=== PATIENT | female | born 1940 | race Caucasian/White ===

== ENCOUNTER → 2018-05-10 08:41 | Outpatient (CLI) | payer MEDICARE, SELFPAY ==
[2018-05-10 11:20] LABS: ALB/GLOB Ratio 1.2 RATIO (0.9-2.4); AST(SGOT) 17 U/L (15-37); Alanine Aminotransfer ALT/SGPT 19 U/L (13-56); Albumin, Serum 3.8 g/dL (3.2-5.0); Alkaline Phosphatase 70 U/L (45-117); Anion Gap 8 (5-15); BUN 16 mg/dL (7-18); BUN/Creat Ratio 21.9 RATIO (10-20); Calcium,Total 8.4 mg/dL (8.5-10.1); Chloride 107 mmol/L (98-107); Creatinine, Serum 0.73 mg/dL (0.55-1.02); EST Glomerular Filtration Rate 82 mL/min (>60); Est Glom Filt Rate - Afr Amer 99 mL/min (>60); Globulin 3.1 g/dL (2.2-4.2); Glucose 95 mg/dL (74-106); Potassium 4.2 mmol/L (3.5-5.1); Protein, Total 6.9 g/dL (6.4-8.2); Sodium Level 142 mmol/L (136-145)
== END ==
PROVIDERS: Family Provider Family Medicine; PCP Family Medicine; Visit Provider Family Medicine
DX: Z00.00 Encounter for general adult medical examination without abnormal findings (principal)
CPT/HCPCS: 36415; 80053

== ENCOUNTER → 2018-07-18 08:11 | Outpatient (CLI) | payer MEDICARE, SELFPAY ==
--- NOTE | 2018-07-18 08:14 | BI_ITS ---
MAMMOGRAPHY - BILATERAL SCREENING REASON FOR EXAM: Female, 78 years old. Routine annual screening examination. PERTINENT HISTORY: Non-contributory. TECHNIQUE: Digital bilateral breast linnette (3D mammographic acquisition) in the CC and MLO projections. 2-D mediolateral oblique (MLO) and craniocaudad (CC) views of both breasts were obtained. CAD: Full Field Digital Mammography with Computer Added Detection was performed. COMPARISON: Comparison is made with prior study dated May 22, 2017 and December 14, 2015. FINDINGS: Breast Composition: There are scattered areas of fibroglandular density. There are no dominant masses or suspicious calcifications. Stable small benign-appearing bilateral axillary lymph nodes. No other significant abnormalities are identified. There has been no significant change since the prior study. BI/SCREENING MAMM (CAD), BILAT IMPRESSION: Stable bilateral screening mammogram. Yearly follow-up mammogram recommended. (A) ASSESSMENT CATEGORY: BIRADS Category 2: Benign. A letter regarding these results will be sent to the patient by the facility within 30 days. Approximately 10% of breast cancers are not detected by mammography. A normal mammogram should not delay biopsy of a clinically suspicious abnormality. [id number] Electronically Signed: Timur Mcduffie MD at 9:32 EST Tel [phone], Service support ,
--- NOTE | 2018-07-18 08:44 | BD_ITS ---
STUDY: DUAL ENERGY X-RAY ABSORPTIOMETRY / DXA REASON FOR EXAM: Female, 78 years old. The patient is postmenopausal. Loss of height. TECHNIQUE: Bone Mineral Density (BMD) measurements of lumbar spine and bilateral hips were obtained. COMPARISON: Comparison is made with prior study dated October 09, 2013. FINDINGS: Lumbar Spine (L1-L4): g/cm2 (1.668) / T-score (3.9) / Z-score (5.7) Findings are suggestive of normal bone density with a low fracture risk. Increased thoracic kyphosis. Left Femur Total: g/cm2 (1.228) / T-score (1.8) / Z-score (3.5) Left Femoral Neck: g/cm2 (1.190) / T-score (1.1) / Z-score (3.1) Right Femur Total: g/cm2 (1.161) / T-score (1.2) / Z-score (3.0) Right Femoral Neck: g/cm2 (1.126) / T-score (0.6) / Z-score (2.6) The T-Scores on the most recent prior examination were: Lumbar Spine (L1-L4): There has been improvement of bone density since the previous examination. Left Femur Total: which represents a worsening of 1.8%. Right Femur Total: which represents a worsening of 6.3%. BD/Dexa Bone Density Study IMPRESSION: The patient is considered normal as outlined below according to World Roderick Organization (WHO) criteria with a low fracture risk. There has been worsening of bone density since the previous examination. Reference Information: The T-score is the number of standard deviations above or below the standard which is normal for young adults at their peak bone mineral density. The World Health Organization (WHO) interprets the T-scores as follows: Above -1 Normal bone density Between -1 and -2.5 Osteopenia Equal to / or below -2.5 Osteoporosis As a practical clinical guideline, osteopenia may be graded as follows: Mild -1 through -1.5 Moderate -1.6 through -2.0 Severe -2.1 through -2.4 The Z-score is the number of standard deviations above or below age-matched controls. A Z-score of less than -1.5 would be considered abnormal. References: 1. NIH Osteoporosis and Related Bone Diseases http://www.osteo.org 2. International Society for Clinical Densitometry http://www.iscd.org 3. National Osteoporosis Foundation http://www.nof.org Electronically Signed: Timur Mcduffie MD at 10:07 EST Tel [phone], Service support ,
--- OUTSIDE RECORDS SUMMARY | 2018-09-03 01:12 | XMS RPT_ITS ---
:1940 Author Organization OHIP Care Team Providers Name Role Phone Rey Hussein Attending Unavailable Rey Hussein Referring Unavailable Rey Hussein Primary Care Unavailable DOCTOR, OUT OF TOWN Attending Unavailable Rey Hussein Attending Unavailable Rey Hussein Primary Care Unavailable PROBLEMS PROBLEMS DATE TYPE CONDITION / CODE ATTENDING STATUS SOURCE 07/18/2018 Unknown Z78.0 - Rey Hussein Active [facility] Asymptomatic Community menopausal state / Hospital Z78.0(ICD-10) Repository 07/18/2018 Unknown Z12.31 - Encounter Rey Hussein for screening Community mammogram for Hospital malignant neoplasm Repository of breast / Z12.31(ICD-10) 05/10/2018 Unknown Z00.00 - Encounter Rey Hussein for general adult [facility] Hospital examination Repository without abnormal findings / Z00.00(ICD-10) PROCEDURES PROCEDURES No Procedure Records FoundRESULTS RESULTS SCREENING MAMM (CAD), Observed: 07/18/2018 Status: F Source: [place] BILAT 8:14 AM [facility] REPOSITORY [facility] Imaging Services [address] [address] SCREENING MAMM (CAD), BILAT MR#: [id number] Acct: [id number] Name: PATRICIA CAMPOS Rep #: [id number] : 1940 F 78 From: Timur Mcduffie MD PCP: Rey Hussein MD Status: REG CLI Study: SCREENING MAMM (CAD), BILAT Date of Exam: 07/18/18 Exam# [id number] Ordering Dr: Rey Hussein MD MAMMOGRAPHY - BILATERAL SCREENING REASON FOR EXAM: Female, 78 years old. Routine annual screening examination. PERTINENT HISTORY: Non-contributory. TECHNIQUE: Digital bilateral breast linnette (3D mammographic acquisition) in the CC and MLO projections. 2-D mediolateral oblique (MLO) and craniocaudad (CC) views of both breasts were obtained. CAD: Full Field Digital Mammography with Computer Added Detection was performed. COMPARISON: Comparison is made with prior study dated May 22, 2017 and December 14, 2015. FINDINGS: Breast Composition: There are scattered areas of fibroglandular density. There are no dominant masses or suspicious calcifications. Stable small benign-appearing bilateral axillary lymph nodes. No other significant abnormalities are identified. There has been no significant change since the prior study. BI/SCREENING MAMM (CAD), BILAT IMPRESSION: Stable bilateral screening mammogram. Yearly follow-up mammogram recommended. (A) ASSESSMENT CATEGORY: BIRADS Category 2: Benign. A letter regarding these results will be sent to the patient by the facility within 30 days. Approximately 10% of breast cancers are not detected by mammography. A normal mammogram should not delay biopsy of a clinically suspicious abnormality. [id number] Electronically Signed: Timur Mcduffie MD at 9:32 EST Tel [phone], Service support , CC: Rey Hussein MD Auger Machine Offbearer: Signed DEXA BONE DENSITY Observed: 07/18/2018 Status: F Source: [facility] 8:14 AM [facility] [place] Imaging Services [address] [place] [address] Dexa Bone Density Study MR#: [id number] Acct: [id number] Name: PATRICIA CAMPOS Rep #: [id number] : 1940 F 78 From: Timur Mcduffie MD PCP: Rey Hussein MD Status: REG CLI Study: Dexa Bone Density Study Date of Exam: 07/18/18 Exam# [id number] Ordering Dr: Rey Hussein MD STUDY: DUAL ENERGY X-RAY ABSORPTIOMETRY / DXA REASON FOR EXAM: Female, 78 years old. The patient is postmenopausal. Loss of height. TECHNIQUE: Bone Mineral Density (BMD) measurements of lumbar spine and bilateral hips were obtained. COMPARISON: Comparison is made with prior study dated October 09, 2013. FINDINGS: Lumbar Spine (L1-L4): g/cm2 (1.668) / T-score (3.9) / Z-score (5.7) Findings are suggestive of normal bone density with a low fracture risk. Increased thoracic kyphosis. Left Femur Total: g/cm2 (1.228) / T-score (1.8) / Z-score (3.5) Left Femoral Neck: g/cm2 (1.190) / T-score (1.1) / Z- score (3.1) Right Femur Total: g/cm2 (1.161) / T-score (1.2) / Z- score (3.0) Right Femoral Neck: g/cm2 (1.126) / T-score (0.6) / Z- score (2.6) The T-Scores on the most recent prior examination were: Lumbar Spine (L1-L4): There has been improvement of bone density since the previous examination. Left Femur Total: which represents a worsening of 1.8%. Right Femur Total: which represents a worsening of 6.3%. BD/Dexa Bone Density Study IMPRESSION: The patient is considered normal as outlined below according to World Roderick Organization (WHO) criteria with a low fracture risk. There has been worsening of bone density since the previous examination. Reference Information: The T-score is the number of standard deviations above or below the standard which is normal for young adults at their peak bone mineral density. The World Health Organization (WHO) interprets the T-scores as follows: Above -1 Normal bone density Between -1 and -2.5 Osteopenia Equal to / or below -2.5 Osteoporosis As a practical clinical guideline, osteopenia may be graded as follows: Mild -1 through -1.5 Moderate -1.6 through -2.0 Severe -2.1 through -2.4 The Z-score is the number of standard deviations above or below age-matched controls. A Z-score of less than -1.5 would be considered abnormal. References: 1. NIH Osteoporosis and Related Bone Diseases http://www.osteo.org 2. International Society for Clinical Densitometry http://www.iscd.org 3. National Osteoporosis Foundation http://www.nof.org Electronically Signed: Timur Mcduffie MD at 10:07 EST Tel [phone], Service support , CC: Rey Hussein MD Auger Machine Offbearer: Signed COMPREHENSIVE METABOLIC Collected: 05/10/2018 Status: F Source: [place] [facility] 8:42 AM [facility] [place] TYPE CODE TESTS RESULT OUT OF RANGE REFERENCE UNITS LAB L501.0100 74-106 mg/dL Normal GLU 95 Result Comment: Please note revised GLUCOSE reference range effective 2017. LAB L501.1000 7-18 mg/dL Normal BUN 16 LAB L501.1100 0.55-1.02 mg/dL Normal CREAT,SERUM 0.73 Result Comment: The validity of the calculated GFR AND GFRAA in patients over 70 years has not been determined. Clinical correlation is essential. LAB L501.1110 >60 mL/min Normal EST GFR 82 Result Comment: Non- GFR Calc LAB L501.1115 >60 mL/min Normal EST GFR - AA 99 Result Comment: GFR Calc LAB L501.1300 10-20 RATIO High BUN/CRE 21.9 LAB L501.1500 6.4-8.2 g/dL T Normal PROT 6.9 LAB L501.1800 3.2-5.0 g/dL Normal ALB 3.8 LAB L501.1950 2.2-4.2 g/dL Normal GLOB 3.1 LAB L501.2000 0.9-2.4 RATIO Normal A/G 1.2 LAB L501.2200 8.5-10.1 mg/dL Low CA 8.4 LAB L501.4100 15-37 U/L Normal AST 17 LAB L501.4305 45-117 U/L Normal ALK P 70 LAB L501.4405 13-56 U/L Normal ALT 19 LAB L501.4600 0.20-1.00 mg/dL T Normal BILI 0.50 LAB L501.5300 136-145 mmol/L NA Normal 142 LAB L501.5600 3.5-5.1 mmol/L K Normal 4.2 LAB L501.5900 98-107 mmol/L CL Normal 107 LAB L501.6100 21.0-32.0 mmol/L Normal CO2 27.0 LAB L501.6200 5-15 Normal GAP 8 Performed By: #### L500.4050 #### [facility] [address] [place], [address] ALLERGIES ALLERGIES No Allergies Records FoundENCOUNTERS ENCOUNTERS ADMIT/DISCHARGE ACCOUNT ADMITTING ENCOUNTER LOCATION SOURCE NUMBER CLASS 07/18/2018 [id number] Ambulatory [facility] 8 [facility] ing:OPBI Repository 05/10/2018 [id number] Ambulatory [facility] 6 [facility] ing:MFPLAB Repository 02/08/2018 [id number] Ambulatory [facility] 3 [facility] ing:MASS Repository PAYERS PAYERS ENCOUNTER GUARANTOR PAYER SUBSCRIBER SOURCE 07/18/2018 PATRICIA JUANY Primary [id number] Community PATRICK PLUNIT MEDICAREPolicy [id number] Number: Repository [id number]: (383) [id number] (HP) Date:[id number] [place] [address]HA: 07/18/2018 Secondary NOT GIVENUNK [place] Insurance:SELF PAY [facility] Number: Effective Repository Date:2018-06-03 05/10/2018 PATRICIA JUANY Primary PATRICIA JUNAY Angel Luis [id number] [facility] Community PATRICK MEDICAREPolicy [id number] PLACEUNIT Number: Repository [address], [place] [id number] [id number]: 330) Date:[id number] [phone] () 362[facility] [place], [place] [address]EE: 05/10/2018 Secondary NOT GIVENUNK [place] Insurance:SELF PAY [facility] Number: Effective Repository Date:2018-05-10 02/08/2018 Patricia Juany Primary NOT GIVENUNK [place] [id number] Insurance:SELF PAY [facility] PlaceUnit Number: Effective [facility] [place] [place] Date:2016-12-19 [id number]: ()
== END ==
PROVIDERS: Family Provider Family Medicine; PCP Family Medicine; Referring Provider Family Medicine; Visit Provider Family Medicine
DX: Z12.31 Encounter for screening mammogram for malignant neoplasm of breast (principal); Z78.0 Asymptomatic menopausal state
CPT/HCPCS: 77063; 77067; 77080

== ENCOUNTER → 2019-05-15 10:28 | Outpatient (CLI) | payer MEDICARE, SELFPAY ==
[2019-05-15 12:40] LABS: Anion Gap 3 (5-15); BUN 16 mg/dL (7-18); BUN/Creat Ratio 19.5 RATIO (10-20); Calcium,Total 9.1 mg/dL (8.5-10.1); Chloride 107 mmol/L (98-107); Creatinine, Serum 0.82 mg/dL (0.55-1.02); EST Glomerular Filtration Rate 72 mL/min (>60); Est Glom Filt Rate - Afr Amer 87 mL/min (>60); Glucose 83 mg/dL (74-106); Potassium 4.2 mmol/L (3.5-5.1); Sodium Level 143 mmol/L (136-145)
== END ==
PROVIDERS: Family Provider Family Medicine; PCP Family Medicine; Referring Provider Family Medicine; Visit Provider Family Medicine
DX: Z00.00 Encounter for general adult medical examination without abnormal findings (principal)
CPT/HCPCS: 36415; 80048

== ENCOUNTER → 2019-08-07 07:28 | Outpatient (CLI) | payer MEDICARE, SELFPAY ==
--- NOTE | 2019-08-07 07:31 | BI_ITS ---
MAMMOGRAPHY - BILATERAL SCREENING 3-D TOMOSYNTHESIS REASON FOR EXAM: Female, 79 years old. BILAT SCREENING - NO FAM HX - NO PREV SURG''S - LT MOLES MARKED PERTINENT HISTORY: No significant family history. TECHNIQUE: 2-D mammograms and 3-D Tomosynthesis of the breast (s) were performed. CAD was performed. COMPARISON: July 18, 2018. FINDINGS: The breast composition is composed of scattered fibroglandular density. Scattered benign calcifications are seen. No dense spiculated masses or suspicious microcalcifications are identified. No architectural distortion is identified. There is no skin thickening or retraction. There has been no significant change since the prior study. BI/SCREEN MAMM (CAD) W/FARZANEH BILAT IMPRESSION: No mammographic signs of malignancy. Routine yearly mammograms recommended. ASSESSMENT CATEGORY: BIRADS Category 2: Benign. A letter regarding these results will be sent to the patient by the facility within 30 days. FOLLOW UP RECOMMENDATION: Yearly follow up mammogram recommended. (A) Approximately 10% of breast cancers are not detected by mammography. A normal mammogram should not delay biopsy of a clinically suspicious abnormality. Electronically Signed: Hosea Carroll MD at 8:34 EST , Service support ,
== END ==
PROVIDERS: Family Provider Family Medicine; PCP Family Medicine; Referring Provider Family Medicine; Visit Provider Family Medicine
DX: Z12.31 Encounter for screening mammogram for malignant neoplasm of breast (principal)
CPT/HCPCS: 77063; 77067

== ENCOUNTER 2019-09-28 11:18 | Observation (INO) | payer MEDICARE, SELFPAY ==
[2019-09-28] VITALS (11 sets, daily range): BP systolic 131–166; BP diastolic 58–93; PULSE 55–78; RESP 12–19; TEMP 36.8–36.9; O2SAT 95–98; BMI 29.0; BMI 28.5
--- NOTE | 2019-09-28 11:40 | EKG12_ITS ---
Test Reason : CP ADMISSION Blood Pressure : / mmHG Vent. Rate : 059 BPM Atrial Rate : 059 BPM P-R Int : 146 ms QRS Dur : 088 ms QT Int : 426 ms P-R-T Axes : 060 036 027 degrees QTc Int : 421 ms Sinus bradycardia Otherwise normal ECG Confirmed by SIVAKUMAR JAVIER, ROE ([id number]), order editor JUNE ZUNIGA ([id number]) on 10/01/2019 2:04:49 PM Referred By: CATALINO Confirmed By:ROE SHAVER MD
--- NOTE | 2019-09-28 11:40 | RAD_ITS ---
STUDY: X-RAY CHEST REASON FOR EXAM: Female, 79 years old. Chest pressure TECHNIQUE: Frontal view of the chest COMPARISON: None. FINDINGS: The lungs are clear. There are no pleural effusions. There is no pneumothorax. The heart is normal in size. The visualized osseous structures are within normal limits. RAD/Chest 1 View (Portable) IMPRESSION: No acute thoracic pathology. Electronically Signed: Rosendo Thompson, at 12:09 EST Tel , Service support ,
[2019-09-28 11:51] LABS: Absolute Lymphocyte Count 1.05 X10^3/uL (0.83-4.51); Absolute Neutrophil Count 4.3 X10^3/uL (2.0-7.7); Basophil# 0.05 X10^3/uL; Basophil% 0.8 % (0-1); Eosinophil# 0.08 X10^3/uL; Eosinophils% 1.3 % (0-5); Hematocrit 43.5 % (37-47); Hemoglobin 14.6 g/dL (12.0-15.0); Lymphocyte # 1.05 X10^3/ul (4.0); Lymphocyte % 17.4 % (19-41); Mean Corp Hgb Conc 33.6 g/dL (32-36); Mean Corpuscular Hgb 29.9 pg (27.0-32.0); Mean Corpuscular Volume 89.1 fL (81-99); Mean Platelet Vol. 11.3 fl (6.2-12.0); Monocyte# 0.57 X10^3/uL; Monocyte% 9.5 % (0-10); NRBC Flagged by Analyzer 0 % (0-5); Neutrophil # 4.26 X10^3/uL (2.7-7.7); Neutrophil % 70.8 % (47-70); Platelet Count 155 K/mm3 (150-450); RBC Distribution Width CV 12.8 % (11.6-14.6); RBC Distribution Width SD 41.5 fl (35.1-43.9); Red Blood Count 4.88 M/mm3 (4.2-5.4)
[2019-09-28] MEDS: Aspirin 81 MG TAB.CHEW 324 MG PO (12:08)
[2019-09-28] MEDS: 0.9% Normal Saline 1,000 ML 150 ML IV (12:08)
[2019-09-28 12:11] LABS: Anion Gap 4 (5-15); BUN 15 mg/dL (7-18); BUN/Creat Ratio 18.3 RATIO (10-20); Calcium,Total 9.3 mg/dL (8.5-10.1); Chloride 108 mmol/L (98-107); Creatinine, Serum 0.82 mg/dL (0.55-1.02); EST Glomerular Filtration Rate 72 mL/min (>60); Est Glom Filt Rate - Afr Amer 87 mL/min (>60); Estimated Creatinine Clearance 47.53 ml/min; Glucose 93 mg/dL (74-106); Potassium 3.9 mmol/L (3.5-5.1); Sodium Level 141 mmol/L (136-145)
--- NOTE | 2019-09-28 12:18 | ED.DCSUM_ITS ---
- ER Visit Summary Date of Service: 09/28/19 Chief Complaint: [Chest pain] History of Present Illness: The patient is a 79 F [presents with chest pain that started while in [employer] today around 9:30 AM. 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 Patient felt a little lightheaded with it. Patient was able to continue singing and her symptoms resolved after about 3 to 4 minutes. Subsequently she went in for the second service and just did not feel well so she came in to be evaluated. She is never had discomfort like this before. Patient is quite active and has not been experiencing exertional dyspnea or chest discomfort with activity. No recent travel or surgery. She tells me she has no medical history. Her last stress test was over 10 years ago. Patient has had no prior surgeries. Patient has no discomfort at this time.] Physical Examination: [HEENT-PERRLA, EOMI. Cranial nerves II through XII grossly intact. TMs clear. Mucous membranes moist. No adenopathy. Cardiovascular-regular rate and rhythm without murmur or ectopy Lungs-clear to auscultation, chest wall stable without crepitus or subcu emphysema Abdomen-normoactive bowel sounds, soft, nontender, no rebound or rigidity, no peritoneal signs. Extremities-intact ?4, normal range of motion, normal pulses, atraumatic] Test Results: [EKG obtained arrival shows sinus rhythm with a ventricular rate of 53 bpm with no acute ST segment changes. CBC with differential showing a 6.0, hemoglobin 14.6, hematocrit 43, plates 155. Chemistries unremarkable. Troponin is less than 0.015. Chest x-ray showed nothing acute.] Emergency Department Course and Treatment: [Placed on a quality assurance monitor body on arrival and IV line was established with normal saline. Patient was given aspirin.] Treatment Plan: [Admit for further work-up and evaluation of her chest pain] Disposition: [Admit] Impression: [Chest pain-rule out acute coronary syndrome] This note was generated with [employer]ation software. It may contain incorrect words, spelling, and punctuation that were not noted in review of the chart prior to signing ED Disposition - Plan for ED Patient: Referrals: Rey Hussein MD [Primary Care Provider] -
--- NOTE | 2019-09-28 13:28 | EKG12_ITS ---
Test Reason : CP Blood Pressure : / mmHG Vent. Rate : 053 BPM Atrial Rate : 053 BPM P-R Int : 146 ms QRS Dur : 086 ms QT Int : 432 ms P-R-T Axes : 055 030 023 degrees QTc Int : 405 ms Sinus bradycardia Otherwise normal ECG Confirmed by JOSE DANIEL LUJAN ([id number]), scientific editor GUILLE MENDENHALL ([id number]) on 10/01/2019 2:54:03 PM Referred By: SHYANN/LIV Confirmed By:JOSE DANIEL LUJAN
--- NOTE | 2019-09-28 14:22 | PCM.HP.STD ---
History of Present Illness Date of Admission: 09/28/19 Chief Complaint: chest pain The patient is a 79 year old F who was in her normal state of health today was at [employer] in the choir and felt some heaviness in her upper chest and then just felt off. Symptoms lasted for minutes. Patient was seen by someone who works as an EMT at [employer] who advised her to come to the hospital. In the emergency room, patient received aspirin and IV fluids. Currently feeling fine. Patient denies ever having had symptoms such as this before. Symptoms began around 9:30 AM. [] Past Medical History Medical History: Medical History (Last Updated 09/28/19 @ 14:[address] Trevor Lopez DO) Osteoarthritis M19.90 Allergies amoxicillin Allergy (Verified 09/28/19 11:19) Rash Home Medications: Ambulatory Orders Medication Instructions Recorded Naproxen [Naprosyn] 500 mg PO DAILY PRN PRN 09/28/19 Oxybutynin Chloride [Oxybutynin 5 mg PO QODAY 09/28/19 Chloride ER] Smoking Status: Never smoker - *Family History Maternal Family History: Family History (Last Updated 09/28/19 @ 14:[address] Trevor Lopez DO) Other Heart disease Review of Systems Constitutional: Denies: Anorexia, Chills Eyes: Denies: Blurred vision, Double vision HEENT: Denies: Head Aches, Sinus Congestion, Sinus Drainage Cardiovascular: Denies: Chest Pain Respiratory: Denies: Cough, Shortness of breath at rest, Sputum production Gastrointestinal: Denies: Abdominal Pain, Nausea, Vomiting Genitourinary: Denies: Dysuria Musculoskeletal: Denies: Joint Pain, Joint Tenderness Skin: Denies: Dryness, Jaundice Neurological: Denies: Numbness, Tingling, Focal weakness Psychiatric: Denies: Anxiety, Depression Hematologic/ Lymphatic: Denies: Easy Bruising, Easy Bleeding, Hx of blood clot VTE Information - Inpt Only VTE Present on Admission: No VTE Mechan Device Prophylaxis: None VTE Pharm Prophylaxis ordered?: No - Physical Exam Vitals/I&O's: Vital Signs Temp Pulse Resp BP Pulse Ox 36.8 C 67 18 156/83 H 97 09/28/19 13:18 09/28/19 13:18 09/28/19 13:18 09/28/19 13:18 09/28/19 13:25 Oxygen Delivery Method Room Air Weight: 73 kg Body Mass Index (BMI) 28.5 General: Alert, Cooperative, No apparent distress HEENT: Atraumatic, Normocephalic Oral: Moist Mucosa, No Gingival or Mucosal Lesions/ Ulcerations Neck: No Nodes, Trachea Midline Lungs: Clear to auscultation, Normal air movement, No rhonchi, No wheeze, No rales Cardiovascular: Regular rate, Regular Rhythm, Normal S1, Normal S2, No murmurs Abdomen: Bowel Sounds Present, Soft, Non Tender, Non-Distended, No Hepato-splenomegaly Extremities: No edema, Capillary Refill Less than 3 Seconds Skin: No rashes, No breakdown Psych/Mental Status: Normal Affect, Appropriate Laboratory Results 09/28/19 11:30: WBC 6.0, RBC 4.88, Hgb 14.6, Hct 43.5, MCV 89.1, MCH 29.9, MCHC 33.6, RDW Std Deviation 41.5, RDW Coeff of Cliff 12.8, Plt Count 155, MPV 11.3, Immature Gran % (Auto) 0.200, Neut % (Auto) 70.8 H, Lymph % (Auto) 17.4 L, Grady % (Auto) 9.5, Eos % (Auto) 1.3, Baso % (Auto) 0.8, Absolute Neuts (auto) 4.3, Absolute Lymphs (auto) 1.05, Nucleated RBC % 0 09/28/19 11:30: Sodium 141, Potassium 3.9, Chloride 108 H, Carbon Dioxide 29.0, Anion Gap 4 L, BUN 15, Creatinine 0.82, Estim Creat Clear Calc 47.53, Est GFR (MDRD) Af Amer 87, Est GFR (MDRD) Non-Af 72, BUN/Creatinine Ratio 18.3, Glucose 93, Calcium 9.3, Troponin I < 0.015 EKG NSR with no acute changes Clinical Impression(s) from Imaging Studies Chest X-Ray 09/28/19 11:40 IMPRESSION: No acute thoracic pathology. Electronically Signed: Rosendo Thompson, at 12:09 EST Tel , Service support , Current Medications Sodium Chloride () 1,000 mls @ 150 mls/hr IV .[id number] [facility] Last Admin: 09/28/19 12:08 Dose: 150 mls/hr Documented by: Sodium Chloride () 10 - 40 ml IV UD PRN PRN Reason: SALINE FLUSH Assessment/Plan 1. chest pain treadmill echo, if negative, dc home may have been vasovagal type event. Patient denies performance anxiety 2. VTE prophylaxis: not indicated 3. ACP: full code. Code Visit OBSV E&M: 44360 Initial observation care L2
[2019-09-28] MEDS: Oxybutynin 5 MG Tablet PO (20:50)
[2019-09-29 03:15] VITALS: BP 126/52; PULSE 57; RESP 16; TEMP 36.9; O2SAT 94
[2019-09-29 03:42] VITALS: PULSE 55
--- NOTE | 2019-09-29 05:55 | STE_ITS ---
Reason For Study: Chest Pain Stress Results Protocol: Shade Protocol Maximum Predicted HR: 143 bpm Target HR: 122 bpm % Maximum Predicted HR: 85 % DurationHeart Rate Stage (mm:ss) (bpm) BP Comment Baseline 50 126/70No Chest Pain Shade Protocol Stage I 3:00 106 132/74No Chest Pain; Mild Dyspnea Shade Protocol Stage II 3:00 112 158/70No Chest Pain; Mild Dyspnea Shade Protocol Stage III 0:06 121 / No Chest Pain; Mod Dyspnea Recovery 64 118/70No Chest Pain Stress Duration: 6:06 mm:ss Maximum Stress HR: 121 bpm METS: 7 Baseline Echocardiogram Findings The estimated ejection fraction is 65 %. Stress Echo Wall motion Data Resting WM Intermediate WM Stress WM Resting Wall Motion Wall Motion Stress No regional wall motion No regional wall motion abnormalities noted. abnormalities noted. EKG Data The baseline ECG displays normal sinus rhythm. The patient exercised according to the regular Shade protocol for a total duration of 6:07. The maximum heart rate attained was 121 beats per minute. This was 84% of maximum predicted heart rate. The patient exercised into stage 3 of the Shade protocol. During stress, there were no ST or T wave changes noted to suggest ischemia. No clinical angina was noted. No arrhythmias noted. Interpretation Summary The estimated ejection fraction is 65 %. Normal, adequate, treadmill echocardiogram. Negative for ischemia by EKG and echocardiographic criteria. No anginal symptoms noted. No arrhythmias noted. Average exercise capacity for age. Appropriate blood pressure response to exercise. Final LVEF is 75%. Test terminated due to fatigue. Patient tolerated procedure well. No complications. Ordering Physician: Trevor Lopez Referring Physician: Paco Toro Performed By: Freddy Dubois RCS
--- NOTE | 2019-09-29 05:55 | EKG12_ITS ---
Test Reason : AM EKG Blood Pressure : / mmHG Vent. Rate : 066 BPM Atrial Rate : 066 BPM P-R Int : 158 ms QRS Dur : 090 ms QT Int : 426 ms P-R-T Axes : 061 040 021 degrees QTc Int : 446 ms Normal sinus rhythm Normal ECG When compared with ECG of 28-SEP-2019 13:18, MANUAL COMPARISON REQUIRED, DATA IS UNCONFIRMED Confirmed by JOSE DANIEL LUJAN ([id number]), metropolitan editor GUILLE MENDENHALL ([id number]) on 10/01/2019 3:14:39 PM Referred By: DR BAE Confirmed By:JOSE DANIEL LUJAN
[2019-09-29] MEDS: Aspirin E.C. 81 MG Tablet PO (06:19)
[2019-09-29 06:57] LABS: Cholesterol 199 mg/dL (200); High Density Lipoprotein 49 mg/dL; Triglycerides 110 mg/dL; Very Low Density Lipoprotein 22 mg/dL (5-40)
[2019-09-29 07:30] VITALS: PULSE 58
[2019-09-29 08:30] VITALS: BP 133/60; PULSE 52; RESP 16; TEMP 36.9; O2SAT 97
[2019-09-29 11:20] VITALS: PULSE 63
--- NOTE | 2019-09-29 11:31 | DCINST_ITS ---
You will use the following diet at home:: No restrictions Discharge Activity: Return to Normal Activity Allergies/Adverse Reactions: Allergies amoxicillin Allergy (Verified 09/28/19 11:19) Rash Medications to take at Discharge Oxybutynin Chloride [Oxybutynin Chloride ER] 5 mg PO QODAY 09/28/19 Primary Care Physician: Rey Hussein MD [Primary Care Provider] - Please follow up with your Primary Care Physician in: in 1 week for GI referral Test Results: Test results from this visit will be discussed in further detail at your follow- up appointment, if applicable. Proposed Discharge Date: 09/29/19
--- NOTE | 2019-09-29 11:33 | DS.PCM_ITS ---
Discharge Date and Diagnosis - Problem List Patient Problems: Active and Suspected Problems (Last Updated 09/28/19 @ 14:[address] Trevor Lopez DO) Chest pain (Acute) Date of Admission: 09/28/19 Date of Discharge: 09/29/19 - Primary Discharge Diagnosis Active and Suspected Problems (Last Updated 09/28/19 @ 14:[address] Trevor Lopez DO) Chest pain (Acute) Hospital Course and Treatment Imaging Results: 09/29/19 05:55 Stress Test Echo w/o Contrast [ECHO] Routine Clinical Impression(s) from Imaging Studies Chest X-Ray 09/28/19 11:40 IMPRESSION: No acute thoracic pathology. Electronically Signed: Rosendo Donna, at 12:09 EST Tel , Service support , Summary of Care Provided: The patient is a 79 year old F relatively good health who presented with chest pain. Admitted to monitored bed MN was ruled out with serial cardiac enzymes underwent stress echo which was negative for stress-induced ischemia. Patient was discharged instructed to follow-up with PCP for possible referral for GI evaluation. Patient was also on naproxen discontinued on discharge Patient Problems: Active and Suspected Problems (Last Updated 09/28/19 @ 14:[address] Trevor Lopez DO) Chest pain (Acute) Objective: GENERAL: cooperative HEENT: Atraumatic; EYES; Anicteric, Normal Conjunctiva NECK; supple, normal thyroid, RESPIRATORY: Diminished to auscultation SKIN: No Rash PSYCH; Flat affect - Physical Exam Vitals/I&O's: Vital Signs Temp Pulse Resp BP Pulse Ox 98.5 F 52 L 16 133/60 H 97 09/29/19 08:30 09/29/19 08:30 09/29/19 08:30 09/29/19 08:30 09/29/19 08:30 Oxygen Delivery Method Room Air Weight: 73 kg Body Mass Index (BMI) 28.5 Intake and Output for Last 24 Hours 09/27/19 09/28/19 09/29/19 23:59 23:59 23:59 Intake Total 1420 / 1420 30 / 30 Balance 1420 / 1420 30 / 30 Laboratory Results 09/28/19 11:30: WBC 6.0, RBC 4.88, Hgb 14.6, Hct 43.5, MCV 89.1, MCH 29.9, MCHC 33.6, RDW Std Deviation 41.5, RDW Coeff of Cliff 12.8, Plt Count 155, MPV 11.3, Immature Gran % (Auto) 0.200, Neut % (Auto) 70.8 H, Lymph % (Auto) 17.4 L, [place] % (Auto) 9.5, Eos % (Auto) 1.3, Baso % (Auto) 0.8, Absolute Neuts (auto) 4.3, Absolute Lymphs (auto) 1.05, Nucleated RBC % 0 09/28/19 11:30: Sodium 141, Potassium 3.9, Chloride 108 H, Carbon Dioxide 29.0, Anion Gap 4 L, BUN 15, Creatinine 0.82, Estim Creat Clear Calc 47.53, Est GFR (MDRD) Af Amer 87, Est GFR (MDRD) Non-Af 72, BUN/Creatinine Ratio 18.3, Glucose 93, Calcium 9.3, Troponin I < 0.015 09/28/19 14:10: Troponin I < 0.015 09/28/19 18:05: Troponin I 0.021 09/29/19 06:24: Triglycerides 110, Cholesterol 199, LDL Cholesterol 128, VLDL Cholesterol 22, HDL Cholesterol 49 Current Medications Acetaminophen (Tylenol) 650 mg PO Q6H PRN PRN PRN Reason: Pain Score 1-10/Temp > 100.7 F Aspirin (Ecotrin) 81 mg PO DAILY@0800 [facility] Last Admin: 09/29/19 06:19 Dose: 81 mg Documented by: Nitroglycerin (Nitrostat) 0.4 mg SUBLINGUAL Q5M PRN PRN Reason: CARDIAC/CHEST PAIN Ondansetron HCl (Zofran) 4 mg IV Q8H PRN PRN PRN Reason: NAUSEA/VOMITING Oxybutynin Chloride (Ditropan) 5 mg PO QODAY@2100 [facility] Last Admin: 09/28/19 20:50 Dose: 5 mg Documented by: Discharge Diet: No Restrictions Discharge Activity: Return to Normal Activity Home Medications: Medications to take at Discharge Oxybutynin Chloride [Oxybutynin Chloride ER] 5 mg PO QODAY 02/23/20 Primary Care Physician: Rey Hussein MD [Primary Care Provider] - Please follow up with your Primary Care Physician in: in 1 week for GI referral Disposition: Home Minutes spent on discharge:: 35 Patient Condition:: Good Medical Necessity - Tobacco Use Smoking Status: Never smoker Meaningful Use Info Meaningful Use Diagnoses (Choose all that apply): None applicable Code Visit OBSV E&M: 37320 Observation care discharge
--- NOTE | 2019-09-29 11:40 | PHA.DC.MR ---
Pharmacy Service has performed discharge medication reconciliation for this patient. No new medications prescribed at discharge. Medications reviewed are from previously reported home medications. The patient's discharge medication list was reviewed for discrepancies and discrepancies were resolved. Home Medications Oxybutynin Chloride [Oxybutynin Chloride ER] 5 mg PO QODAY 09/28/19
[2019-09-29 13:05] VITALS: BP 130/52; PULSE 58; RESP 18; TEMP 36.7; O2SAT 97
== END 2019-09-29 11:32 | disposition home or self-care (01) ==
LOC: ED 11:46 → PCU 14:52
PROVIDERS: Emergency Provider Emergency Medicine; PCP Family Medicine; Visit Provider Internal Medicine
DX: R07.89 Other chest pain (principal); R42 Dizziness and giddiness; R06.09 Other forms of dyspnea; M19.90 Unspecified osteoarthritis, unspecified site; Z79.899 Other long term (current) drug therapy
CPT/HCPCS: 36415; 71045; 80048; 80061; 84484; 85025; 93005; 93017; 93350; 96360; 96361; 99218; 99285; J7030; A4216; G0378

== ENCOUNTER → 2020-05-20 08:41 | Outpatient (CLI) | payer MEDICARE, SELFPAY ==
[2019-09-28 13:12] VITALS: BMI 28.5
[2020-05-20 10:22] LABS: Anion Gap 4 (5-15); BUN 15 mg/dL (7-18); BUN/Creat Ratio 18.8 RATIO (10-20); Chloride 107 mmol/L (98-107); EST Glomerular Filtration Rate 74 mL/min (>60); Est Glom Filt Rate - Afr Amer 90 mL/min (>60); Glucose 94 mg/dL (74-106); Potassium 4.2 mmol/L (3.5-5.1); Sodium Level 141 mmol/L (136-145)
[2020-05-20 10:29] LABS: Vitamin D,25 Hydroxy 41.4 ng/mL
== END ==
PROVIDERS: PCP Family Medicine; Referring Provider Family Medicine; Visit Provider Family Medicine
DX: Z00.00 Encounter for general adult medical examination without abnormal findings (principal); E55.9 Vitamin D deficiency, unspecified
CPT/HCPCS: 36415; 80048; 82306

== ENCOUNTER → 2020-08-13 10:32 | Outpatient (CLI) | payer MEDICARE, SELFPAY ==
[2019-09-28 13:12] VITALS: BMI 28.5
--- NOTE | 2020-08-13 10:34 | BI_ITS ---
MAMMOGRAPHY - BILATERAL SCREENING REASON FOR EXAM: Female, 80 years old. Routine annual screening examination. PERTINENT HISTORY: Non-contributory. TECHNIQUE: Digital bilateral breast farzaneh (3D mammographic acquisition) in the CC and MLO projections. 2-D mediolateral oblique (MLO) and craniocaudad (CC) views of both breasts were obtained. CAD: Full Field Digital Mammography with Computer Added Detection was performed. COMPARISON: Comparison is made with prior study dated 08/07/2019 and 07/18/2018. FINDINGS: Breast Composition: There are scattered areas of fibroglandular density. There are no dominant masses or suspicious calcifications. No other significant abnormalities are identified. There has been no significant change since the prior study. BI/SCREEN MAMM (CAD) W/FARZANEH BILAT IMPRESSION: Stable bilateral screening mammogram. Yearly follow-up mammogram recommended. (A) ASSESSMENT CATEGORY: BIRADS Category 1: Negative. A letter regarding these results will be sent to the patient by the facility within 30 days. Approximately 10% of breast cancers are not detected by mammography. A normal mammogram should not delay biopsy of a clinically suspicious abnormality. [id number] Electronically Signed: Timur Mcduffie, at 11:25 EST , Service support ,
== END ==
PROVIDERS: PCP Family Medicine; Referring Provider Family Medicine; Visit Provider Family Medicine
DX: Z12.31 Encounter for screening mammogram for malignant neoplasm of breast (principal)
CPT/HCPCS: 77063; 77067

== ENCOUNTER → 2021-06-24 08:44 | Outpatient (CLI) | payer MEDICARE, SELFPAY ==
[2021-06-24 10:33] LABS: Anion Gap 5 (5-15); BUN 16 mg/dL (7-18); BUN/Creat Ratio 20.5 RATIO (10-20); Calcium,Total 8.8 mg/dL (8.5-10.1); Chloride 105 mmol/L (98-107); Creatinine, Serum 0.78 mg/dL (0.55-1.02); EST Glomerular Filtration Rate 76 mL/min (>60); Est Glom Filt Rate - Afr Amer 92 mL/min (>60); Glucose 102 mg/dL (74-106); Potassium 4.2 mmol/L (3.5-5.1); Sodium Level 140 mmol/L (136-145)
== END ==
PROVIDERS: PCP Family Medicine; Referring Provider Family Medicine; Visit Provider Family Medicine
DX: Z00.00 Encounter for general adult medical examination without abnormal findings (principal)
CPT/HCPCS: 36415; 80048

== ENCOUNTER 2021-08-23 14:10 | Outpatient (CLI) | payer MEDICARE, SELFPAY ==
--- NOTE | 2021-08-23 14:13 | BI_ITS ---
MAMMOGRAPHY - BILATERAL SCREENING REASON FOR EXAM: Female, 81 years old. Routine annual screening examination. PERTINENT HISTORY: Non-contributory. TECHNIQUE: Digital bilateral breast farzaneh (3D mammographic acquisition) in the CC and MLO projections. 2-D mediolateral oblique (MLO) and craniocaudad (CC) views of both breasts were obtained. CAD: Full Field Digital Mammography with Computer Added Detection was performed. COMPARISON: Comparison is made with prior study dated 08/13/2020 and 08/07/2019. FINDINGS: Breast Composition: There are scattered areas of fibroglandular density. There are no dominant masses or suspicious calcifications. No other significant abnormalities are identified. There has been no significant change since the prior study. BI/SCRN MAMM (CAD)W/FARZANEH BILAT IMPRESSION: Stable bilateral screening mammogram. Yearly follow-up mammogram recommended. (A) ASSESSMENT CATEGORY: BIRADS Category 1: Negative. A letter regarding these results will be sent to the patient by the facility within 30 days. Approximately 10% of breast cancers are not detected by mammography. A normal mammogram should not delay biopsy of a clinically suspicious abnormality. [id number] Electronically Signed: Timur Mcduffie MD at 14:53 EST , Service support ,
== END 2021-08-23 23:59 | disposition short-term general hospital (02) ==
LOC: OPBI 14:11
PROVIDERS: PCP Family Medicine; Referring Provider Family Medicine; Visit Provider Family Medicine
DX: Z12.31 Encounter for screening mammogram for malignant neoplasm of breast (principal)
CPT/HCPCS: 77063; 77067

== ENCOUNTER 2021-12-07 12:30 | Outpatient (RCR) | payer MEDICARE, SELFPAY ==
--- NOTE | 2021-10-25 13:41 | HP.PTEVAL ---
Patient's Visit Information MOHINI CAMPOS is a 81 year old F referred to Physical Therapy by Dr. Matt Donald DO with a diagnosis of R knee OA. Date of Evaluation: 10/25/21 Physical Therapist: Paulie Lane, PT, ATC - Visit Plan Frequency: 2x /Week Duration: 1 Week Plan: Issue and instruct on HEP of R LE strengthening and core stab ex's over next 2 visits, then follow up in one month after that - Subjective Pt reports her R knee has been sore for approximately 6 years intermittently. Pt reports she had recent xrays which revealed OA in her knee with the medial compartment being bone on bone. Pt reports she was given the option of injections or PT, so she chose PT at this time. Pt reports she is very active and still likes to go on walks when the weather is nice. Pt reports she is still able to walk as she chooses, but has significant difficulty with negotiation stairs secondary to pain. Pt also reports she feels like her R knee just doesnt work right at this time. Pt denies tingling or numbness in R LE. No sleep difficulty at this time secondary to pain. 3/10 pain at rest, 7/10 pain at worst. Pt denies R knee giving out on her, locking up, or popping at this time. - Pain R knee OA Pain Intensity (Out of 10): 3 Pain Intensity Range: 7 - Objective Neuro: B LE sensation is WNL to light touch. B patellar reflex= 3+/3. Girth at joint line: B knees 40 cm. ROM: L knee 0-130, R knee 0-5-115. MMT: R knee flex= 19.6, ext= 24; L knee flex= 12, ext= 15 #F. Gait: Pt is able to ambulate greater than 680 feet without difficulty at this time - Balance/Special Test Scores Lower Extremity Functional Score: 51 - Goals Goal 1:: Decrease R knee pain x 50% to aid with stairs Goal Time Frame: 2 Weeks Goal 2:: I with HEP Goal Time Frame: 2 Weeks - Rehabilitation Potential Physical Therapy Diagnosis: R knee pain, weakness, and limited ROM secondary to degenerative changes in R knee Rehabilitation Potential: Good - Anticipated Interventions Patient/Client Instruction: Educate patient on: Condition, Plan of Care For the Purpose of:: To improve self management Therapeutic Exercise to Include: Strength training, Endurance training, Balance training, Active ROM, Dynamic Lumbar Stabilization For the Purpose of:: To decrease pain, To increase ROM, To improve muscle performance and motor function Thank you for the opportunity to evaluate your patient. For Medicare and Medicare HMO plans, please review the plan of care and approve it. It will need to be FAXED BACK to us at [phone] for Medicare purposes. For Medicare only, by signing this I certify the plan of care. Please let me know if there are questions or concerns regarding this plan of care. Physician Signature: Date:
--- NOTE | 2021-12-07 13:16 | HP.PTDCSUM ---
It has been my pleasure to treat MOHINI CAMPOS referred by Dr. Matt Donald DO, with the diagnosis of R knee OA for a total of 4 visit(s). Discharge Date: Please see the following information for a summary of their discharge status. Subjective: I am ready to be I with ex's R knee OA Pain Intensity (Out of 10): 3 Objective/Function: R knee pain 3/10 to 5-6/10. R knee ROM: 0-8-125. R knee MMT: ext= 29, flex= 31 #F. Pt is I with HEP. Rx goals achieved Goal 1:: Decrease R knee pain x 50% to aid with stairs Goal Progress: Goal Met Goal 2:: I with HEP Goal Progress: Goal Met Plan: Discharge to HEP If there are questions or concerns regarding this patient's physical therapy, please feel free to call me at [phone]. Thank you for the referral of this patient. Sincerely, Paulie Lane, PT, ATC Balance/Gait/Functional tests - Balance/Special Test Scores Lower Extremity Functional Score: 63
== END 2021-12-07 19:00 | disposition home or self-care (01) ==
LOC: PT 12:30
PROVIDERS: PCP Family Medicine; Referring Provider Orthopaedic Surgery; Visit Provider Orthopaedic Surgery
DX: M17.11 Unilateral primary osteoarthritis, right knee (principal)
CPT/HCPCS: 97110; 97161; 97164

== ENCOUNTER → 2022-07-20 | Outpatient (CLI) | payer MEDICARE, SELFPAY ==
[2022-07-20 15:09] LABS: Anion Gap 9 (5-15); BUN 17 mg/dL (7-18); BUN/Creat Ratio 24.6 RATIO (10-20); Chloride 109 mmol/L (98-107); Creatinine, Serum 0.69 mg/dL (0.55-1.02); EST Glomerular Filtration Rate 87 mL/min (>60); Est Glom Filt Rate - Afr Amer 105 mL/min (>60); Glucose 75 mg/dL (74-106); Potassium 4.3 mmol/L (3.5-5.1); Sodium Level 143 mmol/L (136-145)
== END | disposition home or self-care (01) ==
LOC: MFPLAB 11:53
PROVIDERS: PCP Family Medicine; Referring Provider Family Medicine; Visit Provider Family Medicine
DX: Z00.00 Encounter for general adult medical examination without abnormal findings (principal)
CPT/HCPCS: 36415; 80048

== ENCOUNTER → 2023-03-07 | Outpatient (CLI) | payer MEDICARE, SELFPAY ==
--- NOTE | 2023-03-07 12:50 | ECHOD_ITS ---
Reason For Study: SYNCOPE AND COLLAPSE Procedure This was a 2D Doppler, Color Flow transthoracic echocardiogram. Exam performed in department. Left Ventricle Normal LV size. Left ventricular systolic function is normal. The estimated ejection fraction is 65 %. Stage 1 diastolic dysfunction. No regional wall motion abnormalities noted. Right Ventricle Normal RV size. Normal systolic function. Atria Normal left atrium. Normal right atrium. Mitral Valve Normal mitral valve. Tricuspid Valve Normal tricuspid valve. Mild (1+) tricuspid valve insufficiency. Pulmonary artery systolic pressure is 40 mmHg. Aortic Valve Normal aortic valve. Trisinus/trileaflet aortic valve. Trivial eccentric aortic valve insufficiency. Pulmonic Valve Normal pulmonic valve. Great Vessels Normal aortic root. The pulmonary artery is normal size. Normal inferior vena cava. Pericardium/Pleural No pericardial effusion. MMode/2D Measurements & Calculations LVIDd: 4.8 cm IVSd: 1.3 cm LVOT diam: 2.0 cm LVIDs: 2.5 cm LVPWd: 0.81 cm LVOT area: 3.2 cm2 FS: 47.7 % Ao root diam: 3.4 cm LAV(MOD-bp): 63.5 ml LVAd ap4: 23.7 cm2 LAV(MOD-bp) Indexed: 36.1 ml/m2 LVLd ap4: 7.1 cm LAV(MOD-sp2): 60.0 ml EDV(MOD-sp4): 65.4 ml LAV(MOD-sp4): 58.9 ml EDV(sp4-el): 67.5 ml LVAs ap4: 10.7 cm2 LVLs ap4: 4.9 cm ESV(MOD-sp4): 20.2 ml ESV(sp4-el): 19.7 ml EF(MOD-sp4): 69.1 % EF(sp4-el): 70.8 % SV(MOD-sp4): 45.2 ml SV(sp4-el): 47.8 ml LA A4 area: 19.8 cm2 LA dimension(2D): 4.0 cm RA A4 area: 15.4 cm2 TAPSE: 2.9 cm Time Measurements MV dec time: 0.44 sec Doppler Measurements & Calculations MV E max torrey: 73.4 cm/sec Lat Peak E' Torrey: 5.7 cm/sec Med Peak E' Torrey: 6.7 cm/sec MV A max torrey: 108.3 cm/sec E/E' lat: 12.8 E/E' med: 10.9 MV E/A: 0.68 MV V2 max: 111.6 cm/sec Ao V2 max: 253.0 cm/sec MV max P.0 mmHg MV dec slope: 199.6 cm/sec2 Ao max P.6 mmHg MV V2 mean: 64.1 cm/sec Ao V2 mean: 167.3 cm/sec MV mean P.9 mmHg Ao mean P.2 mmHg MV V2 VTI: 43.6 cm Ao V2 VTI: 58.2 cm AV (velocity ratio): 0.62 MVA(VTI): 2.7 cm2 JEROD(I,D): 2.0 cm2 JEROD(V,D): 2.0 cm2 AI max torrey: 340.6 cm/sec LV V1 max: 154.2 cm/sec MR max torrey: 424.4 cm/sec AI max P.4 mmHg LV V1 max P.5 mmHg MR max P.1 mmHg LV V1 mean P.4 mmHg AI dec slope: 80.8 cm/sec2 LV V1 mean: 109.9 cm/sec AI P1/2t: 1234 msec LV V1 VTI: 36.1 cm SV(LVOT): 115.9 ml PA V2 max: 100.9 cm/sec TR max torrey: 307.2 cm/sec PA V2 mean: 75.5 cm/sec TR max P.7 mmHg ECHO/Echo Complete Interpretation Summary Normal LV size. Left ventricular systolic function is normal. The estimated ejection fraction is 65 %. Stage 1 diastolic dysfunction. Mild (1+) tricuspid valve insufficiency. Pulmonary artery systolic pressure is 40 mmHg. Ordering Physician: Derrick Potter Referring Physician: Derrick Potter Performed By: Susana Brambila RCS
== END | disposition home or self-care (01) ==
LOC: CVS 12:49
PROVIDERS: PCP Family Medicine; Referring Provider Internal Medicine Cardiovascular Disease; Visit Provider Internal Medicine Cardiovascular Disease
DX: R55 Syncope and collapse (principal)
CPT/HCPCS: 93306

== ENCOUNTER → 2023-07-25 | Outpatient (CLI) | payer MEDICARE, SELFPAY ==
[2023-07-25 12:46] LABS: Anion Gap 9 (5-15); BUN 13 mg/dL (7-18); BUN/Creat Ratio 18.5 RATIO (10-20); Calcium,Total 8.8 mg/dL (8.5-10.1); Chloride 108 mmol/L (98-107); Cholesterol 197 mg/dL (200); EST Glomerular Filtration Rate 85 mL/min (>60); Est Glom Filt Rate - Afr Amer 103 mL/min (>60); Glucose 76 mg/dL (74-106); High Density Lipoprotein 57 mg/dL; Potassium 4.2 mmol/L (3.5-5.1); Sodium Level 146 mmol/L (136-145); Triglycerides 172 mg/dL; Very Low Density Lipoprotein 34 mg/dL (5-40)
== END | disposition home or self-care (01) ==
LOC: MFPLAB 11:07
PROVIDERS: PCP Family Medicine; Visit Provider Family Medicine
DX: Z00.00 Encounter for general adult medical examination without abnormal findings (principal); E78.5 Hyperlipidemia, unspecified; E55.9 Vitamin D deficiency, unspecified
CPT/HCPCS: 36415; 80048; 80061; 82306

== ENCOUNTER 2023-10-02 12:32 | Emergency (ER) | payer MEDICARE, SELFPAY ==
[2023-10-02 12:33] VITALS: BP 208/63; PULSE 65; RESP 18; TEMP 36.4; O2SAT 97; BMI 28.2
[2023-10-02 12:52] VITALS: BP 179/68; PULSE 64; RESP 13; O2SAT 96
--- NOTE | 2023-10-02 13:08 | EKG12_ITS ---
Test Reason : HIGH BP Blood Pressure : / mmHG Vent. Rate : 055 BPM Atrial Rate : 055 BPM P-R Int : 152 ms QRS Dur : 086 ms QT Int : 432 ms P-R-T Axes : 050 021 008 degrees QTc Int : 413 ms Sinus bradycardia Otherwise normal ECG Confirmed by NHI JAVIER, TELMA ([id number]), subeditor CRISSY PARKER ([id number]) on 10/08/2023 10:09:12 AM Referred By: Confirmed By:JACQUE HANKINS MD
--- NOTE | 2023-10-02 13:09 | EDS_ITS ---
HPI History of Present Illness Chief Complaint: Hypertension Detail of Chief Complaint: High blood pressure Informant: patient Narrative Narrative: Patient presents to the emergency department complaint of elevated blood pressures for the last month. Patient states that she has been checking her blood pressure once a week for the last month and it has been in the 170s to 180s systolic. She is not on blood pressure medication. She had an episode where she may have passed out several months ago and was referred to cardiology where she had worn a Holter monitor or an event monitor and then followed up with cardiology. She denies any chest pain or shortness of breath. She has had some intermittent mild headache. Denies recent illness. [facility] Medical History Arthritis Basal cell carcinoma Cancer of skin Chest pain Difficulty balancing Holter monitor, abnormal Hx of fracture of wrist Incontinence Knee pain Melanoma Osteoarthritis Right knee DJD Right knee pain Strain of left knee Syncope Home Medications multivitamin (Daily Multi-Vitamin tablet) 1 tab PO DAILY 10/19/21 [History Last Taken Unknown] [id number] [Citracal Plus] 1 tab PO DAILY 02/15/23 [History Last Taken Unknown] glucosamine HCl 500 mg tablet 500 mg PO DAILY 02/15/23 [History Last Taken Unknown] naproxen 500 mg tablet 250 mg PO BID 02/15/23 [History Last Taken Unknown] vibegron 75 mg tablet (Gemtesa) 75 mg PO DAILY 05/30/23 [History Last Taken Un known] lisinopril 10 mg tablet 10 mg PO DAILY #30 tabs 10/02/23 [Rx Last Taken Unknown] Allergy/AdvReac Type Severity Reaction Status Date / Time ampicillin Allergy Unknown unknown Verified 10/02/23 12:33 amoxicillin Allergy Rash Verified 10/02/23 12:33 Family History (Reviewed 08/29/23 @ 13:28 by Effie Vera DRILLING FIELD OPERATOR, DRILLING FIELD OPERATOR-C) Mother Hypertension Heart disease Cancer Melanoma Father Emphysema of lung Grandmother Diabetes Grandfather Myocardial infarction Brother Melanoma Other Right knee DJD Surgical History History of cataract extraction History of dilatation and curettage Social History Smoking Status: Never smoker alcohol intake: never substance use type: does not use caffeine: Yes (Occasionally) ROS ROS ED Review of Systems ROS Unobtainable: other Constitutional Constitutional ED: Reports lethargy; Denies chills, fever(s), sweats or weight loss Eyes Eyes: Denies blurry vision, change in vision or diplopia ENT ENT ED: Denies rhinorrhea or sore throat Cardiovascular Cardiovascular: Denies chest pain, orthopnea or racing heartbeat Respiratory/Chest Respiratory/Chest: Denies cough, dyspnea, dyspnea on exertion, orthopnea or sputum Gastrointestinal Gastrointestinal: Denies abdominal pain, diarrhea, nausea or vomiting Genitourinary Genitourinary ED: Denies dysuria, hematuria or urinary frequency Musculoskeletal Musculoskeletal: Denies arthralgias, back pain, myalgias or neck pain Integumentary Denies abscess, Abrasions or rash Neurologic Neurologic: Reports headache(s); Denies weakness Psychiatric Psychiatric: Denies anxiety, depression or suicidal thoughts Endocrine Endocrinology: Denies polydipsia, polyphagia or polyuria Hematologic/Lymphatic Hematologic/Lymphatic: Denies easy bleeding, easy bruising or lymphadenopathy Allergic/Immunologic Allergic/Immunologic ED: Denies mouth swelling, tongue swelling or urticaria EXAM Physical Exam Const Vital Signs: 10/02/23 12:33 10/02/23 12:52 10/02/23 12:52 Temperature 97.6 F L Temperature Source Temporal Pulse Rate 65 64 Respiratory Rate 18 13 Respiratory Effort Normal Non-Labored Respiratory Pattern Normal Blood Pressure 208/63 H 179/68 H Blood Pressure Mean 111 105 Pulse Ox 97 96 Oxygen Delivery Method Room Air Room Air 10/02/23 14:52 Temperature 97.4 F L Temperature Source Pulse Rate 79 Respiratory Rate 22 H Respiratory Effort Respiratory Pattern Blood Pressure 177/65 H Blood Pressure Mean 102 Pulse Ox 100 Oxygen Delivery Method Positive well nourished and well developed General Appearance ED: well developed and NAD HEENT Reports TM's clear and moist mucous membranes normocephalic and atraumatic; Negative for trauma or tenderness Tympanic Membrane ED: Yes TM's clear Eyes PERRL and EOMs intact bilaterally General Eye ED: Negative for pale conjunctiva or scleral icterus Neck no lymphadenopathy, supple and no JVD General: Negative for tenderness Chest Wall inspection of chest normal and palpation of chest normal Chest: Negative for tenderness Resp normal respiratory effort and clear to auscultation bilaterally Effort and Inspection: Negative for respiratory distress or pain with movement Auscultation: Negative for rhonchi, wheezes or diminished lung sounds Cardio regular rate, regular rhythm, S1 normal heart sound, S2 normal heart sound and no murmurs Peripheral Pulses: pulses 2+ throughout GI normal to inspection, nondistended, normoactive bowel sounds, soft to palpation, non-tender, non-distended and no masses Back/Spine no CVA tenderness and no thoracic nor lumbar tenderness Extremity normal to inspection General Extremety ED: Negative for edema General Extremity: Negative for edema Neuro oriented x3, CN's II-XII intact bilaterally, no sensory deficits noted and gait normal Sensorium / Orientation: awake, alert, oriented to person, oriented to place and oriented to time Motor Exam: strength 5/5 throughout and strength abnormal Psych mental status grossly normal Skin no rashes or lesions noted and no wounds MDM MDM MDM Narrative Medical decision making narrative: Patient presents with ongoing hypertension currently not medicated. Relatively asymptomatic. Workup in the emergency department included EKG which showed a sinus rhythm with rate of 55 bpm with no acute ST segment changes. CBC with differential was unremarkable. Chemistries unremarkable. BUN 13 and creatinine 0.68. Urinalysis was normal. While monitoring the patient in the department and her systolics remained around 170s to 180s. Discussed case with patient's primary care physician Dr. Rey Hussein who recommended starting patient on lisinopril 10 mg daily and follow-up with his office in 1 week. Patient comfortable with plan. Patient's daughter also in the room who voices understanding and comfort with plan going forward. Lab Data Attestation: I reviewed the patient's lab results. Labs: Laboratory Results - last 24 hr 10/02/23 10/02/23 13:15 14:10 WBC 4.9 RBC 5.01 Hgb 14.4 Hct 43.7 MCV 87.2 MCH 28.7 MCHC 33.0 RDW Std Deviation 42.5 RDW Coeff of Cliff 13.3 Plt Count 200 MPV 11.3 Immature Gran % (Auto) 0.400 Neut % (Auto) 64.2 Lymph % (Auto) 23.3 [place] % (Auto) 9.1 Eos % (Auto) 2.0 Baso % (Auto) 1.0 Absolute Neuts (auto) 3.2 Absolute Lymphs (auto) 1.15 Nucleated RBC % 0 Sodium 142 Potassium 4.2 Chloride 110 H Carbon Dioxide 29.0 Anion Gap 3 L BUN 13 Creatinine 0.68 Estim Creat Clear Calc 52.93 Est GFR (MDRD) Af Amer 107 Est GFR (MDRD) Non-Af 89 BUN/Creatinine Ratio 19.2 Glucose 97 Calcium 9.5 Troponin I High Sens 8 Urine Color Straw Urine Clarity Clear Urine pH 7.0 Ur Specific Velva 1.010 Urine Protein Negative Urine Glucose (UA) Normal Urine Ketones Negative Urine Occult Blood Negative Urine Nitrite Negative Urine Bilirubin Negative Urine Urobilinogen Normal Ur Leukocyte Esterase Negative Urine RBC 0 SEEN Urine WBC 0 SEEN Ur Squamous Epith Cells 0 SEEN Urine Bacteria 0 SEEN Urine Mucus 0 SEEN Discharge Plan Triage Chief Complaint: Hypertension ED Provider: Prashant Rodrigues Dx/Rx/DC Orders Clinical Impression: Hypertension Instructions: ED Hypertension, Established Prescriptions: New lisinopril 10 mg tablet 10 mg PO DAILY Qty: 30 0RF No Action multivitamin [Daily Multi-Vitamin] Tablet 1 tab PO DAILY naproxen 500 mg tablet 250 mg PO BID Patient Comments: take 1/2 tablet by mouth twice a day [id number] [Citracal Plus] 1 tab PO DAILY glucosamine HCl 500 mg tablet 500 mg PO DAILY Rx Instructions: administer with a meal Gemtesa 75 mg tablet 75 mg PO DAILY Primary Care Provider: Rey Hussein Referrals: Rey Hussein MD [Primary Care Provider] - 5-7 Days Disposition Disposition: Home, Self Care Discharge Date/Time: 10/02/23 14:53
[2023-10-02 13:25] LABS: Absolute Lymphocyte Count 1.15 X10^3/uL (0.83-4.51); Absolute Neutrophil Count 3.2 X10^3/uL (2.0-7.7); Basophil# 0.05 X10^3/uL; Hematocrit 43.7 % (37-47); Hemoglobin 14.4 g/dL (12.0-15.0); Lymphocyte # 1.15 X10^3/ul (0.83-4.51); Lymphocyte % 23.3 % (19-41); Mean Corpuscular Hgb 28.7 pg (27.0-32.0); Mean Corpuscular Volume 87.2 fL (81-99); Mean Platelet Vol. 11.3 fl (6.2-12.0); Monocyte# 0.45 X10^3/uL; Monocyte% 9.1 % (0-10); NRBC Flagged by Analyzer 0 % (0-5); Neutrophil # 3.17 X10^3/uL (2.7-7.7); Neutrophil % 64.2 % (47-70); Platelet Count 200 K/mm3 (150-450); RBC Distribution Width CV 13.3 % (11.6-14.6); RBC Distribution Width SD 42.5 fl (35.1-43.9); Red Blood Count 5.01 M/mm3 (4.2-5.4); White Blood Count 4.9 K/mm3 (4.4-11.0)
[2023-10-02 13:47] LABS: Anion Gap 3 (5-15); BUN 13 mg/dL (7-18); BUN/Creat Ratio 19.2 RATIO (10-20); Calcium,Total 9.5 mg/dL (8.5-10.1); Chloride 110 mmol/L (98-107); Creatinine, Serum 0.68 mg/dL (0.55-1.02); EST Glomerular Filtration Rate 89 mL/min (>60); Est Glom Filt Rate - Afr Amer 107 mL/min (>60); Estimated Creatinine Clearance 52.93 ml/min; Glucose 97 mg/dL (74-106); Potassium 4.2 mmol/L (3.5-5.1); Sodium Level 142 mmol/L (136-145); Troponin-I HS 8 pg/mL (3.0-54.0)
[2023-10-02 14:23] LABS: Bacteria 0 SEEN /hpf (None Seen); Mucous, Urine 0 SEEN /hpf (<or=2+); Red Blood Cells-Urine 0 SEEN /hpf (0-5); Squamous Epithelial Cells - UA 0 SEEN /hpf (5-10); White Blood Cells 0 SEEN /hpf (0-5)
[2023-10-02 14:28] LABS: Color, Urine Straw (Yellow); Glucose, Dipstick Normal (Normal); Ketone-Dipstick Negative (Negative); Leukocyte Esterase-Dipstick Negative /ul (Negative); Nitrite-Dipstick Negative (Negative); Occult Blood-Urine Negative /ul (Negative); Protein-Dipstick Negative (Negative); Urine Bilirubin Dipstick Negative (Negative); Urine Clarity Clear (Clear); Urine Urobilinogen Normal (Normal)
[2023-10-02] MEDS: Lisinopril 10 MG Tablet PO (14:46)
[2023-10-02 14:52] VITALS: BP 177/65; PULSE 79; RESP 22; TEMP 36.3; O2SAT 100
== END 2023-10-02 14:53 | disposition home or self-care (01) ==
PROVIDERS: Emergency Provider Emergency Medicine; PCP Family Medicine; Visit Provider Emergency Medicine
DX: I10 Essential (primary) hypertension (principal); R51.9 Headache, unspecified; Z79.899 Other long term (current) drug therapy
CPT/HCPCS: 80048; 81001; 84484; 85025; 93005; 99284; A4216

== ENCOUNTER → 2023-11-14 | Outpatient (CLI) | payer MEDICARE, SELFPAY ==
[2023-11-14 17:48] LABS: Absolute Lymphocyte Count 1.51 X10^3/uL (0.83-4.51); Absolute Neutrophil Count 3.5 X10^3/uL (2.0-7.7); Basophil# 0.04 X10^3/uL; Basophil% 0.7 % (0-1); Eosinophil# 0.18 X10^3/uL; Eosinophils% 3.1 % (0-5); Hematocrit 44.4 % (37-47); Hemoglobin 14.6 g/dL (12.0-15.0); Lymphocyte # 1.51 X10^3/ul (0.83-4.51); Lymphocyte % 25.9 % (19-41); Mean Corp Hgb Conc 32.9 g/dL (32-36); Mean Corpuscular Hgb 29.2 pg (27.0-32.0); Mean Corpuscular Volume 88.8 fL (81-99); Mean Platelet Vol. 11.7 fl (6.2-12.0); Monocyte# 0.62 X10^3/uL; Monocyte% 10.7 % (0-10); NRBC Flagged by Analyzer 0 % (0-5); Neutrophil # 3.46 X10^3/uL (2.7-7.7); Neutrophil % 59.4 % (47-70); Platelet Count 203 K/mm3 (150-450); RBC Distribution Width CV 13.2 % (11.6-14.6); White Blood Count 5.8 K/mm3 (4.4-11.0)
[2023-11-14 18:19] LABS: ALB/GLOB Ratio 1.2 RATIO (0.9-2.4); AST(SGOT) 18 U/L (15-37); Alanine Aminotransfer ALT/SGPT 25 U/L (13-56); Alkaline Phosphatase 70 U/L (45-117); Anion Gap 5 (5-15); BUN 22 mg/dL (7-18); BUN/Creat Ratio 21.8 RATIO (10-20); Calcium,Total 9.2 mg/dL (8.5-10.1); Chloride 104 mmol/L (98-107); Creatinine, Serum 1.01 mg/dL (0.55-1.02); EST Glomerular Filtration Rate 56 mL/min (>60); Est Glom Filt Rate - Afr Amer 68 mL/min (>60); Globulin 3.2 g/dL (2.2-4.2); Glucose 121 mg/dL (74-106); Potassium 3.8 mmol/L (3.5-5.1); Protein, Total 7.2 g/dL (6.4-8.2); Sodium Level 138 mmol/L (136-145)
== END | disposition home or self-care (01) ==
LOC: MFPLAB 14:18
PROVIDERS: PCP Family Medicine; Visit Provider Family Medicine
DX: R23.2 Flushing (principal); R61 Generalized hyperhidrosis
CPT/HCPCS: 36415; 80053; 85025

== ENCOUNTER → 2024-01-11 | Outpatient (CLI) | payer MEDICARE, SELFPAY ==
[2024-01-11 11:15] LABS: ALB/GLOB Ratio 1.2 RATIO (0.9-2.4); AST(SGOT) 14 U/L (15-37); Alanine Aminotransfer ALT/SGPT 20 U/L (13-56); Albumin, Serum 3.6 g/dL (3.2-5.0); Alkaline Phosphatase 67 U/L (45-117); Anion Gap 6 (5-15); BUN 20 mg/dL (7-18); Chloride 107 mmol/L (98-107); Cholesterol 172 mg/dL (200); Creatinine, Serum 0.91 mg/dL (0.55-1.02); EST Glomerular Filtration Rate 63 mL/min (>60); Est Glom Filt Rate - Afr Amer 76 mL/min (>60); Globulin 3.1 g/dL (2.2-4.2); Glucose 94 mg/dL (74-106); High Density Lipoprotein 50 mg/dL; Potassium 4.3 mmol/L (3.5-5.1); Protein, Total 6.7 g/dL (6.4-8.2); Sodium Level 141 mmol/L (136-145); Triglycerides 90 mg/dL; Very Low Density Lipoprotein 18 mg/dL (5-40)
== END | disposition home or self-care (01) ==
LOC: MFPLAB 08:43
PROVIDERS: PCP Family Medicine; Visit Provider Family Medicine
DX: I10 Essential (primary) hypertension (principal)
CPT/HCPCS: 36415; 80053; 80061

== ENCOUNTER → 2024-07-11 | Outpatient (CLI) | payer MEDICARE, SELFPAY ==
[2024-07-11 10:20] LABS: Anion Gap 7 (5-15); BUN 17 mg/dL (7-18); BUN/Creat Ratio 19.4 RATIO (10-20); Calcium,Total 9.7 mg/dL (8.5-10.1); Chloride 108 mmol/L (98-107); Cholesterol 191 mg/dL (200); Creatinine, Serum 0.88 mg/dL (0.55-1.02); EST Glomerular Filtration Rate 66 mL/min (>60); Est Glom Filt Rate - Afr Amer 79 mL/min (>60); Glucose 99 mg/dL (74-106); High Density Lipoprotein 53 mg/dL; Potassium 3.8 mmol/L (3.5-5.1); Sodium Level 142 mmol/L (136-145); Triglycerides 110 mg/dL; Very Low Density Lipoprotein 22 mg/dL (5-40)
== END | disposition home or self-care (01) ==
LOC: MFPLAB 08:27
PROVIDERS: PCP Family Medicine; Referring Provider Family Medicine; Visit Provider Family Medicine
DX: E78.5 Hyperlipidemia, unspecified (principal); I10 Essential (primary) hypertension
CPT/HCPCS: 36415; 80048; 80061

== ENCOUNTER → 2025-01-09 | Outpatient (CLI) | payer MEDICARE, SELFPAY ==
[2025-01-09 10:43] LABS: Anion Gap 10 (5-15); BUN 20 mg/dL (4-19); Calcium,Total 9.1 mg/dL (7.6-11.0); Carbon Dioxide 26.3 mmol/L (21.0-32.0); Chloride 106 mmol/L (98-108); Cholesterol 185 mg/dL (<=200); Creatinine, Serum 0.85 mg/dL (0.70-1.20); EST Glomerular Filtration Rate 69 (>60); Glucose 102 mg/dL (70-99); High Density Lipoprotein 49 mg/dL; Low Density Lipoprotein Calc. 118 mg/dL; Potassium 4.6 mmol/L (3.3-5.1); Sodium Level 142 mmol/L (133-145); Triglycerides 89 mg/dL; Very Low Density Lipoprotein 18 mg/dL (5-40); cholesterol:hdl ratio screen 3.74
== END | disposition home or self-care (01) ==
LOC: MFPLAB 08:39
PROVIDERS: PCP Family Medicine; Referring Provider Family Medicine; Visit Provider Family Medicine
DX: I10 Essential (primary) hypertension (principal)
CPT/HCPCS: 36415; 80048; 80061

== ENCOUNTER 2025-04-30 07:51 | Day surgery (SDC) | payer MEDICARE, SELFPAY ==
--- NOTE | 2025-04-16 20:53 | PAT.ANE_ITS ---
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 When Was Last Pacemaker Check QUESTION #4 FULL TEXT: You/Your Family Experience fever (hyperthermia) with Anesthesia Last Oral Intake Last Oral intake: Last Oral Intake NPO since Meds taken in AM with sips of water? 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 benefits claims taker: PONV - unemployment benefits claims taker Female Yes 04/16/25 08:12 HX of Motion Sickness No 04/16/25 08:12 HX of N/V After Surgery No 04/16/25 08:12 Non-Smoker Yes 04/16/25 08:12 Duration of Surgery greater Yes 04/16/25 08:12 than 60 minutes Number of Risk Factors 3 04/16/25 08:12 PONV Score Moderate Risk 04/16/25 08:12 Height & Weight Height & Weight: Anesthesia: Height & Weight Height 5 ft 4 in 03/27/25 12:34 Respiratory Assessment Respiratory Assessment - unemployment benefits claims taker: Respiratory Tract Infection Hx - 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 Has anyone observed you stop No 04/16/25 08:12 breathing during sleep? STOP Results Negative 04/16/25 08:12 QUESTION #5 FULL TEXT : Do you snore loudly (louder than talking or can be heard through closed doors)? 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 Specify any problems Hx of Preganancy in last 3 No 04/16/25 08:12 Months Nurse Filling Out Transfusion MGDEBI 04/16/25 08:12 & Questions: Date: 04/16/25 04/16/25 08:12 Time: 08:15 04/16/25 08:12 Patient unable to answer at this time (ie. 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: /Reproductive Hx- unemployment benefits claims taker Hx Now No 04/16/25 08:12 Gestational Age (in weeks): EDC: Hx Hx Para Hx Section SAB No 04/16/25 08:12 [facility] Medical History (Updated 04/16/25 @ 08:23 by Roseanna London) Wears glasses Ambulates with cane OAB (overactive bladder) Non-smoker Hypertension History of stress test History of echocardiogram Cardiology follow-up encounter Right inguinal hernia Osteoarthritis of right knee Holter monitor, abnormal Syncope Strain of left knee Difficulty balancing Incontinence Knee pain Cancer of skin Arthritis Hx of fracture of wrist Right knee DJD Right knee pain Melanoma Basal cell carcinoma Chest pain Osteoarthritis Home Medications ?Medication ?Instructions ?Recorded ?Last Taken ?Type multivitamin (Daily Multi-Vitamin 1 tab PO DAILY 10/19 Unknown History tablet) [id number] 1 tab PO DAILY 02/15/23 Unknown History [Citracal Plus] glucosamine HCl 500 mg tablet 500 mg PO DAILY 02/15/23 Unknown History vibegron 75 mg tablet (Gemtesa) 75 mg PO DAILY 3 Unknown History lisinopril 10 mg tablet 10 mg PO DAILY #30 tabs 09/07 02/26 Unknown Rx metoprolol succinate 25 mg 25 mg PO QDAY 10/09/24 Unkn own History tablet,extended release 24 hr naproxen 500 mg tablet 250 mg PO BID PRN pain 10/09 Unknown History amlodipine 5 mg tablet 5 mg PO DAILY 04/16/25 Unkno wn History Allergy/AdvReac Type Severity Reaction Status Date / Time ampicillin Allergy Unknown unknown Verified 04/16/25 08:07 amoxicillin Allergy Rash Verified 04/16/25 08:07 Family History Mother Hypertension Heart disease Cancer Melanoma Father Emphysema of lung Grandmother Diabetes Grandfather Myocardial infarction Brother Melanoma Other Right knee DJD Surgical History (Updated 04/16/25 @ 08:12 by Roseanna London) History of colonoscopy History of total right knee replacement (~04/2024) History of dilatation and curettage History of cataract extraction Social History Smoking Status: Never smoker alcohol intake: never substance use type: does not use caffeine: Yes (Occasionally) Audit: Pertinent Findings Pertinent Findings EKG Perinent findings: 10/09/2024. Sinus bradycardia at 50 bpm. EKG within normal limits. Stress test pertinent findings: 09/29/2019. EF at rest is 65%. Increases to 75% with stress. Negative for ischemia by EKG and echogenic criteria. Echo (EF%) pertinent findings: March 07, 2023. EF of 65%. PASP is 40 mmHg. No aortic stenosis noted. Consult pertinent findings: 10/09/2024. Rosi MAMMALOGIST-C. 1. Aortic stenosis-patient appears to have a murmur consistent with aortic stenosis. However last echo from 03/07/2023 demonstrates normal aortic valve. Continue to monitor. 2. Syncope-this is by history. No recent symptoms or events. Continue to monitor. 3. Bradycardia-both EKG and most recent 7-day monitor showed bradycardia. She denies associated symptoms. Decrease in metoprolol dose was discussed however the patient feels well and does not want to change the dose at this time. Continue to monitor symptoms. Additional pertinent findings: 7-day monitor. 12/27/2022. Predominant rhythm is sinus bradycardia. Atrial tachycardia occurred 37 times. Longest being 23 beats. PAC burden is 0.3%. PVC burden is 0.1%. Recommendation Anesthesia Recommendation Anesthesia recommendation: OPTIMIZED for anesthesia
[2025-04-30] VITALS (12 sets, daily range): BP systolic 108–136; BP diastolic 51–58; PULSE 47–69; RESP 16–20; TEMP 36.3–36.7; O2SAT 92–97; BMI 27.0
[2025-04-30] MEDS: Lactated Ringers 1,000 ML 15 ML IV (08:25)
--- NOTE | 2025-04-30 08:44 | PCM.PRE.AN2 ---
ASA Classification* ASA Classification ASA Classification: 2 Assessment & Plan Anesthesia* Anesthesia Assessment Anesthesia Assessment: Discussed sedation and/or anesthesia options, risks, benefits, and alternatives with patient/parents/legal guardian/POA. Questions invited. The patient/parents/legal guardian/POA seems to understand and agrees to proceed with anesthesia plan. Reviewed the physical assessment, medical history, allergy history and patient home medications list prior to surgery/procedure/anesthetic and documented any changes. Performed airway and anesthesia risk assessments. Anesthesia Type Anesthesia Type: General History Source History Obtained from:: Patient and Chart Anesthesia Focused Assessment* Temperature: 97.6 F Pulse Rate: 47 Blood Pressure: 118/56 Respiratory Rate: 16 Pulse Ox: 97 Oxygen Delivery Method: Room Air Airway Assessment Mouth opens: >3 cm Mallampati Score: III Teeth Condition: Intact Neck Range of motion (ROM): Limited ROM Labs Anesthesia Preop lab: CBC WBC, (4.4-11.0) 5.8 K/mm3 11/14/23, 14:18 RBC, (4.2-5.4) 5.00 M/mm3 11/14/23, 14:18 Hgb, (12.0-15.0) 14.6 g/dL 11/14/23, 14:18 Hct, (37-47) 44.4 % 11/14/23, 14:18 Plt Count, (150-450) 203 K/mm3 11/14/23, 14:18 CHEMISTRY Potassium, (3.3-5.1) 4.6 mmol/L 01/09/25, 08:39 Sodium, (133-145) 142 mmol/L 01/09/25, 08:39 BUN, (4-19) 20 mg/dL H 01/09/25, 08:39 Creatinine, (0.70-1.20) 0.85 mg/dL 01/09/25, 08:39 Glucose, (70-99) 102 mg/dL H 01/09/25, 08:39 TSH, (0.358-3.74) 3.54 uIU/mL 04/23/15, 07:42 COAG Pre-Assessment Diagnosis/Proposed Procedure Planned Operative Procedure(s): (R) Lap Robotic Right poss bilateral Inguinal Hernia w/mesh Anesthesia History 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 When Was Last Pacemaker Check QUESTION #4 FULL TEXT: You/Your Family Experience fever (hyperthermia) with Anesthesia Any additional information?: No Last Oral Intake Last Oral intake: Last Oral Intake NPO since 21:30 04/30/25 08:21 Meds taken in AM with sips of Yes 04/30/25 08:21 water? 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 Female Yes 04/16/25 08:12 HX of Motion Sickness No 04/16/25 08:12 HX of N/V After Surgery No 04/16/25 08:12 Non-Smoker Yes 04/16/25 08:12 Duration of Surgery greater Yes 04/16/25 08:12 than 60 minutes Number of Risk Factors 3 04/16/25 08:12 PONV Score Moderate Risk 04/16/25 08:12 Any additional information?: No Height & Weight Height & Weight: Anesthesia: Height & Weight Height 5 ft 4 in 04/30/25 08:21 Weight: 71.4 kg 04/30/25 08:21 Body Mass Index (BMI) 27.0 04/30/25 08:21 Respiratory Assessment Respiratory Assessment - 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 Has anyone observed you stop No 04/16/25 08:12 breathing during sleep? STOP Results Negative 04/16/25 08:12 QUESTION #5 FULL TEXT : Do you snore loudly (louder than talking or can be heard through closed doors)? 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 Specify any problems Hx of Preganancy in last 3 No 04/16/25 08:12 Months Nurse Filling Out Transfusion MGRIFFITH 04/16/25 08:12 & Questions: Date: 04/16/25 04/16/25 08:12 Time: 08:15 04/16/25 08:12 Patient unable to answer at this time (ie. 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: /Reproductive Hx- dredge pipe installer Hx Now No 04/16/25 08:12 Gestational Age (in weeks): EDC: Hx Hx Para Hx Section SAB No 04/16/25 08:12 Any additional information?: No Active Medications Active Medications: Current Medications Generic Name Dose Route Start Last Admin Trade Name Freq PRN Reason Stop Dose Admin Clindamycin Phosphate 900 mg in 50 mls @ 75 mls/hr 04/30/25 09:45 Cleocin IV 04/30/25 10:24 INTRAOP ONE Lactated Ringer's 1,000 mls @ 15 mls/hr 04/30/25 08:15 04/30/25 08:25 IV 15 mls/hr .Q48H SILVIA Administration PFSH Medical History (Updated 04/16/25 @ 08:23 by Roseanna London) Wears glasses Ambulates with cane OAB (overactive bladder) Non-smoker Hypertension History of stress test History of echocardiogram Cardiology follow-up encounter Right inguinal hernia Osteoarthritis of right knee Holter monitor, abnormal Syncope Strain of left knee Difficulty balancing Incontinence Knee pain Cancer of skin Arthritis Hx of fracture of wrist Right knee DJD Right knee pain Melanoma Basal cell carcinoma Chest pain Osteoarthritis Home Medications ?Medication ?Instructions ?Recorded ?Last Taken ?Type multivitamin (Daily Multi-Vitamin 1 tab PO DAILY 10/19/21 Unknown History tablet) [id number]-vhs-[id number] [id number] 1 tab PO DAILY 02/15/23 Unknown History [Citracal Plus] glucosamine HCl 500 mg tablet 500 mg PO DAILY 02/15/23 Unknown History vibegron 75 mg tablet (Gemtesa) 75 mg PO DAILY 05/30/23 Unknown History lisinopril 10 mg tablet 10 mg PO DAILY #30 tabs 10/02/23 Unknown Rx metoprolol succinate 25 mg 25 mg PO QDAY 10/09/24 04/30/25 History tablet,extended release 24 hr naproxen 500 mg tablet 250 mg PO BID PRN pain 10/09/24 Unknown History amlodipine 5 mg tablet 5 mg PO DAILY 04/16/25 04/30/25 History Allergy/AdvReac Type Severity Reaction Status Date / Time ampicillin Allergy Unknown unknown Verified 04/30/25 08:19 amoxicillin Allergy Rash Verified 04/30/25 08:19 Family History Mother Hypertension Heart disease Cancer Melanoma Father Emphysema of lung Grandmother Diabetes Grandfather Myocardial infarction Brother Melanoma Other Right knee DJD Surgical History (Updated 04/16/25 @ 08:12 by Roseanna London) History of colonoscopy History of total right knee replacement (~04/2024) History of dilatation and curettage History of cataract extraction Social History Smoking Status: Never smoker alcohol intake: never substance use type: does not use caffeine: Yes (Occasionally) Review of Systems (Anesthesia) ROS Narrative System reviewed and no additional complaints, except as documented.
--- NOTE | 2025-04-30 08:46 | PCM.HP.STD ---
HPI - General General Date of Service: 04/30/25 HPI Narrative MOHINI CAMPOS, is a 84 F who presents for robotic right inguinal hernia repair possible bilateral. Patient denies any changes since her office visit. Did have her Mohs surgery about a week ago for her nose. Office visit 03/27/2025 HPI HPI: 84-year-old female presents due to a right inguinal hernia. Patient states her PCP noted about a year ago. Patient had a last 2 to 3 months she does notice a bulge there denies any pain. Patient is interested in having it repaired. Patient currently does have a Mohs surgery for the left side of her nose on April 22 and also has a melanoma on the back of her neck but will be evaluated at that time as well. Patient would prefer surgery after the Mohs surgery. [facility] Medical History (Updated 04/16/25 @ 08:23 by Roseanna London) Wears glasses Ambulates with cane OAB (overactive bladder) Non-smoker Hypertension History of stress test History of echocardiogram Cardiology follow-up encounter Right inguinal hernia Osteoarthritis of right knee Holter monitor, abnormal Syncope Strain of left knee Difficulty balancing Incontinence Knee pain Cancer of skin Arthritis Hx of fracture of wrist Right knee DJD Right knee pain Melanoma Basal cell carcinoma Chest pain Osteoarthritis Home Medications ?Medication ?Instructions ?Recorded ?Last Taken ?Type multivitamin (Daily Multi-Vitamin 1 tab PO DAILY 10/19/21 Unknown History tablet) [id number] 1 tab PO DAILY 02/15/23 Unknown History [Citracal Plus] glucosamine HCl 500 mg tablet 500 mg PO DAILY 02/15/23 Unknown History vibegron 75 mg tablet (Gemtesa) 75 mg PO DAILY 05/30/23 Unknown History lisinopril 10 mg tablet 10 mg PO DAILY #30 tabs 10/02/23 Unknown Rx metoprolol succinate 25 mg 25 mg PO QDAY 10/09/24 04/30/25 History tablet,extended release 24 hr naproxen 500 mg tablet 250 mg PO BID PRN pain 10/09/24 Unknown History amlodipine 5 mg tablet 5 mg PO DAILY 04/16/25 04/30/25 History Allergy/AdvReac Type Severity Reaction Status Date / Time ampicillin Allergy Unknown unknown Verified 04/30/25 08:19 amoxicillin Allergy Rash Verified 04/30/25 08:19 Family History Mother Hypertension Heart disease Cancer Melanoma Father Emphysema of lung Grandmother Diabetes Grandfather Myocardial infarction Brother Melanoma Other Right knee DJD Surgical History (Updated 04/16/25 @ 08:12 by Roseanna London) History of colonoscopy History of total right knee replacement (~04/2024) History of dilatation and curettage History of cataract extraction Social History Smoking Status: Never smoker alcohol intake: never substance use type: does not use caffeine: Yes (Occasionally) Vital Signs Vital Signs Vital Signs: 04/30/25 08:21 04/30/25 08:21 Temperature 97.6 F L Temperature Source Temporal Pulse Rate 47 L Respiratory Rate 16 Respiratory Pattern Normal Blood Pressure 118/56 L Blood Pressure Mean 76 Blood Pressure Source Monitor Blood Pressure Position Semi-Fowlers Blood Pressure Location Left Arm Pulse Ox 97 Oxygen Delivery Method Room Air Weight Weight: 157 lb 6.561 oz Body Mass Index (BMI) 27.0 Physical Exam Const alert, oriented x3 and no apparent distress HEENT normocephalic and head/scalp atraumatic Resp normal respiratory effort Cardio regular rate GI soft to palpation and non-tender; Negative for non-distended GI Narrative: Right inguinal hernia reducible. Palpation: Negative for guarding Extremity no clubbing, cyanosis or edema Skin no rashes or lesions noted Neuro CN's II-XII intact bilaterally Psych mental status grossly normal Assessment & Plan Assessment/Plan (1) Right inguinal hernia: PLAN: Plan Plan to do robotic right inguinal hernia repair with mesh, possible bilateral. Reviewed the procedure with the patient including the risks, including but not limited to infection, bleeding, paresthesia, chronic pain, injury to small bowel, ligation of the round ligament, and recurrence. All questions were answered. Inge Ryan M.D. Pager: [phone] [facility] [address] [place] [address], [address] [place] [id number] Office: [phone]
[2025-04-30] MEDS: Lidocaine 1% (5 ml sdv) 5 ML Vial IV (09:31)
[2025-04-30] MEDS: fentaNYL 100 MCG/2 ML Ampul IV (09:53)
[2025-04-30] MEDS: Lactated Ringers 2,000 ML 2000 ML IV (10:26)
--- NOTE | 2025-04-30 11:03 | PCM.OPRPT ---
Operative Report (Standard) Operative Information Date of Procedure: 04/30/25 Pre-Operative Diagnosis: Right inguinal hernia Post-Operative Diagnosis: Bilateral indirect inguinal hernias Surgery/Procedure Performed: Robotic bilateral inguinal hernia pair with mesh glue bone crusher: Yes Applied Behavior Specialist: Lavern Perdue Tasks completed by list of first job ideas: Opening & closing Type of Anesthesia: General/Supplemental RN Documented Start/Stop Times: Operation Date: 04/30/25 09:45 Case Time Into Pre-Op 04/30/25 08:01 Out of Pre-Op 04/30/25 09:22 Anesthesia Start 04/30/25 09:25 Into Room 04/30/25 09:25 Procedure Start 04/30/25 09:49 Procedure End 04/30/25 11:12 Anesthesia End 04/30/25 11:17 Out of Room 04/30/25 11:17 Into Recovery 04/30/25 11:19 Out of Recovery 04/30/25 12:19 Into Phase II Recovery 04/30/25 12:20 Out of Phase II 04/30/25 17:32 Procedure Start Time: 09:49 Procedure Stop Time: 11:12 Select all DRAINS/GRAFTS/IMPLANTS that apply: Prosthetic device Prosthetic device details: ProGrip mesh bilaterally [Lot [id number], [id number]] Special Medications: Clindamycin 900 mg IV x 1 Estimated Blood Loss: < 10 cc Specimen collected: No Description of surgery: Indications: 84-year-old female presented with right inguinal hernia. Robotic right inguinal hernia pair with mesh, possible bilateral elected patient was agreeable. Description of procedure: Patient was brought to operating room placed supine operative table. Timeout was completed verifying correct patient, procedure, site, positioning, special, prior to beginning procedure. General anesthesia was induced. Patient's arms were tucked and padded appropriately. Visiport was used to make the incision at Delvalle's point in the left upper quadrant. Entry into the abdomen was confirmed visually. Laparoscope was placed. Verifying no injury during initial trocar placement. Patient was placed in Trendelenburg position. Two 8 mm trochars were placed along the horizontal line in the midline and in the right upper quadrant. The initial 5 mm trocar was upsized to an 8 mm well under direct visualization. Both the inguinal regions were inspected and left indirect and right direct hernias were seen. Both procedures done similarly. The median umbilical ligament was divided sharply with electrocautery. Peritoneum was incised with the endoscopic scissors along a line 2 cm above the superior edge of the hernia defect extending from the median umbilical ligament to anterior superior iliac spine. Peritoneal flap was mobilized inferiorly using blunt and sharp/cautery dissection. The inferior epigastric vessels were exposed and symphysis pubis and identified. The indirect hernia sac was inverted and dissected. Round ligament was ligated using electrocautery. A ProGrip mesh were used for left and right. The mesh was rolled longitudinally into a compact cylinder and passed through the trocar. The cylinder was placed along the inferior aspect of the working space and unrolled into place to completely cover the direct, indirect and femoral spaces. The mesh was secured in place medially to Carl's ligament using the 3-0 Vicryl suture. Care was taken to avoid the inferolateral triangle containing iliac vessels and genital nerves. The peritoneal flap was closed over mesh and secured with 3-0 V-Loc suture. After ensuring adequate hemostasis, the trochars were removed and pneumoperitoneum allowed to escape. The skin was closed with 4-0 Monocryl interrupted sutures and Steri-Strips. Patient's testicles are also confirmed in the scrotum bilaterally. Patient tolerated procedure well was taken to the postanesthesia care unit in stable condition. Surgical Findings: See operative report Complications Complications: No
--- NOTE | 2025-04-30 11:06 | DCINST_ITS ---
Discharge Instructions Diet Discharge Diet: Light diet - advance as tolerated Activity Discharge Activity: May Not Drive (while taking narcotic pain medications.) May shower in (days): 1 Lifting Restrictions: no lifting >20 lbs x 2 wks, no strenuous exercise for 4 wks Dressing / Incision Call your doctor if your incision/area has: Continuous Slow Oozing, Sudden Increased Bleeding, Increased Pain/ Swelling, Increased Redness, Foul Smelling Discharge and Swelling at the incision site Call your doctor if you observe: Fever of 101 or Higher Remove Dressing in: 2 days Cleanse incision/area with: Soap & Water Additional Dressing/Incision Instructions:: Steri-Strips will fall off in 7 to 10 days, if they do not fall off okay to remove after 10 days. Follow Up Care Please Follow Up With: Inge Ryan MD When: Call the office for a follow-up appointment 2 weeks; after 5 PM and on the weekends call [phone] with any concerns. Test Results: Test results from this visit will be discussed in further detail at your follow- up appointment, if applicable. Discharge Plan Admission Attending Provider: Inge Ryan Primary Care Provider: Rey Hussein Instructions Additional Instructions / Restrictions: Okay to take ibuprofen/advil/motrin 400-600 mg PO q6hr PRN pain and/or Tylenol 650mg PO Q6H PRN pain along with Tramadol. Hold naproxen if taking ibuprofen/Advil/Motrin--same drug class Take all pain meds with food. Tramadol can cause constipation recommend taking daily stool softener (i.e. Colace/docusate) while taking the pain meds. Recommend starting some MiraLAX in 1-2 days if no bowel movement. If still no bowel movement the next day recommend taking magnesium citrate half the bottle and waiting 4-6 hours if still no results take the other half the bottle. Print Language: [place] Discharge Orders/Prescriptions Prescriptions: New tramadol 50 mg tablet 50 mg PO Q6H PRN (Reason: pain) Qty: 7 0RF Continued multivitamin [Daily Multi-Vitamin] Tablet 1 tab PO DAILY naproxen 500 mg tablet 250 mg PO BID PRN (Reason: pain) Patient Comments: take 1/2 tablet by mouth twice a day [id number] [Citracal Plus] 1 tab PO DAILY glucosamine HCl 500 mg tablet 500 mg PO DAILY Rx Instructions: administer with a meal Gemtesa 75 mg tablet 75 mg PO DAILY metoprolol succinate 25 mg tablet extended release 24 hr 25 mg PO QDAY lisinopril 10 mg tablet 10 mg PO DAILY Qty: 30 0RF amlodipine 5 mg tablet 5 mg PO DAILY Referrals / Follow Up: Rey Hussein MD [Primary Care Provider, Family Practice] Disposition Disposition (needs filled in before D/C Order can be placed): Home, Self Care
--- NOTE | 2025-04-30 11:24 | PCM.POST.ANE ---
Anesthesia: Postop Eval I Current Vital Signs Temperature: 97.4 F Pulse Rate: 69 Blood Pressure: 118/58 Respiratory Rate: 20 Pulse Ox: 95 Oxygen Delivery Method: Room Air Assessment Airway patent: Yes Spontaneous unlabored respirations: Yes Mental status: Awake and Calm nausea: No Vomiting: No Anesthesia Complication: No Fluid Hydration Crystalloid volume administer (ml): 1,200 Total IV fluid infused: 1,200 Progress Note Anesthesia document: Postop Eval 1 completed: Yes
--- NOTE | 2025-04-30 15:33 | POSTOPAN2_ITS ---
Anesthesia Postop Eval I Sum Postop Eval Completion status Anesthesia document: Postop Eval 1 completed: Yes Anesthesia Postop Eval I Summary Anesthesia Postop Eval I Summary: Anesthesia Postop Eval I: Assessment Summary Airway patent Yes 04/30/25 11:26 [email or web address] Spontaneous unlabored Yes 04/30/25 11:26 [email or web address] respirations Mental status Awake,Calm 04/30/25 11:26 [email or web address] nausea No 04/30/25 11:26 [email or web address] Vomiting No 04/30/25 11:26 [email or web address] Anesthesia Postop Eval I: Fluid Summary Crystalloid volume administer 1,200 04/30/25 11:26 [email or web address] (ml) Colloids volume administered ( ml) Blood Product volume administered (ml) Total IV fluid infused 1,200 04/30/25 11:26 [email or web address] Anesthesia Postop Eval I: Summary Notes Anesthesia Complication No 04/30/25 11:26 [email or web address] Anesthesia Complication Comment: Post-operative progress note Anesthesia: Postop Eval II Evaluation Mental status: Awake and Calm Pain Level: 0 nausea: No Vomiting: No Complications Anesthesia Complication: No
--- NOTE | 2025-04-30 15:33 | PCM.POSTANE2 ---
Anesthesia Postop Eval I Sum Postop Eval Completion status Anesthesia document: Postop Eval 1 completed: Yes Anesthesia Postop Eval I Summary Anesthesia Postop Eval I Summary: Anesthesia Postop Eval I: Assessment Summary Airway patent Yes 04/30/25 11:26 SET UP [email or web address] Spontaneous unlabored Yes 04/30/25 11:26 SET UP [email or web address] respirations Mental status Awake,Calm 04/30/25 11:26 SET UP [email or web address] nausea No 04/30/25 11:26 SET UP [email or web address] Vomiting No 04/30/25 11:26 SET UP [email or web address] Anesthesia Postop Eval I: Fluid Summary Crystalloid volume administer 1,200 04/30/25 11:26 SET UP [email or web address] (ml) Colloids volume administered ( ml) Blood Product volume administered (ml) Total IV fluid infused 1,200 04/30/25 11:26 SET UP [email or web address] Anesthesia Postop Eval I: Summary Notes Anesthesia Complication No 04/30/25 11:26 SET UP [email or web address] Anesthesia Complication Comment: Post-operative progress note Anesthesia: Postop Eval II Evaluation Mental status: Awake and Calm Pain Level: 0 nausea: No Vomiting: No Complications Anesthesia Complication: No
== END 2025-04-30 17:32 | disposition home or self-care (01) ==
LOC: SDC 07:51 → AC 07:55
PROVIDERS: PCP Family Medicine; Referring Provider Surgery; Visit Provider Surgery
PROC: (CPT 49650; principal; 2025-04-30 09:25)
DX: K40.20 Bilateral inguinal hernia, without obstruction or gangrene, not specified as recurrent (principal); I10 Essential (primary) hypertension; Z79.899 Other long term (current) drug therapy
CPT/HCPCS: 49650; S2900; 00840; C1781; J2405

== ENCOUNTER → 2025-07-10 | Outpatient (CLI) | payer MEDICARE, SELFPAY ==
--- OUTSIDE RECORDS SUMMARY | 2025-07-10 08:54 | XMS RPT_ITS | CCD ---
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 Rey Hussein Primary Care Provider Dr. Rey Hussein Referring Provider Dr. Matt Donald Attending Provider Dr. Derrick Potter Attending Provider Dr. Rey Hussein Primary Care Provider [phone] Rey Hussein Referring Provider [phone] CARMELITA Malagon Attending Provider Dr. Matt Donald Attending Provider Dr. Derrick Potter Attending Provider Dr. Rey Hussein Primary Care Provider [phone] Jovita, Dr. Le Referring Provider [phone] Matt Donald Attending Provider Dr. Rey Hussein Primary Care Provider [phone] Jovita, Dr. Le Referring Provider [phone] Chuy SAP BW ARCHITECT, WAI Chou Attending Provider LILLY HAND Attending Unavailable LILLY HAND Attending Unavailable LILLY HAND Attending Unavailable JOVITA JAVIER, DR REY Singh Primary Care Physician [phone] Mana Cuellar Unavailable Olegario HAND MD, DR LILLY Rodriguez Attending Ken Davidson MD, DR LILLY Rodriguez Attending Ken Cervantes MD, DR REY Singh Primary Care Unavailmurali HAND MD, DR LILLY Rodriguez Admitting Ken Davidson MD, DR LILLY Rodriguez Attending Unavailab JENI Jamison DO Referring Unavailable JOSIE ASBESTOS SIDING MECHANIC-AFTER SCHOOL COORDINATOR, MADINA M Consulting Unavaila fili Hussein MD, Dr. Le Primary Care Provider [phone] Jovita JAVIER, Dr. Le Referring Provider Rosi SAP BW ARCHITECT-C, Spike Keyes Attending Provider Jovita JAVIER, Dr. Le Attending Provider Jovita JAVIER, Dr. Le Primary Care Provider Jovita JAVIER, Dr. Le Referring Provider Cheyanne JAVIER, Dr. Watkins Attending Provider Connor JAVIER, Dr. Alcazar Attending Provider Jovita JAVIER, Dr. Le Primary Care Physician Jovita JAVIER, Dr. Le Attending Physician Cheyanne JAVIER, Dr. Watkins Attending Physician Connor JAVIER, Dr. Alcazar Attending Physician Connor JAVIER, Dr. Alcazar Referring Provider Connor JAVIER, Dr. Alcazar Nurse Practitioner Nurse, Surgery Attending Physician Unavailable Jovita JAVIER, Dr. Le Primary Care Physician [phone] Jovita JAVIER, Dr. Le Referring Provider Rey Hussein Attending Unavailable Hussein, Rey Referring Unavailable Hussein, Rey Primary Care Unavailable Hussein, Rey Primary Care Unavailable Hussein, Rey Attending Unavailable Hussein, Rey Referring Unavailable Hussein, Rey Primary Care Unavailable Robotham, Inge Attending Unavailable Robotham, Inge Referring Unavailable Hussein, Rey Referring Unavailable Hussein, Rey Primary Care Unavailable Robotham, Inge Attending Unavailable June Edward Attending Unavailable Hussein, Rey Referring Unavailable Hussein, Rey Primary Care Unavailable Hussein, Rey Referring Unavailable Hussein, Rey Primary Care Unavailable Robotham, Inge Attending Unavailable Hussein, Rey Referring Unavailable Hussein, Rey Primary Care Unavailable Robotham, Inge Attending Unavailable Hussein, Rey Referring Unavailable Hussein, Rey Primary Care Unavailable Roof SAP BW ARCHITECT, Spike Keyes Attending Unavailable Hussein, Rey Referring Unavailable Hussein, Rey Primary Care Unavailable June Edward Attending Unavailable Hussein, Rey Primary Care Unavailable Robotham, Inge Attending Unavailable Robotham, Inge Referring Unavailable Inge Ryan Consulting Unavailable Rey Hussein Referring Unavailable Rey Hussein Primary Care Unavailable Inge Ryan Attending Unavailable Allergies Allergy Classification Reported Allergen(s) Allergy Type Date of Onset Reaction(s) Facility (15 sources) Amoxicillin; Translations: [amoxicillin] Drug Allergy 09-28-2019 [facility] (12 sources) Ampicillin; Translations: [ampicillin] Drug Allergy 02-21-2023 unknown, [facility] (1 source) Amoxicillin Drug Allergy 06-02-2025 [facility] (1 source) Ampicillin Drug Allergy 06-02-2025 [facility] Medications Current Medications Medication Drug Class(es) Dates Sig (Normalized) Sig (Original) acetaminophen 1000 mg oral tablet (1 source) Start: 04-30-2024 take 1 tablet by mouth once daily Tylenol Dose : 1,000 mg = 2 tab(s), Oral, TID, not to exceed 3000 mg/day, 0 Refill(s) Start Date: 04/30/24 Status: Ordered amLODIPine 5 mg oral tablet (13 sources) Dihydropyridine Calcium Channel Letty Start: 04-16-2025 take 1 tablet by mouth once daily Amlodipine 5 mg tablet Active 5 mg PO DAILY April 16, 2025 12:00am Complies with drug therapy Start: 10-09-2024 End: 04-16-2025 take 1 tablet by mouth once daily Amlodipine 10 mg tablet Discontinued 10 mg PO daily October 09, 2024 1:00am April 16, 2025 8:08am Start: 04-10-2024 amLODIPine 10 mg oral tablet Dose : 10 mg = 1 tab(s), Oral, qDay, # 30 tab(s), 0 Refill(s) Start Date: 04/10/24 Status: Ordered aspirin 81 mg delayed release oral tablet (1 source) Platelet Aggregation Inhibitor, Nonsteroidal Anti-inflammatory Drug Start: 04-30-2024 End: 05-30-2024 take 1 tablet by mouth twice daily aspirin 81 mg oral delayed release tablet Dose : 81 mg = 1 tab(s), Oral, BID, Take 81 mg aspirin twice daily with food for 4 weeks postoperatively for DVT prophylaxis., # 60 tab(s), 0 Refill(s), Pharmacy: [facility], 161, cm, 04/29/24 13:50:00 EDT, Height, kg, 04/29/24 13:50:00 EDT, Dosing Weight Start Date: 04/30/24 Stop Date: 05/30/24 Status: Ordered calcium carbonate 1500 mg oral tablet (15 sources) Start: 04-10-2024 calcium (as carbonate) 600 mg oral tablet Dose : 600 mg = 1 tab(s), Oral, qDay, 0 Refill(s) Start Date: 04/10/24 Status: Ordered Start: 10-19-2021 End: 02-15-2023 take 1 tablet by mouth once daily Calcium Carbonate (Calcium 600) 600 mg calcium (1,500 mg) tablet Discontinued 600 mg PO DAILY October 19, 2021 12:00am February 15, 2023 1:51pm rjzszbt-idv-lhe J1-E3-icqzmb ls (Citracal Plus) (9 sources) Start: 02-15-2023 rtumqoh-uil-lg t P9-I0-knlpahvh (Citracal Plus) Active 1 {tbl} PO DAILY February 15, 2023 12:00am Complies with drug therapy Start: 02-15-2023 fwzhvwn-fro-da t J9-Y5-wnkpxzcr (Citracal Plus) Active 1 {tbl} PO DAILY February 15, 2023 12:00am Start: 02-15-2023 take 1 tablet by jose th once daily xmjnepl-ita-naf O5-Y7-sxowxdve (Citracal Plus) Active 1 TABLET PO DAILY February 14, 2023 11:00pm Start: 02-15-2023 take 1 tablet by jose th once daily edyvadn-gqc-ewg U6-S6-slzmrkvf (Citracal Plus) Active 1 TABLET PO DAILY February 15, 2023 12:00am docusate sodium 50 mg / sennosides, longterm 8.6 mg oral tablet (1 source) Start: 04-30-2024 End: 05-03-2024 take 1 tablet by mouth twice daily Senokot S 50 mg-8.6 mg oral tablet Dose = 2 tab(s), Oral, BID, Take until first bowel movement, then as needed, X 3 day(s), # 12 tab(s), 0 Refill(s), Pharmacy: [facility] [place], 161, cm, 04/29/24 13:50:00 EDT, Height, kg, 04/29/24 13:50:00 EDT, Dosing Weight Start Date: 04/30/24 Stop Date: 05/03/24 Status: Ordered famotidine 20 mg oral tablet (1 source) Histamine-2 Receptor Antagonist Start: 04-30-2024 Pepcid 20 mg oral tablet Dose : 20 mg = 1 tab(s), Oral, qDay, # 30 tab(s), 0 Refill(s), Pharmacy: [facility] [place], 161, cm, 04/29/24 13:50:00 EDT, Height, kg, 04/29/24 13:50:00 EDT, Dosing Weight Start Date: 04/30/24 Status: Ordered Dnwp-Pprpqk-Fifjulr n-D3-C-Mn (6 sources) Start: 10-19-2021 Rzwi-Juuahy-Jn lla gen-D3-C-Mn Active CAP PO October 19, 2021 10:01am Start: 10-19-2021 End: 02-15-2023 Iicl-Yfguag-Ecplciqm-D3-C-Mn Discontinued CAP PO October 18, 2021 11:00pm February 15, 2023 12:51pm Start: 10-19-2021 End: 02-15-2023 Eumi-Lhzxos-Oturyudm-D3-C-Mn Discontinued CAP PO October 19, 2021 12:00am February 15, 2023 1:51pm Start: 10-19-2021 Zqwf-Ststna-Gk lyrqfn-P0-A-Mn Active CAP PO October 18, 2021 11:00pm glucosamine sulfate 500 mg o ral capsule (12 sources) Start: 04-10-2024 glucosamine 50 0 mg oral capsule Dose : 500 mg = 1 cap(s), Oral, Daily, 0 Refill(s) Start Date: 04/10/24 Status: Ordered Start: 02-15-2023 take 1 tablet by jose once daily Glucosamine Hcl 500 mg tablet Active 500 mg PO DAILY February 15, 2023 12:00am administer with a meal Complies with drug therapy lisinopril 20 mg oral tablet (10 sources) Angiotensin Converting Enzyme Inhibitor Start: 04-10-2024 lisinopril 20 mg ora l tablet Dose : 10 mg = 0.5 tab(s), Oral, Daily, 0 Refill(s) Start Date: 04/10/24 Status: Ordered Start: 10-02-2023 take 1 tablet by jose th once daily Lisinopril 10 mg tablet Active 10 mg PO DAILY 30 0 October 02, 2023 1:00am Complies with drug therapy meloxicam 7.5 mg oral tablet (1 source) Nonsteroidal Anti-inflammatory Drug Start: 04-30-2024 Mobic 7.5 mg oral tablet Dose : 7.5 mg = 1 tab(s), Oral, BIDM, Do not take any other nonsteroidal anti-inflammatories while on meloxicam/Mobic., # 60 tab(s), 0 Refill(s), Pharmacy: [facility] [place], 161, cm, 04/29/24 13:50:00 EDT, Height, kg, 04/29/24 13:50:00 EDT, Dosing Weight Start Date: 04/30/24 Status: Ordered 24 hr metoprolol succinate 25 mg extended release oral tablet (10 sources) beta-Adrenergic Letty Start: 10-09-2024 take 1 tablet by mouth once daily Metoprolol Succinate 25 mg tablet extended release 24 hr Active 25 mg PO daily October 09, 2024 1:00am Complies with drug therapy Start: 04-30-2024 End: 04-30-2024 metoprolol succinate 25 mg o ral TABLET extended release Start: 04/30/24 8:00:00 AM EDT, Dose = 25 mg, = 1 tab(s), Oral, 0, 04/29/24 14:41:00 EDT Start Date: 04/30/24 Stop Date: 04/30/24 Status: Completed Start: 04-10-2024 Metoprolol Suc cinate ER 25 mg oral TABLET extended release Dose : 25 mg = 1 tab(s), Oral, qDay, # 30 tab(s), 0 Refill(s) Start Date: 04/10/24 Status: Ordered Multivitamin (Daily Multi-Vitamin) tablet (12 sources) Start: 10-19-2021 take 1 tablet by mouth once daily Multivitamin (Daily Multi-Vitamin) tablet Active 1 TABLET PO DAILY October 19, 2021 9:59am Start: 10-19-2021 Multivitamin ( Daily Multi-Vitamin) tablet Active 1 {tbl} PO DAILY October 19, 2021 12:00am Complies with drug therapy Start: 10-19-2021 Multivitamin ( Daily Multi-Vitamin) tablet Active 1 {tbl} PO DAILY October 19, 2021 12:00am Start: 10-19-2021 take 1 tablet by jose th once daily Multivitamin (Daily Multi-Vitamin) tablet Active 1 TABLET PO DAILY October 19, 2021 12:00am Start: 10-19-2021 take 1 tablet by jose th once daily Multivitamin (Daily Multi-Vitamin) tablet Active 1 TABLET PO DAILY October 18, 2021 11:00pm Multivitamin preparation (3 sources) Start: 04-10-2024 take 1 tablet by mouth once daily Multivitamin Dose = 1 tab(s), Oral, Daily, 0 Refill(s) Start Date: 04/10/24 Status: Ordered naproxen 500 mg oral tablet (20 sources) Nonsteroidal Anti-inflammatory Drug Start: 04-10-2024 naproxen 500 mg oral tablet Dose : 250 mg = 0.5 tab(s), Oral, BIDM, PRN for pain Start Date: 04/10/24 Status: Ordered Start: 02-15-2023 End: 10-09-2024 Naproxen 500 mg tablet Activ e 250 mg PO TWICE A DAY as needed for pain October 09, 2024 11:32am Complies with drug therapy Start: 02-15-2023 take 250 mg by mouth twice daily Naproxen Active 250 MG PO TWICE A DAY February 15, 2023 1:50pm Start: 10-19-2021 End: 02-15-2023 Naproxen 500 mg tablet Disco ntinued 500 mg PO October 19, 2021 12:00am February 15, 2023 1:52pm Start: 09-28-2019 End: 09-29-2019 take 1 tablet by mouth once daily as needed for pain Naproxen 500 MG tablet Discontinued 500 mg PO DAILY NEEDED as needed for Pain Or Fever September 28, 2019 1:00am September 29, 2019 12:30pm oxyCODONE hydrochloride 5 mg oral tablet (1 source) Opioid Agonist Start: 04-30-2024 End: 05-07-2024 take 1-2 tablets by mouth every four hours as needed for pain oxyCODONE 5 mg oral tablet ( IMMEDIATE release ) See Instructions, PRN as needed for pain, 1-2 tab(s) Oral q4h, # 42 tab(s), 0 Refill(s), 05/07/24 8:43:00 AM EDT, Pharmacy: [facility], Status post total right knee replacement, 161, cm, 04/29/24 13:50:00 EDT, Height, 71.9, kg, 04/29/24 13:50:00 EDT, Dosing Weight Start Date: 04/30/24 Stop Date: 05/07/24 Status: Ordered vibegron 75 MG Oral Tablet [Gemtesa] (3 sources) Start: 04-10-2024 Gemtesa 75 mg oral tablet Dose : 75 mg = 1 tab(s), Oral, qDay, # 30 tab(s), 0 Refill(s) Start Date: 04/10/24 Status: Ordered Vitamin D3 25 mcg (1000 intl units) oral capsule (3 sources) Start: 04-10-2024 Vitamin D3 25 mcg (1000 intl units) oral capsule Dose : 25 mcg = 1 cap(s), Oral, Daily, 0 Refill(s) Start Date: 04/10/24 Status: Ordered Completed/Discontinued Medications Medication Drug Class(es) Dates Sig (Normalized) Sig (Original) Hebu-Kjqkgq-Rqavzcdx-D 3-C-Mn 500-400-667 mg-mg-unit capsule (6 sources) Start: 2 End: 3 Mibl-Qkexkb-Lsekfqdt- D3-C-Mn 500-400-667 mg-mg-unit capsule Discontinued NMA PO October 19, 2021 12:00am February 15, 2023 1:51pm methylPREDNISolone 4 mg oral tablet (9 sources) Corticosteroid Start: 3 End: 3 take 1 tablet by mouth once Methylprednisolone (Medrol (Yossi)) 4 mg tablets,dose pack Discontinued 4 mg PO per package directions 21 6 0 February 02, 2023 12:00am February 07, 2023 12:00am February 08, 2023 12:03am 24 hr oxybutynin chloride 10 mg extended release oral tablet (20 sources) Cholinergic Muscarinic Antagonist Start: 3 End: 3 take 1 tablet by mouth once daily Oxybutynin Chloride 10 mg tablet extended release 24hr Discontinued 10 mg PO DAILY February 15, 2023 12:00am May 30, 2023 9:31am Start: 09-28-2019 End: 02-15-2023 take 1 tablet by mouth every other day Oxybutynin Chloride 5 MG tablet extended release 24hr Discontinued 5 mg PO EVERY OTHER DAY September 28, 2019 1:00am February 15, 2023 1:52pm tamsulosin hydrochloride 0.4 mg oral capsule (4 sources) alpha-Adrenergic Letty Start: 05-01-2025 End: 05-01-2025 take 1 capsule by mouth once daily Tamsulosin (Flomax) 0.4 mg capsule Discontinued 0.4 mg PO daily May 01, 2025 12:00am May 01, 2025 1:05pm traMADol hydrochloride 50 mg oral tablet (4 sources) Opioid Agonist Start: 04-30-2025 End: 05-05-2025 take 1 tablet by mouth every six hours as needed for pain Tramadol 50 mg tablet Discontinued 50 mg PO EVERY 6 HOURS as needed for pain 7 April 30, 2025 12:00am May 05, 2025 9:16am Postoperative pain Other acute postprocedural pain Vibegron (8 sources) Start: 05-30-2023 End: 05-05-2025 take 1 tablet by mouth once daily Vibegron (Gemtesa) 75 mg tablet Discontinued 75 mg PO DAILY May 30, 2023 12:00am May 05, 2025 9:17am Start: 05-30-2023 take 1 tablet by jose th once daily Vibegron (Gemtesa) 75 mg tablet Active 75 mg PO DAILY May 30, 2023 12:00am Start: 05-30-2023 take 1 tablet by jose th once daily Vibegron (Gemtesa) 75 mg tablet Active 75 MG PO DAILY May 30, 2023 12:00am Start: 05-30-2023 take 1 tablet by jose th once daily Vibegron (Gemtesa) 75 mg tablet Active 75 MG PO DAILY May 29, 2023 11:00pm Problems Active Problems Problem Classification Problem Date Documented Da te Episodic/Chronic Abdominal hernia (15 sources) Right inguinal hernia ; Translations: [Unilateral inguinal hernia, without obstruction or gangrene, not specified as recurrent] Onset: 5 03-27-2025 Episodic Disorders of lipid metabolism (1 source) Hyperlipidemia, unspecified; Translations: [Hyperlipidemia, unspecified] Onset: 5 Chronic Essential hypertension (9 sources) Hypertensive disorder; Translations: [Essential (primary) hypertension] Onset: 4 10-10-2023 Chronic Genitourinary symptoms and ill-defined conditions (9 sources) Urge incontinence of urine; Translations: [Urge incontinence] Onset: 5 05-05-2025 Chronic Genitourinary symptoms and ill-defined conditions (20 sources) Retention of urine; Translations: [Nocturia] Onset: 5 Episodic Comment on above: post operative Heart valve disorders (12 sources) Aortic valve stenosis; Translations: [Nonrheumatic aortic (valve) stenosis] 02-21-2023 Chronic Nonspecific chest pain (12 sources) Chest pain; Translations: [Chest pain, unspecified] 02-21-2023 Episodic Osteoarthritis (20 sources) Osteoarthritis of right knee joint; Translations: [Unilateral primary osteoarthritis, right knee] Onset: 4 Chronic Other connective tissue disease (1 source) Artificial knee joint present; Translations: [Presence of right artificial knee joint] Onset: 4 Chronic Other gastrointestinal disorders (8 sources) Constipation; Translations: [Constipation, unspecified] 05-05-2025 Episodic Other non-traumatic joint disorders (12 sources) Pain in right knee; Translations: [Right knee pain] 02-15-2023 Episodic Other screening for suspected conditions (not mental disorders or infectious disease) (9 sources) Ambulatory ECG abnormal; Translations: [Abnormal electrocardiogram [ECG] [EKG]] 02-15-2023 Episodic Comment on above: [facility] 12/27/2022 Sprains and strains (9 sources) Strain of knee; Translations: [Strain of unspecified muscle(s) and tendon(s) at lower leg level, left leg, initial encounter] 02-15-2023 Episodic Syncope (12 sources) Syncope; Translations: [Syncope and collapse] 02-21-2023 Episodic Unclassified (4 sources) R33.9 - Retention of urine, unspecified Past or Other Problems Problem Classification Problem Date Documented Da te Episodic/Chronic Cardiac dysrhythmias (8 sources) Bradycardia; Translations: [Bradycardia, unspecified] Onset: 10-09-2024 10-09-2024 Episodic Results Test Name Value Interpretation Reference Range Facility MR/Arlette 06-02-2025 MR/[facility] [address], [address] [place] [id number] OFFICE VISIT Date of Service: 06/02/25 MR#: [id number] Acct: [id number] Name: MOHINI OLIVARES Rep #: [id number] 4 : 1940 Provider: Dr. June Reaves i, MD Age/Sex: 84/F Location: [facility] Status: Signed Intake Vital Signs 05/05/25 09:18 06/02/25 09:31 Height 5 ft 4 in 5 ft 4 in Weight: 158 lb 158 lb BMI 27.1 27.1 BP 130/89 H 133/73 H Pulse 52 L 52 L Intake Visit Reasons: med f/u with PVR Chief Complaint: medication follow up with PVR Textile Bag Sewer Required: No Accompanied by: self Is patient in pain?: No Allergies ampicillin Allergy (Unknown, Verified 06/02/25 09:31) unknown amoxicillin Allergy (Verified 06/02/25 09:31) Rash Medications ???Medication ???Instructions ???Recorded ???Confirmed ???Type multivitamin (Daily Multi-Vitamin 1 tab PO DAILY 10/19/21 06/02/25 History tablet) ulrflby-fuv-mue A4-M6-tatjghyb 1 tab PO DAILY 02/15/23 06/02/25 H istory [Citracal Plus] glucosamine HCl 500 mg tablet 500 mg PO DAILY 02/15/23 06/02/25 History lisinopril 10 mg tablet 10 mg PO DAILY #30 tabs 10/02/23 1 Rx metoprolol succinate 25 mg 25 mg PO QDAY 10/09/24 06/02/25 Hi story tablet,extended release 24 hr naproxen 500 mg tablet 250 mg PO BID PRN pain 10/09/24 History amlodipine 5 mg tablet 5 mg PO DAILY 04/16/25 06/02/25 Hi story Have you fallen in the past year?: No Nurse's Note: Bladder scan PVR 6cc. 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 She is here for medication follow up after restarting her Gemtesa. She decided not to restart the Gemtesa. She is actually doing well. One time yesterday she had to aguiar to the bathroom, but this is not a regular event for her now. Her bowels are doing well. No straining to void. She has not had any urinary tract infections since the last visit. She has not had any blood in the urine since the last visit. ROS Const Constitutional: No chills, fatigue, fever(s), headache(s), night sweats, weakness, weight change, abnormal sleep pattern or change in appetite Eyes Eyes: No change in vision ENT ENT: No headache(s) or dry mouth Resp Respiratory: No cough, chest congestion, shortness of breath or wheezing Cardio Cardiology: Positive for other (No chest pain.); No shortness of breath, irregular heart rhythm or lightheadedness Gastro GI: Positive for other (No nausea.); No abdominal pain, change in bowel habits, constipation, diarrhea or vomiting Musc Musculoskeletal: No abnormal gait Skin Skin: No yellowing of the eye, lesions, itchy eyes, rash or skin ulcer Neuro Neurology: No abnormal gait, confusion, dizziness, weakness, headache(s) or memory loss Psych Psychiatric: No abnormal sleep pattern, No change in appetite, No confusion and No memory loss Endo Endocrine: No fatigue, increased thirst/drinking or weight change Aller/Imm Allergy/Immunologic: No itchy eyes or wheezing Saeid/Lymp Hematologic/Lymphatic: No easy bleeding, easy bruising or enlarged lymph nodes Exam Const General: cooperative, healthy appearing, comfortable, no acute distress and other (walking with cane.) HENMA Head: normocephalic and atraumatic Ears: hearing grossly normal bilaterally and external ears normal Nose: external nose normal Eyes General: appearance normal, both eyes and all related structures Neck Neck: normal visual inspection and tr (more content not included)... Normal [facility] Surgery Visit Reporton 05-15 Surgery Visit Report [facility] [address] [place] [address] OFFICE VISIT Date of Service: 05/15/25 MR#: [id number] Acct: [id number] Name: MOHINI OLIVARES Rep #: [id number] 2 : 1940 Provider: Dr. Inge harris MD Age/Sex: 84/F Location: [facility] Status: Signed Intake Vital Signs 05/05/25 09:18 Height 5 ft 4 in Weight: 158 lb BMI 27.1 BP 130/89 H Pulse 52 L Intake Visit Reasons: HERNIA 9-25 Chief Complaint: hernia 9-25 Is patient in pain?: No Allergies ampicillin Allergy (Unknown, Verified 05/15/25 13:10) unknown amoxicillin Allergy (Verified 05/15/25 13:10) Rash Medications ???Medication ???Instructions ???Recorded ???Confirmed ???Type multivitamin (Daily Multi-Vitamin 1 tab PO DAILY 10/19/21 05/15/25 History tablet) zunfxzu-kkl-sec S1-B6-fnssilxi 1 tab PO DAILY 02/15/23 05/15/25 H istory [Citracal Plus] glucosamine HCl 500 mg tablet 500 mg PO DAILY 02/15/23 05/15/25 History lisinopril 10 mg tablet 10 mg PO DAILY #30 tabs 10/02/23 1 Rx metoprolol succinate 25 mg 25 mg PO QDAY 10/09/24 05/15/25 Hi story tablet,extended release 24 hr naproxen 500 mg tablet 250 mg PO BID PRN pain 10/09/24 History amlodipine 5 mg tablet 5 mg PO DAILY 04/16/25 05/15/25 Hi story Have you fallen in the past year?: Yes Subjective Details: 84-year-old female presents status post bilateral inguinal robotic hernia repairs with mesh. Patient initially did have some urinary retention which may have been partly due to her medication. patient did see urology Barrera catheter was able to come out with no issues. Patient denies any abdominal pain or issues postop otherwise. Objective Details: Incisions healing well clean dry and intact Coding Level of Care Code Global Post Op Diagnoses S/P bilateral inguinal hernia repair Z98.890; Z87.19 [facility] Medical History (Updated 05/05/25 @ 09:[address] June Edward MD) Nocturia Urge incontinence Wears glasses Ambulates with cane OAB (overactive bladder) Non-smoker Hypertension History of stress test History of echocardiogram Cardiology follow-up encounter Right inguinal hernia Osteoarthritis of right knee Holter monitor, abnormal Syncope Strain of left knee Difficulty balancing Incontinence Knee pain Cancer of skin Arthritis Hx of fracture of wrist Right knee DJD Right knee pain Melanoma Basal cell carcinoma Chest pain Osteoarthritis Surgical History (Updated 05/18/25 @ 10:17 by Dr. 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 Patient tolerating diet and having bowel function. Follow-up as needed. Patient agreeable to plan. Inge Ryan M.D. Pager: [phone] [facility] [address] [place] [address] [address] [place] [address] Office: [phone] 05/18/25 1029 Date Inge Wilkinson Signature: Date (if applicable) CC: Dr. Rey Hussein MD [facility] MR/Arlette 05-05-2025 MR/BMSPAMELA [facility] [address] [place] [address], [address] [place] [address] OFFICE VISIT Date of Service: 05/05/25 MR#: [id number] Acct: [id number] Name: MOHINI OLIVARES Rep #: [id number] : 1940 Provider: Dr. June Reaves i, MD Age/Sex: 84/F Location: [facility] Status: Signed Intake Vital Signs 04/30/25 08:21 05/05/25 09:18 Height 5 ft 4 in 5 ft 4 in Weight: 158 lb BMI 27.1 BP 130/89 H Pulse 52 L Intake Visit Reasons: PVR Chief Complaint: PVR Textile Bag Sewer Required: No Accompanied by: self Is patient in pain?: No Allergies ampicillin Allergy (Unknown, Verified 05/05/25 09:16) unknown amoxicillin Allergy (Verified 05/05/25 09:16) Rash Medications ???Medication ???Instructions ???Recorded ???Confirmed ???Type multivitamin (Daily Multi-Vitamin 1 tab PO DAILY 10/19/21 05/05/25 History tablet) [id number]-[id number] P4-T9-iobgzqxb 1 tab PO DAILY 02/15/23 05/05/25 H istory [Citracal Plus] glucosamine HCl 500 mg tablet 500 mg PO DAILY 02/15/23 05/05/25 History lisinopril 10 mg tablet 10 mg PO DAILY #30 tabs 10/02/23 0 05/05/25 Rx metoprolol succinate 25 mg 25 mg PO QDAY 10/09/24 05/05/25 Hi story tablet,extended release 24 hr naproxen 500 mg tablet 250 mg PO BID PRN pain 10/09/24 History amlodipine 5 mg tablet 5 mg PO DAILY 04/16/25 05/05/25 Hi story Have you fallen in the past year?: No Nurse's Note: stopped gemtesa for inguinal hernia repair on Bladder scan PVR 23cc [facility] Medical History (Updated 05/05/25 @ 09:[address] 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 She had an inguinal hernia repair last week and had postoperative urinary retention. Her Gemtesa was subsequently held. Her Barrera catheter was removed at home before bed last night. She is here currently for a postvoid residual assessment. She voided at 5:30am. No straining to void. There is no constipation, it was resolved yesterday. We discussed how the constipation can increase the risk of urinary retention. She did take some softeners, Miralax on Sunday. We discussed taking something regularly for the next few weeks. ROS Const Constitutional: No chills, fatigue, fever(s), headache(s), night sweats, weakness, weight change, abnormal sleep pattern or change in appetite Eyes Eyes: No change in vision ENT ENT: No headache(s) or dry mouth Resp Respiratory: No cough, chest congestion, shortness of breath or wheezing Cardio Cardiology: Positive for other (No chest pain.); No shortness of breath, irregular heart rhythm or lightheadedness Gastro GI: Positive for constipation and other (No nausea.); No abdominal pain, change in bowel habits, diarrhea or vomiting Musc Musculoskeletal: No abnormal gait Skin Skin: No yellowing of the eye, lesions, itchy eyes, rash or skin ulcer Neuro Neurology: No abnormal gait, confusion, dizziness, weakness, headache(s) or memory loss Psych Psychiatric: No abnormal sleep pattern, No change in appetite, No confusion and No memory loss Endo Endocrine: No fatigue, increased thirst/drinking or weight change Aller/Imm Allergy/Immunologic: No itchy eyes or wheezing Saeid/Lymp Hematologic/Lymphatic: No easy bleeding, easy bruising or enlarged lymph nodes Exam Const General: cooperative, healthy appearing, comfortable, no acute distress and other (walking with cane.) [facility] Head: normocephalic and atraumatic Ears: hearing grossly normal bilaterally and external ears normal Nose: external nose normal Eyes General: appearance normal, both eyes and all related structures (more content not included)... Normal [facility] Office Visit Reporton 2024 Office Visit Report [facility] [address] [place] [address] OFFICE VISIT Date of Service: 05/01/25 MR#: [id number] Acct: [id number] Patient: MOHINI OLIVARES Rep #: [id number] : 1940 Provider: Surgery Nurse Age/Sex: 84/F Location: [facility] Status: Signed Intake Vital Signs 04/30/25 08:21 Height 5 ft 4 in Intake Visit Reasons: unable to void Chief Complaint: unable to void/requires barrera catheter Is patient in pain?: No Allergies ampicillin Allergy (Unknown, Verified 05/01/25 13:35) unknown amoxicillin Allergy (Verified 05/01/25 13:35) Rash Medications ???Medication ???Instructions ???Recorded ???Confirmed ???Type multivitamin (Daily Multi-Vitamin 1 tab PO DAILY 10/19/21 05/01/25 History tablet) [id number]-ase-xaj W6-F8-hndskugy 1 tab PO DAILY 02/15/23 05/01/25 H istory [Citracal Plus] glucosamine HCl 500 mg tablet 500 mg PO DAILY 02/15/23 05/01/25 History vibegron 75 mg tablet (Gemtesa) 75 mg PO DAILY 05/30/23 05/01/25 H istory lisinopril 10 mg tablet 10 mg PO DAILY #30 tabs 10/02/23 0 05/01/25 Rx metoprolol succinate 25 mg 25 mg PO QDAY 10/09/24 05/01/25 Hi story tablet,extended release 24 hr naproxen 500 mg tablet 250 mg PO BID PRN pain 10/09/24 History amlodipine 5 mg tablet 5 mg PO DAILY 04/16/25 05/01/25 Hi story tramadol 50 mg tablet 50 mg PO Q6H PRN pain #7 tabs 04/0705/01/25 Rx Have you fallen in the past year?: No Nursing Note Patient here for barrera catheter placement due to unable to void. Patient did c/o fullness, but no pain. Said she dribbled a few drops prior to leaving house. Patient is on gemtesa. Patient prepped and draped for barrera catheter placement. 16Fr 10cc barrera catheter inserted via sterile technique after 3 attempts. Yellow urine flow upon placement. Leg bag attached with leg strap for catheter. Patient cleansed and assisted with sitting up. Educated patient on how to drain urine and how to apply a barrera bag at nighttime instead of leg bag. Clean urinal given. Patient had 220cc output. Did discuss with patient that [facility] home health left message for Dr Edward's office to call back in regards to have urinary catheter. Assessment and Plan Assessment and Plan Orders: Referrals Urology R33.9 - Retention of urine, unspecified Medications: Discontinued tamsulosin (Flomax) Discontinued Reason: Order Changed 0.4 mg PO QDAY 20 caps 0RF Clinical Quality Measures Falls Risk Screening/Assistive Devices Have you fallen in the past year?: No 05/02/25 1005 Date Inge Ryan MD Cosigner Signature: Date (if applicable) CC: Normal [facility] Discharge Instructionon 04-07 Discharge Instruction [facility] Medical Records Department [address] [place] [address] Instructions for Home/Discharge Instructions 04/30/25 1106 MR#: [id number] Acct: [id number] Name: MOHINI OLIVARES Rep #: [id number] : 1940 84 From: Inge Ryan MD PCP: Dr. Rey Hussein MD [place] [facility] [place]charge Instructions Diet Discharge Diet: Light diet - advance as tolerated Activity Discharge Activity: May Not Drive (while taking narcotic pain medications.) May shower in (days): 1 Lifting Restrictions: no lifting >20 lbs x 2 wks, no strenuous exercise for 4 wks Dressing / Incision Call your doctor if your incision/area has: Continuous Slow Oozing, Sudden Increased Bleeding, Increased Pain/ Swelling, Increased Redness, Foul Smelling Discharge and Swelling at the incision site Call your doctor if you observe: Fever of 101 or Higher Remove Dressing in: 2 days Cleanse incision/area with: Soap Water Additional Dressing/Incision Instructions:: Steri-Strips will fall off in 7 to 10 days, if they do not fall off okay to remove after 10 days. Follow Up Care Please Follow Up With: Inge Ryan MD When: Call the office for a follow-up appointment 2 weeks; after 5 PM and on the weekends call [phone] with any concerns. Test Results: Test results from this visit will be discussed in further detail at your follow-up appointment, if applicable. Discharge Plan Admission Attending Provider: Inge Ryan Primary Care Provider: Rey Hussein Instructions Additional Instructions / Restrictions: Okay to take ibuprofen/advil/motrin 400-600 mg PO q6hr PRN pain and/or Tylenol 650mg PO Q6H PRN pain along with Tramadol. Hold naproxen if taking ibuprofen/Advil/Motrin- -same drug class Take all pain meds with food. Tramadol can cause constipation recommend taking daily stool softener (i.e. Colace/docusate) while taking the pain meds. Recommend starting some MiraLAX in 1-2 days if no bowel movement. If still no bowel movement the next day recommend taking magnesium citrate half the bottle and waiting 4-6 hours if still no results take the other half the bottle. Print Language: Cymraes Discharge Orders/Prescriptions Prescriptions: New tramadol 50 mg tablet 50 mg PO Q6H PRN (Reason: pain) Qty: 7 0RF Continued multivitamin [Daily Multi-Vitamin] Tablet 1 tab PO DAILY naproxen 500 mg tablet 250 mg PO BID PRN (Reason: pain) Patient Comments: take 1/2 tablet by mouth twice a day zdvfeby-dyx-dtb P8-R8-dltcqayr [Citracal Plus] 1 tab PO DAILY glucosamine HCl 500 mg tablet 500 mg PO DAILY Rx Instructions: administer with a meal Gemtesa 75 mg tablet 75 mg PO DAILY metoprolol succinate 25 mg tablet extended release 24 hr 25 mg PO QDAY lisinopril 10 mg tablet 10 mg PO DAILY Qty: 30 0RF amlodipine 5 mg tablet 5 mg PO DAILY Referrals / Follow Up: Rey Hussein MD [Primary Care Provider, Family Practice] Disposition Disposition (needs filled in before D/C Order can be placed): Home, Self Care 04/30/25 1111 Inge Ryan MD CC: Dr. Rey Hussein MD Signed Normal [facility] H AND P Exam - Surgicalon H&P Exam - Surgical [facility] Medical Records Department [address] [place] [address] H P Exam - Surgical 04/30/25 0846 MR#: [id number] Acct: [id number] Name: MOHINI OLIVARES Rep #: [id number] : 1940 84 From: Inge Ryan MD PCP: Dr. Rey Hussein MD [place] [facility] Location: [place] [address] HPI - General General Date of Service: 04/30/25 HPI Narrative MOHINI OLIVARES, is a 84 F who presents for robotic right inguinal hernia repair possible bilateral. Patient denies any changes since her office visit. Did have her Mohs surgery about a week ago for her nose. Office visit 03/27/2025 HPI HPI: 84-year-old female presents due to a right inguinal hernia. Patient states her PCP noted about a year ago. Patient had a last 2 to 3 months she does notice a bulge there denies any pain. Patient is interested in having it repaired. Patient currently does have a Mohs surgery for the left side of her nose on April 22 and also has a melanoma on the back of her neck but will be evaluated at that time as well. Patient would prefer surgery after the Mohs surgery. [facility] Medical History (Updated 04/16/25 @ 08:23 by Roseanna London) Wears glasses Ambulates with cane OAB (overactive bladder) Non-smoker Hypertension History of stress test History of echocardiogram Cardiology follow-up encounter Right inguinal hernia Osteoarthritis of right knee Holter monitor, abnormal Syncope Strain of left knee Difficulty balancing Incontinence Knee pain Cancer of skin Arthritis Hx of fracture of wrist Right knee DJD Right knee pain Melanoma Basal cell carcinoma Chest pain Osteoarthritis Home Medications ???Medication ???Instructions ???Recorded ???Last Taken ???Type multivitamin (Daily Multi-Vitamin 1 tab PO DAILY 10/19/21 Unknown H istory tablet) kwecntj-zjp-plf S8-O2-pedboltj 1 tab PO DAILY 02/15/23 Unknown Hi story [Citracal Plus] glucosamine HCl 500 mg tablet 500 mg PO DAILY 02/15/23 Unknown H istory vibegron 75 mg tablet (Gemtesa) 75 mg PO DAILY 05/30/23 Unknown Hi story lisinopril 10 mg tablet 10 mg PO DAILY #30 tabs 10/02/23 U nknown Rx metoprolol succinate 25 mg 25 mg PO QDAY 10/09/24 04/30/25 Hi story tablet,extended release 24 hr naproxen 500 mg tablet 250 mg PO BID PRN pain 10/09/24 Un known History amlodipine 5 mg tablet 5 mg PO DAILY 04/16/25 04/30/25 Hi story Allergy/AdvReac Type Severity Reaction Status Date / Time ampicillin Allergy Unknown unknown Verified 04/30/25 08:19 amoxicillin Allergy Rash Verified 04/30/25 08:19 Family History Mother Hypertension Heart disease Cancer Melanoma Father Emphysema of lung Grandmother Diabetes Grandfather Myocardial infarction Brother Melanoma Other Right knee DJD Surgical History (Updated 04/16/25 @ 08:12 by Roseanna London) History of colonoscopy 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) History of dilatation and curettage History of cataract extraction Social History Smoking Status: Never smoker alcohol intake: never substance use type: does not use caffeine: Yes (Occasionally) Vital Signs Vital Signs Vital Signs: 04/30/25 08:21 04/30/25 08:21 Temperature 97.6 F L Temperature Source Temporal Pulse Rate 47 L Respiratory Rate 16 Respiratory Pattern Normal Blood Pressure 118/56 L Blood Pressure Mean 76 Blood Pressure Source Monitor Blood Pressure Position Semi-Fowlers Blood Pressure Location Left Arm Pulse Ox 97 Oxygen Delivery Method Room Air Weight Weight: 157 lb 6.561 oz Body Mass Index (BMI) 27.0 Physical Exam Const alert, oriented x3 and no apparent distress HEENT normocephalic and head/scalp atraumatic Resp normal respiratory effort Cardio regular rate GI soft to palpation and non-tender; Negative for non-distended GI Narrative: Right inguinal hernia reducible. Palpation: Negative for guarding Extremity no clubbing, cyanosis or edema Skin no rashes or lesions noted Neuro CN's II-XII intact bilaterally Psych mental status grossly normal Assessment Plan Assessment/Plan (1) Right inguinal hernia: PLAN: Plan Plan to do robotic right inguinal hernia repair with mesh, possible bilateral. Reviewed the procedure with the patient including the risks, including but not limited to infection, bleeding, paresthesia, chronic pain, injury to small bowel, ligation of the round ligament, and recurrence. All questions were answered. Inge Ryan M.D. Pager: [phone] [facility] [address] [place] [address], [facility], [address] [place] [address] Office: [phone] (more content not included)... [facility] MR/POSTOP.ANEon 04-30-2025 MR/POSTOP.[facility] Medical Records Department [facility] [place] [address] Anesthesia Postop Eval I 04/30/25 1124 MR#: [id number] Acct: [id number] Name: ADRIANAMOHINI DEMPSEY Rep #: [id number] : 1940 84 From: Reagan Tilley CRNA PCP: Dr. Rey Hussein MD Status:REG [facility] Y Race: C Location: [place] [address] Anesthesia: Postop Eval I Current Vital Signs Temperature: 97.4 F Pulse Rate: 69 Blood Pressure: 118/58 Respiratory Rate: 20 Pulse Ox: 95 Oxygen Delivery Method: Room Air Assessment Airway patent: Yes Spontaneous unlabored respirations: Yes Mental status: Awake and Calm nausea: No Vomiting: No Anesthesia Complication: No Fluid Hydration Crystalloid volume administer (ml): 1,200 Total IV fluid infused: 1,200 Progress Note Anesthesia document: Postop Eval 1 completed: Yes 04/30/25 112 Date Reagan Mota Signature: Date CC: Signed [facility] MR/IWABVYAR2sj 04-30-2025 MR/POSTOPAN2 [facility] Medical Records Department [facility] [place] [address] Anesthesia Postop Eval II 04/30/25 1533 MR#: [id number] Acct: [id number] Name: MOHINI OLIVARES Rep #: [id number] : 1940 84 From: Judy Maddox DENTURE FINISHER PCP: Dr. Rey Hussein MD Status:REG [facility] Y Race: C Location: [place] [address] Anesthesia Postop Eval I Sum Postop Eval Completion status Anesthesia document: Postop Eval 1 completed: Yes Anesthesia Postop Eval I Summary Anesthesia Postop Eval I Summary: Anesthesia Postop Eval I: Assessment Summary Airway patent Yes 04/30/25 11:26 DENTURE [email or web address] Spontaneous unlabored Yes 04/30/25 11:26 DENTURE [email or web address].PKEL respirations Mental status Awake,Calm 04/30/25 11:26 DENTURE [email or web address].[email or web address] nausea No 04/30/25 11:26 DENTURE [email or web address].[email or web address] Vomiting No 04/30/25 11:26 DENTURE [email or web address].[email or web address] Anesthesia Postop Eval I: Fluid Summary Crystalloid volume administer 1,200 04/30/25 11:26 DENTURE [email or web address].PKEL (ml) Colloids volume administered ( ml) Blood Product volume administered (ml) Total IV fluid infused 1,200 04/30/25 11:26 DENTURE [email or web address].[email or web address] Anesthesia Postop Eval I: Summary Notes Anesthesia Complication No 04/30/25 11:26 DENTURE [email or web address].[email or web address] Anesthesia Complication Comment: Post-operative progress note Anesthesia: Postop Eval II Evaluation Mental status: Awake and Calm Pain Level: 0 nausea: No Vomiting: No Complications Anesthesia Complication: No 04/30/25 1533 Date Judy Maddox DENTURE FINISHER Cosigner Signature: Date CC: Signed Normal [facility] Operative Reporton 5 Operative Report [facility] Medical Records Department [address] [place] [address] Operative Report 04/30/25 1103 MR#: [id number] Acct: [id number] Name: ADRIANAMOHINI SOSA ROSELYN Rep #: [id number] : 1940 84 From: Inge Ryan MD PCP: Dr. Rey Hussein MD Status:[facility] [place] [facility] Operative Report (Standard) Operative Information Date of Procedure: 04/30/25 Pre-Operative Diagnosis: Right inguinal hernia Post-Operative Diagnosis: Bilateral indirect inguinal hernias Surgery/Procedure Performed: Robotic bilateral inguinal hernia pair with mesh calciner feeder: Yes Director Of Marketing Communications: Lavern Perdue Tasks completed by shop assistant: Opening closing Type of Anesthesia: General/Supplemental RN Documented Start/Stop Times: Operation Date: 04/30/25 09:45 Case Time Into Pre-Op 04/30/25 08:01 Out of Pre-Op 04/30/25 09:22 Anesthesia Start 04/30/25 09:25 Into Room 04/30/25 09:25 Procedure Start 04/30/25 09:49 Procedure End 04/30/25 11:12 Anesthesia End 04/30/25 11:17 Out of Room 04/30/25 11:17 Into Recovery 04/30/25 11:19 Out of Recovery 04/30/25 12:19 Into Phase II Recovery 04/30/25 12:20 Out of Phase II 04/30/25 17:32 Procedure Start Time: 09:49 Procedure Stop Time: 11:12 Select all DRAINS/GRAFTS/IMPLANTS that apply: Prosthetic device Prosthetic device details: ProGrip mesh bilaterally [Lot [id number], [id number]] Special Medications: Clindamycin 900 mg IV x 1 Estimated Blood Loss: < 10 cc Specimen collected: No Description of surgery: Indications: 84-year-old female presented with right inguinal hernia. Robotic right inguinal hernia pair with mesh, possible bilateral elected patient was agreeable. Description of procedure: Patient was brought to operating room placed supine operative table. Timeout was completed verifying correct patient, procedure, site, positioning, special, prior to beginning procedure. General anesthesia was induced. Patient's arms were tucked and padded appropriately. Visiport was used to make the incision at Delvalle's point in the left upper quadrant. Entry into the abdomen was confirmed visually. Laparoscope was placed. Verifying no injury during initial trocar placement. Patient was placed in Trendelenburg position. Two 8 mm trochars were placed along the horizontal line in the midline and in the right upper quadrant. The initial 5 mm trocar was upsized to an 8 mm well under direct visualization. Both the inguinal regions were inspected and left indirect and right direct hernias were seen. Both procedures done similarly. The median umbilical ligament was divided sharply with electrocautery. Peritoneum was incised with the endoscopic scissors along a line 2 cm above the superior edge of the hernia defect extending from the median umbilical ligament to anterior superior iliac spine. Peritoneal flap was mobilized inferiorly using blunt and sharp/cautery dissection. The inferior epigastric vessels were exposed and symphysis pubis and identified. The indirect hernia sac was inverted and dissected. Round ligament was ligated using electrocautery. A ProGrip mesh were used for left and right. The mesh was rolled longitudinally into a compact cylinder and passed through the trocar. The cylinder was placed along the inferior aspect of the working space and unrolled into place to completely cover the direct, indirect and femoral spaces. The mesh was secured in place medially to Carl's ligament using the 3-0 Vicryl suture. Care was taken to avoid the inferolateral triangle containing iliac vessels and genital nerves. The peritoneal flap was closed over mesh and secured with 3-0 V-Loc suture. After ensuring adequate hemostasis, the trochars were removed and pneumoperitoneum allowed to escape. The skin was closed with 4-0 Monocryl interrupted sutures and Steri-Strips. Patient's testicles are also confirmed in the scrotum bilaterally. Patient tolerated procedure well was taken to the postanesthesia care unit in stable condition. Surgical Findings: See operative report Complications Complications: No 05/01/25 1157 Cosigner Signature (if applicable): CC: Dr. Rey Hussein MD; Dr. Inge Ryan MD Signed [facility] MR/PAT.JOSEon 04-16-2025 MR/PAT.[facility] Medical Records Department [address] [place] [address] PAT - Anesthesia 04/16/252052 MR#: [id number] Acct: [id number] Name: MOHINI OLIVARES Rep #: [id number] : 1940 84 From: Manoj Barrios MD PCP: Dr. 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 When Was Last Pacemaker Check QUESTION #4 FULL TEXT: You/Your Family Experience fever (hyperthermia) with Anesthesia Last Oral Intake Last Oral intake: Last Oral Intake NPO since Meds taken in AM with sips of water? Meds patient instructed to take am of surgery PONV PONV - blast furnace blower: PONV - blast furnace blower Female Yes 04/16/25 08:12 HX of Motion Sickness No 04/16/25 08:12 HX of N/V After Surgery No 04/16/25 08:12 Non-Smoker Yes 04/16/25 08:12 Duration of Surgery greater Yes 04/16/25 08:12 than 60 minutes Number of Risk Factors 3 04/16/25 08:12 PONV Score Moderate Risk 04/16/25 08:12 Height Weight Height Weight: Anesthesia: Height Weight Height 5 ft 4 in 03/27/25 12:34 Respiratory Assessment Respiratory Assessment - blast furnace blower: Respiratory Tract Infection Hx - blast furnace blower Hx Respiratory Tract Infection No 04/16/25 08:12 STOP Sleep Apnea STOP Sleep Apnea - blast furnace blower: STOP Sleep Apnea - blast furnace blower Hx Hypertension Yes: PER PT, CONTROLLED ON 04/16/25 08:12 MEDS Hx Sleep Apnea No 04/16/25 08:12 CPAP BIPAP Do you snore loudly (louder No 04/16/25 08:12 than talking or can be heard Do you often feel tired/ No 04/16/25 08:12 fatigued/ sleepy during daytime? Has anyone observed you stop No 04/16/25 08:12 breathing during sleep? STOP Results Negative 04/16/25 08:12 QUESTION #5 FULL TEXT : Do you snore loudly (louder than talking or can be heard through closed doors)? 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 Specify any problems Hx of Preganancy in last 3 No 04/16/25 08:12 Months Nurse Filling Out Transfusion LIZA 04/16/25 08:12 Questions: Date: 04/16/25 04/16/25 08:12 Time: 08:15 04/16/25 08:12 Patient unable to answer at this time (ie. 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 Hx Now No 04/16/25 08:12 Gestational Age (in weeks): EDC: Hx Hx Para Hx Section SAB No 04/16/25 08:12 [facility] Medical History (Updated 04/16/25 @ 08:23 by Roseanna London) Wears glasses Ambulates with cane OAB (overactive bladder) Non-smoker Hypertension History of stress test History of echocardiogram Cardiology follow-up encounter Right inguinal hernia Osteoarthritis of right knee Holter monitor, abnormal Syncope Strain of left knee Difficulty balancing Incontinence Knee pain Cancer of skin Arthritis Hx of fracture of wrist Right knee DJD Right knee pain Melanoma Basal cell carcinoma Chest pain Osteoarthritis Home Medications ???Medication ???Instructions ???Recorded ???Last Taken ???Type multivitamin (Daily Multi-Vitamin 1 tab PO DAILY 10/19/21 Unknown H istory tablet) [id number] [id number] 1 tab PO DAILY 02/15/23 Unknown Hi story [Citracal Plus] glucosamine HCl 500 mg tablet 500 mg PO DAILY 02/15/23 Unknown H istory (more content not included)... Normal [facility] Surgery Visit Reporton 03-27 Surgery Visit Report [facility] [address] [place] [address]. [address] [place] [address] OFFICE VISIT Date of Service: 03/27/25 MR#: [id number] Acct: [id number] Name: MOHINI OLIVARES Rep #: [id number] : 1940 Provider: Dr. Inge harris MD Age/Sex: 84/F Location: [facility] Status: Signed Intake Vital Signs 10/09/24 10:22 03/27/25 12:34 Height 5 ft 3.5 in 5 ft 4 in Weight: 161 lb 160 lb BMI 28.0 27.4 BP 147/68 H 158/68 H Blood Pressure Location Lt brachial Rt brachial Position Sitting Sitting Respiration 16 18 Pulse 50 L 49 L Pulse Source NIBP Monitor Temp 97.2 F L Temp Source Temporal Pulse Oximetry (%) 99 Oxygen Delivery Method room air Intake Visit Reasons: Inguinal hernia Chief Complaint: R inguinal hernia Is patient in pain?: No Allergies ampicillin Allergy (Unknown, Verified 03/27/25 12:35) unknown amoxicillin Allergy (Verified 03/27/25 12:35) Rash Medications ???Medication ???Instructions ???Recorded ???Confirmed ???Type multivitamin (Daily Multi-Vitamin 1 tab PO DAILY 10/19/21 03/27/25 History tablet) [id number]-[id number] 1 tab PO DAILY 02/15/23 03/27/25 H istory [Citracal Plus] glucosamine HCl 500 mg tablet 500 mg PO DAILY 02/15/23 03/27/25 History vibegron 75 mg tablet (Gemtesa) 75 mg PO DAILY 05/30/23 03/27/25 H istory lisinopril 10 mg tablet 10 mg PO DAILY #30 tabs 10/02/23 0 03/27/25 Rx amlodipine 10 mg tablet 10 mg PO QDAY 10/09/24 03/27/25 Hi story metoprolol succinate 25 mg 25 mg PO QDAY 10/09/24 03/27/25 Hi story tablet,extended release 24 hr naproxen 500 mg tablet 250 mg PO BID PRN 10/09/24 5 History Have you fallen in the past year?: No PFSH Medical History (Updated 03/27/25 @ 12:28 by Migdalia Pederson LPN) Right inguinal hernia Osteoarthritis of right knee Holter monitor, abnormal Syncope Strain of left knee Difficulty balancing Incontinence Knee pain Cancer of skin Arthritis Hx of fracture of wrist Right knee DJD Right knee pain Melanoma Basal cell carcinoma Chest pain Osteoarthritis Surgical History 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 Patient states her PCP noted about a year ago. Patient had a last 2 to 3 months she does notice a bulge there denies any pain. Patient is interested in having it repaired. Patient currently does have a Mohs surgery for the left side of her nose on April 22 and also has a melanoma on the back of her neck but will be evaluated at that time as well. Patient would prefer surgery after the Mohs surgery. ROS General General: No weight change, appetite, fatigue, colon cancer, breast cancer or weakness HEENT HEENT: No difficulty swallowing, eye injury, eye surgery, swollen glands or hoarseness Endo Endocrine: No thyroid disease, diabetes mellitus, thyroid cancer, Hair loss, heat intolerance or cold intolerance Skin Skin: No rash or changing moles Musc Musculoskeletal: Yes arthritis; No back problems, rheumatoid arthritis, gout or joint pain Cardio Cardiovascular: Yes high blood pressure; No murmur, pacemaker, heart disease, atrial fibrillation, heart attack, heart stent, palpitations, shortness of breath with exertion or chest pain Psych Psychiatric: No depression, anxiety or hearing voices Resp Respiratory: No shortness of breath, No sleep apnea, No cough, No COPD, No asthma, No emphysema and No wheezing Gastro Gastrointestinal: No abdominal pain, No nausea or vomiting, No diarrhea, No constipation, No blood in stool, No acid reflux, No hemorrhoids, No ulcers, No gallbladder problem and No black,tarry stools Saeid Hematologic: No blood thinners, No blood disorders, No bleeding, No anemia and No blood clots Neuro Neurologic: No numbness, No tingling and No weakness Exam Const General: cooperative, healthy appearing, comfortable and no acute distress [facility] Head: normocephalic and atraumatic Neck Neck: supple Resp Effort Inspection: normal respiratory effort Cardio Rate: regular rate GI Inspection: non-distended Palpation: soft, hernia (Right inguinal-reducible, (more content not included)... Normal [facility] Anion gap in Serum or Plasma Ordered By: Rey Hussein on 01-09-2025 Anion gap [Moles/Vol] 10 mmol/L 5-15 [facility] BUN/creatinine ratioOrdered By: Rey Hussein on 01-09-2025 Urea nitrogen/Creatinine [Mass ratio] 23.0 mg/mg High 10- [facility] Basic Metabolic Profile (BMP )on 01-09-2025 BUN/CRE 23.0 RATIO High - [facility] Comment on above: Performed By: #### L 500.4100, L500.2500 #### [facility] [address] [place], [address] Calcium [Mass/Vol] 9.1 mg/dL Normal 7.6-11.0 [facility] Comment on above: Performed By: #### L 500.4100, L500.2500 #### [facility] [address] [place], [address] Chloride [Moles/Vol] 106 mmol/L Normal 98-108 [facility] Comment on above: Performed By: #### L 500.4100, L500.2500 #### [facility] [address] [place], [address] CO2 [Moles/Vol] 26.3 mmol/L Normal 21.0-32.0 [facility] Comment on above: Performed By: #### L 500.4100, L500.2500 #### [facility] [address] [place], [address] Creatinine [Mass/Vol] 0.85 mg/dL Normal 0.70-1.20 [facility] Comment on above: Performed By: #### L 500.4100, L500.2500 #### [facility] [address] [place], [address] GAP 10 Normal 5-15 [facility] Comment on above: Performed By: #### L 500.4100, L500.2500 #### [facility] [address] [place], [address] GFR/1.73 sq M.predicted among non-blacks MDRD (S/P/Bld) [Vol rate/Area] 69 mL/min/{1.73_m2} Normal >60 [facility] Comment on above: Result Comment: mL/m in/1.73m2 CKD-EPI Creatinine Equation (2020) Performed By: #### L 500.4100, L500.2500 #### [facility] [address] [place], [address] Glucose [Mass/Vol] 102 mg/dL High 70-99 [facility] Comment on above: Performed By: #### L 500.4100, L500.2500 #### [facility] [address] [place], [address] Potassium [Moles/Vol] 4.6 mmol/L Normal 3.3-5.1 [facility] Comment on above: Performed By: #### L 500.4100, L500.2500 #### [facility] [address] [place], [address] Sodium [Moles/Vol] 142 mmol/L Normal 133-145 [facility] Comment on above: Performed By: #### L 500.4100, L500.2500 #### [facility] [address] [place], [address] Urea nitrogen [Mass/Vol] 20 mg/dL High 4-19 [facility] Comment on above: Performed By: #### L 500.4100, L500.2500 #### [facility] [address] [place], [address] Calculated very low density lipoprotein (VLDL) cholesterol measurementOrdered By: Rey Hussein on 01-09-2025 Calculated very low density lipoprotein (VLDL) cholesterol measurement 18 mg/dL 5-40 [facility] Carbon dioxide, total [Moles /volume] in Central venous bloodOrdered By: Rey Hussein on 01-09-2025 CO2 [Moles/Vol] 26.3 mmol/L 21.0-32.0 [facility] Chloride assayOrdered By: Carmelita Hussein on 01-09-2025 Chloride [Moles/Vol] 106 mmol/L 98-108 [facility] Glomerular filtration rate ( GFR) estimation/1.73 sq m using serum, plasma, or whole bOrdered By: Rey Hussein on 01-09-2025 GFR/1.73 sq M.predicted among non-blacks MDRD (S/P/Bld) [Vol rate/Area] 69 mL/min/{1.73_m2} >60 [facility] Comment on above: mL/min/1.73m2 CKD-EP I Creatinine Equation (2020) LDL calc ser/plasOrdered By: Rey Hussein on 01-09-2025 Cholesterol in LDL [Mass/Vol] 118 mg/dL [facility] Comment on above: Elxbequovr=967-295 m g/dL & Higher Zqdz=699 mg/dL or greater Lipid Profileon 01-09-2025 CHOL:HDL 3.74 Normal [facility] Comment on above: Performed By: #### L 500.4100, L500.2500 #### [facility] [address] [place], [place], [address] Cholesterol [Mass/Vol] 185 mg/dL Normal <=200 [facility] Comment on above: Result Comment: Chol esterol level, Desirable <200 mg/dL Borderline high cholesterol 200-239 mg/dL High cholesterol >=240 mg/dL Recommendations of the NCEP Adult Treatment Panel for the following risk-cutoff thresholds for the [place] population. Performed By: #### L 500.4100, L500.2500 #### [facility] [address] [place], [address] Cholesterol in HDL [Mass/Vol] 49 mg/dL Normal [facility] Comment on above: Result Comment: Le onal Cholesterol Education Program (NCEP) guidelines: <40 mg/dL: Low HDL-cholesterol (major risk factor for CHD) >= 60 mg/dL: High HDL-cholesterol (negative risk factor for CHD) HDL-cholesterol is affected by a number of factors, e.g. smoking, exercise, hormones, sex and age. Performed By: #### L 500.4100, L500.2500 #### [facility] [address] [place], [address] Cholesterol in LDL [Mass/Vol] 118 mg/dL Normal [facility] Comment on above: Result Comment: Bord tljzpf=951-772 mg/dL Higher Dmzt=035 mg/dL or greater Performed By: #### L 500.4100, L500.2500 #### [facility] [address] [place], [address] Cholesterol in VLDL [Mass/Vol] 18 mg/dL Normal 5-40 [facility] Comment on above: Performed By: #### L 500.4100, L500.2500 #### [facility] [address] [place], [address] Triglyceride [Mass/Vol] 89 mg/dL Normal [facility] Comment on above: Result Comment: The drugs N-Acetylcysteine and Metamizole may falsely depress this assay. Normal range: <150 mg/dL Borderline High: 150-199 mg/dL High: 200-499 mg/dL Very High: >500 mg/dL Performed By: #### L 500.4100, L500.2500 #### [facility] [address] [place], [address] Potassium measurement (mass/ volume)Ordered By: Rey Hussein on 01-09-2025 Potassium (Unsp spec) [Mass/Vol] 4.6 mmol/L 3.3-5.1 [facility] Screening total cholesterol/ high density lipoprotein (HDL) cholesterol ratioOrdered By: Rey Hussein on 01-09-2025 Cholesterol.total/Sita sterol in HDL [Mass ratio] 3.74 {ratio} [facility] Serum creatinine measurement (mass/volume)Ordered By: Rey Hussein on 01-09-2025 Creatinine [Mass/Vol] 0.85 mg/dL 0.70-1.20 [facility] Serum glucose measurement (m ass/volume)Ordered By: Rey Hussein on 01-09-2025 Glucose [Mass/Vol] 102 mg/dL High 70-99 [facility] Serum or plasma calcium jey urement (mass/volume)Ordered By: Rey Hussein on 01-09-2025 Calcium [Mass/Vol] 9.1 mg/dL 7.6-11.0 [facility] Serum or plasma cholesterol in HDL measurement (mass/volume)Ordered By: Rey Hussein on 01-09-2025 Cholesterol in HDL [Mass/Vol] 49 mg/dL >40 [facility] Comment on above: National Cholesterol Education Program (NCEP) guidelines:<40 mg/dL: Low HDL-cholesterol (major risk factor for CHD)>= 60 mg/dL: High HDL-cholesterol (negative risk factor for CHD)HDL-cholesterol is affected by a number of factors, e.g. smoking, exercise, hormones, sex and age. Serum or plasma cholesterol measurement (mass/volume)Ordered By: Rey Hussein on 01-09-2025 Cholesterol [Mass/Vol] 185 mg/dL <201 [facility] Comment on above: Cholesterol level, D esirable <200 mg/dLBorderline high cholesterol 200-239 mg/dLHigh cholesterol >=240 mg/dLRecommendations of the NCEP Adult Treatment Panel for the following risk-cutoff thresholds for the [place] population. Serum or plasma urea nitroge n measurement (mass/volume)Ordered By: Rey Hussein on 01-09-2025 Urea nitrogen [Mass/Vol] 20 mg/dL High 4-19 [facility] Sodium levelOrdered By: Rey Hussein on 01-09-2025 Sodium [Moles/Vol] 142 mmol/L 133-145 [facility] Triglycerides measurementOrd ered By: Rey Hussein on 01-09-2025 Triglyceride [Mass/Vol] 89 mg/dL <199 [facility] Comment on above: The drugs N-Acetylcy steine and Metamizole may falsely depress this assay. Normal range: <150 mg/dLBorderline High: 150-199 mg/dLHigh: 200-499 mg/dLVery High: >500 mg/dL 12 Lead EKG performed by [facility] on 10-09-2024 12 Lead EKG performed by [facility] [address] [place] [address] 12 Lead EKG performed by [facility] 10/09/24 1100 MR#: [id number] Acct: [id number] Name: MOHINI OLIVARES Rep #: [id number] : 1940 84 From: Spike Aranda NP SAP BW ARCHITECT-C Attending Dr: WAI Ghosh Status: DEP AMB Ordering Dr: Spike Aranda NP SAP BW ARCHITECT-C Date: 10/09/24 Location: [facility] [place] Sex: F C Admitted: BMS/12 Lead EKG performed by [facility] ECG Report Interpretation ---Sinus Bradycardia WITHIN NORMAL LIMITSElectronically signed on 10/13/2024 at 15:28 by Derrick Potter Software Version [id number] 10/13/24 1531 Date Spike Aranda SAP BW ARCHITECT SAP BW ARCHITECT-C CC: Dr. Rey Hussein MD Date Dictated: 10/09/24 1100 Date Transcribed: 10/09/24 1100 Family Practice Nurse Practitioner: LESLIE Signed Normal [facility] Cardiology Visit Reporton Cardiology Visit Report [facility] [address] [place], [place] [address] OFFICE VISIT Date of Service: 10/09/24 MR#: [id number] Acct: [id number] Name: MOHINI OLIVARES Rep #: [id number] : 1940 Provider: WAI granado Age/Sex: 84/F Location[place] [facility] Status: Signed HPI HPI History of Present Illness Details: This is a pleasant 84-year-old lady, who presents to the office today for a cardiovascular follow-up visit. She has no previous cardiac history, who said that she had a near syncopal episode a few months ago. She has difficulty in describing exactly what happened but does not think that she blacked out completely. As part of her work-up she had a 7-day monitor placed which demonstrated an average heart rate of 59 bpm, minimum of 39 bpm and maximal 144 bpm all in sinus rhythm. There were less than 1% of the beats noted with a rate less than 40 and less than 1% with rates more than 100. She did have some episodes of narrow complex tachycardia the longest being 23 beats at a rate of approximately 132 bpm and the fastest being 8 beats with an average rate of 138 bpm. She does not think that she felt any of the above. She did undergo a stress echocardiogram 3 years ago with no evidence of ischemia and she is on no rate limiting medications. Her echocardiogram from 03/07/2023 demonstrated an ejection fraction of 65%, and stage I diastolic dysfunction. She denies chest, arm, jaw, or neck discomfort. She denies palpitations. She denies bilateral lower extremity edema. She denies claudication. She denies shortness of breath with activity, shortness of breath at rest, orthopnea, or PND. She denies chronic cough. She denies significant, sudden weight gain. She denies lightheadedness, dizziness, near-syncope, or syncope. She denies blood in urine, blood in stool, or epistaxis. He denies fever with chills. She denies myalgia. She denies fatigue. Her exercise level has remained stable. Intake Vital Signs 08/29/23 13:24 10/02/23 12:33 10/09/24 10:22 Height 5 ft 3 in 5 ft 3.5 in 5 ft 3.5 in Weight: 161 lb BMI 28.0 BP 147/68 H Blood Pressure Location Lt brachial Position Sitting Respiration 16 Pulse 50 L Pulse Source NIBP Intake Visit Reasons: 1 Y [employer]U [employer]er Required: No Is patient in pain?: No Allergies ampicillin Allergy (Unknown, Verified 10/09/24 10:31) unknown amoxicillin Allergy (Verified 10/09/24 10:31) Rash Medications ???Medication ???Instructions ???Recorded ???Confirmed ???Type multivitamin (Daily Multi-Vitamin 1 tab PO DAILY 10/19/21 10/09/24 History tablet) [id number]-hoo-toe [id number] 1 tab PO DAILY 02/15/23 10/09/24 H istory [Citracal Plus] glucosamine HCl 500 mg tablet 500 mg PO DAILY 02/15/23 10/09/24 History vibegron 75 mg tablet (Gemtesa) 75 mg PO DAILY 05/30/23 10/09/24 H istory lisinopril 10 mg tablet 10 mg PO DAILY #30 tabs 10/02/23 0 10/09/24 Rx amlodipine 10 mg tablet 10 mg PO QDAY 10/09/24 10/09/24 Hi story metoprolol succinate 25 mg 25 mg PO QDAY 10/09/24 10/09/24 Hi story tablet,extended release 24 hr naproxen 500 mg tablet 250 mg PO BID PRN 10/09/24 5 History Ejection fraction %: 65 Have you fallen in the past year?: No PFSH Medical History Osteoarthritis of right knee Holter monitor, abnormal Syncope Strain of left knee Difficulty balancing Incontinence Knee pain Cancer of skin Arthritis Hx of fracture of wrist Right knee DJD Right knee pain Melanoma Basal cell carcinoma Chest pain Osteoarthritis Surgical History 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) History of dilatation and curettage History of cataract extraction Family History Mother Hypertension Heart disease Cancer Melanoma Father Emphysema of lung Grandmother Diabetes Grandfather Myocardial infarction Brother Melanoma Other Right knee DJD Social History Smoking Status: Never smoker alcohol intake: never substance use type: does not use caffeine: Yes (Occasionally) ROS Const Const: Negative for fatigue or weakness Eyes Eyes: Negative for change in vision ENT ENT: Negative for dizziness or balance problems Cardio Chest Pain: No Palpitations: No Edema: Right (Mild in right leg (knee replacement)) Muscle aches with walking: None Resp Respiratory: Negative for SOB with activity, SOB at rest or SOB orthopnea SOB lying down GI GI: Negative nausea or heartburn : Negative for hematuria or frequent nighttime urination/ nocturia Musc Musc: Negative for balance problems Skin Skin: Negative non-healing lesions or rash (more content not included)... Normal [facility] Basic Metabolic Profile (BMP )on 07-11-2024 BUN/CRE 19.4 RATIO Normal 10-20 [facility] Comment on above: Performed By: #### L 500.4100, L500.2500 #### [facility] [address] [place], [address] CA,Total 9.7 mg/dL Normal 8.5-10.1 [facility] Comment on above: Performed By: #### L 500.4100, L500.2500 #### [facility] [address] [place], [address] Chloride [Moles/Vol] 108 mmol/L High 98-107 [facility] Comment on above: Performed By: #### L 500.4100, L500.2500 #### [facility] [address] [place], [address] CO2 [Moles/Vol] 27.0 mmol/L Normal 21.0-32.0 [facility] Comment on above: Performed By: #### L 500.4100, L500.2500 #### [facility] [address] [place], [address] Creatinine [Mass/Vol] 0.88 mg/dL Normal 0.55-1.02 [facility] Comment on above: Result Comment: The validity of the calculated GFR GFRAA in patients over 70 years has not been determined. Clinical correlation is essential. Performed By: #### L 500.4100, L500.2500 #### [facility] [address] [place], [address] EST GFR - AA 79 mL/min Normal >60 [facility] Comment on above: Result Comment: Afri can [place] GFR Calc Performed By: #### L 500.4100, L500.2500 #### [facility] [address] [place], [address] GAP 7 Normal 5-15 [facility] Comment on above: Performed By: #### L 500.4100, L500.2500 #### [facility] [address] [place], [address] GFR/1.73 sq M.predicted among non-blacks MDRD (S/P/Bld) [Vol rate/Area] 66 mL/min/{1.73_m2} Normal >60 [facility] Comment on above: Result Comment: Non- GFR Calc Performed By: #### L 500.4100, L500.2500 #### [facility] [address] [place], [address] Glucose [Mass/Vol] 99 mg/dL Normal 74-106 [facility] Comment on above: Performed By: #### L 500.4100, L500.2500 #### [facility] [address] [place], [address] Potassium [Moles/Vol] 3.8 mmol/L Normal 3.5-5.1 [facility] Comment on above: Performed By: #### L 500.4100, L500.2500 #### [facility] [address] [place], [address] Sodium [Moles/Vol] 142 mmol/L Normal 136-145 [facility] Comment on above: Performed By: #### L 500.4100, L500.2500 #### [facility] [address] [place], [address] Urea nitrogen [Mass/Vol] 17 mg/dL Normal 7-18 [facility] Comment on above: Performed By: #### L 500.4100, L500.2500 #### [facility] [address] [place], [address] Lipid Profileon 07-11-2024 Cholesterol [Mass/Vol] 191 mg/dL Normal 200 [facility] Comment on above: Result Comment: <200 mg/dL Desirable 200-240 mg/dL Borderline >240 mg/dL High Risk Performed By: #### L 500.4100, L500.2500 #### [facility] [address] [place], [address] Cholesterol in HDL [Mass/Vol] 53 mg/dL Normal [facility] Comment on above: Result Comment: The drugs N-Acetylcysteine and Metamizole may falsely depress this assay. Reference Range HDL <40 mg/dL Low HDL Cholesterol HDL >or= 60 mg/dL High HDL Cholesterol Performed By: #### L 500.4100, L500.2500 #### [facility] [address] [place], [address] Cholesterol in LDL [Mass/Vol] 116 mg/dL Normal 0-130 [facility] Comment on above: Performed By: #### L 500.4100, L500.2500 #### [facility] [address] [place], [address] Cholesterol in VLDL [Mass/Vol] 22 mg/dL Normal 5-40 [facility] Comment on above: Performed By: #### L 500.4100, L500.2500 #### [facility] [address] [place], [address] Triglyceride [Mass/Vol] 110 mg/dL Normal [facility] Comment on above: Result Comment: The drugs N-Acetylcysteine and Metamizole may falsely depress this assay. Serum Triglycerides Reference Interval Normal <150 mg/dL Borderline high 150 - 199 mg/dL High 200 - 499 mg/dL Very High > or = 500 mg/dL Performed By: #### L 500.4100, L500.2500 #### [facility] [address] [place], [address] ABIDon 05-01-2024 Antibody ID Anti-M Invalid Interpretation Code [facility] Comment on above: Order Comment: Order ed by Discern Performed By: #### G FR, ALB, ANEU, BMP, ADIFF, CBC #### [address] [address] .Auto Diffon 04-30-2024 Basophil, Absolute 0.0 10 3/mcL Normal 0.0-0.2 [facility] Comment on above: Performed By: #### B MP, GFR, CBC, ADIFF, ANEU #### [address] [address] Basophils/100 WBC (Bld) 0.2 % Normal 0.0-2.5 [facility] Comment on above: Performed By: #### B MP, GFR, CBC, ADIFF, ANEU #### [address] [address] Eosinophil, Absolute 0.0 10 3/mcL Normal 0.0-0.7 [facility] Comment on above: Performed By: #### B MP, GFR, CBC, ADIFF, ANEU #### [address] [address] Eosinophils/100 WBC (Bld) 0.0 % Normal 0.0-7.0 [facility] Comment on above: Performed By: #### B MP, GFR, CBC, ADIFF, ANEU #### [address] [address] Lymphocyte, Absolute 0.8 10 3/mcL Low 0.9-4.3 [facility] Comment on above: Performed By: #### B MP, GFR, CBC, ADIFF, ANEU #### [address] [address] Lymphocytes/100 WBC (Bld) 5.0 % Low 20.0-40.0 [facility] Comment on above: Performed By: #### B MP, GFR, CBC, ADIFF, ANEU #### [address] [address] Monocyte, Absolute 0.9 10 3/mcL Normal 0.1-1.4 [facility] Comment on above: Performed By: #### B MP, GFR, CBC, ADIFF, ANEU #### [address] [address] Monocytes/100 WBC (Bld) 5.9 % Normal 2.0-13.0 [facility] Comment on above: Performed By: #### B MP, GFR, CBC, ADIFF, ANEU #### [address] [address] Neutrophils/100 WBC (Bld) 88.9 % High 50.0-75.0 [facility] Comment on above: Performed By: #### B MP, GFR, CBC, ADIFF, ANEU #### [address] [address] .GFRon 04-30-2024 GFR 71 ml/min/1.73sqm Normal [facility] Comment on above: Result Comment: GFR Population mean for , Non- Americans Ages 20-29 = 116 mL/min/1.73 sq.m. Ages 30-39 = 107 mL/min/1.73 sq.m. Ages 40-49 = 99 mL/min/1.73 sq.m. Ages 50-59 = 93 mL/min/1.73 sq.m. Ages 60-69 = 85 mL/min/1.73 sq.m. Ages 70+ = 75 mL/min/1.73 sq.m. Chronic Kidney Disease: Less than 60 mL/min/1.73 square meters End Stage Renal Disease: Less than 15 mL/min/1.73 square meters Performed By: #### G FR, ALB, ANEU, BMP, ADIFF, CBC #### [address] [address] GFR Non- 59 ml/min/1.73sqm Normal [facility] Comment on above: Result Comment: GFR Population mean for , Non- Americans Ages 20-29 = 116 mL/min/1.73 sq.m. Ages 30-39 = 107 mL/min/1.73 sq.m. Ages 40-49 = 99 mL/min/1.73 sq.m. Ages 50-59 = 93 mL/min/1.73 sq.m. Ages 60-69 = 85 mL/min/1.73 sq.m. Ages 70+ = 75 mL/min/1.73 sq.m. Chronic Kidney Disease: Less than 60 mL/min/1.73 square meters End Stage Renal Disease: Less than 15 mL/min/1.73 square meters Performed By: #### G FR, ALB, ANEU, BMP, ADIFF, CBC #### [address] [address] .NEUABSon 04-30-2024 Neutrophil, Absolute 14.3 10 3/mcL High 2.3-8.1 [facility] Comment on above: Performed By: #### B MP, GFR, CBC, ADIFF, ANEU #### [address] [address] AGTYon 04-30-2024 Antigen Type M+ Invalid Interpretation Code [facility] Comment on above: Performed By: #### G FR, ALB, ANEU, BMP, ADIFF, CBC #### [address] [address] BMPon 04-30-2024 BUN/Creatinine Ratio 20 ratio Normal 7-27 [facility] Comment on above: Performed By: #### G FR, ALB, ANEU, BMP, ADIFF, CBC #### [address] [address] Calcium [Mass/Vol] 8.7 mg/dL Normal 8.4-10.2 [facility] Comment on above: Performed By: #### G FR, ALB, ANEU, BMP, ADIFF, CBC #### [address] [address] Chloride [Moles/Vol] 107 mmol/L Normal 98-107 [facility] Comment on above: Performed By: #### G FR, ALB, ANEU, BMP, ADIFF, CBC #### [address] [address] CO2 [Moles/Vol] 25 mmol/L Normal 23-31 [facility] Comment on above: Performed By: #### G FR, ALB, ANEU, BMP, ADIFF, CBC #### [address] [address] Creatinine [Mass/Vol] 0.92 mg/dL Normal 0.55-1.02 [facility] Comment on above: Result Comment: Test ing performed on Siemens Dimension EXL analyzer using a modified kinetic Ras technique. Performed By: #### G FR, ALB, ANEU, BMP, ADIFF, CBC #### [address] [address] Electrolyte Balance 11.0 mEq/L Normal 4.0-15.0 [facility] Comment on above: Performed By: #### G FR, ALB, ANEU, BMP, ADIFF, CBC #### [address] [address] Glucose [Mass/Vol] 138 mg/dL High 83-110 [facility] Comment on above: Performed By: #### G FR, ALB, ANEU, BMP, ADIFF, CBC #### [address] [address] Potassium [Moles/Vol] 5.0 mmol/L Normal 3.5-5.1 [facility] Comment on above: Performed By: #### G FR, ALB, ANEU, BMP, ADIFF, CBC #### [address] [address] Sodium [Moles/Vol] 143 mmol/L Normal 136-145 [facility] Comment on above: Performed By: #### G FR, ALB, ANEU, BMP, ADIFF, CBC #### [address] [address] Urea nitrogen [Mass/Vol] 18 mg/dL Normal 7-18 [facility] Comment on above: Performed By: #### G FR, ALB, ANEU, BMP, ADIFF, CBC #### [address] [address] CBCon 04-30-2024 Erythrocyte distribution width (RBC) [Ratio] 13.3 % Normal 11.5-15.5 [facility] Comment on above: Performed By: #### B MP, GFR, CBC, ADIFF, ANEU #### [place] [address] Hematocrit (Bld) [Volume fraction] 35.7 % Normal 34.0-46.0 [facility] Comment on above: Performed By: #### B MP, GFR, CBC, ADIFF, ANEU #### [place] [address] Hgb 12.0 G/dL Normal 12.0-16.0 [facility] Comment on above: Performed By: #### B MP, GFR, CBC, ADIFF, ANEU #### [place] [address] MCH (RBC) [Entitic mass] 29.7 pg Normal 27.0-33.0 [facility] Comment on above: Performed By: #### B MP, GFR, CBC, ADIFF, ANEU #### [place] [address] MCHC 33.5 G/dL Normal 32.0-36.0 [facility] Comment on above: Performed By: #### B MP, GFR, CBC, ADIFF, ANEU #### [place] [address] MCV (RBC) [Entitic vol] 88.7 fL Normal 80.0-99.0 [facility] Comment on above: Performed By: #### B MP, GFR, CBC, ADIFF, ANEU #### [place] [address] Platelet 189 10 3/mcL Normal 150-450 [facility] Comment on above: Performed By: #### B MP, GFR, CBC, ADIFF, ANEU #### [place] [address] Platelet mean volume (Bld) [Entitic vol] 9.6 fL Normal 6.6-10.5 [facility] Comment on above: Performed By: #### B MP, GFR, CBC, ADIFF, ANEU #### [place] [address] [place], [place] [address] RBC 4.02 10 6/mcL Low 4.10-5.30 [facility] Comment on above: Performed By: #### B MP, GFR, CBC, ADIFF, ANEU #### [place] [address] [place], [place] [address] WBC 16.1 10 3/mcL High 4.5-10.8 [facility] Comment on above: Performed By: #### B MP, GFR, CBC, ADIFF, ANEU #### [place] [address] [place], [place] [address] LABORATORYOrdered By: SYSTEM SYSTEM on 04-30-2024 Basophils (Bld) [#/Vol] 0.0 103/mcL Normal 0.0 - 0.2 10^3/mcL AO Workflow SS Basophils/100 WBC (Bld) 0.2 % Normal 0.0 - 2.5 % AO Workflow SS Calcium [Mass/Vol] 8.7 mg/dL Normal 8.4 - 10. 2 mg/dL AO ADM SS Chloride [Moles/Vol] 107 mmol/L Normal 98 - 10 7 mmol/L AO ADM SS CO2 [Moles/Vol] 25 mmol/L Normal 23 - 31 mmol/L AO ADM SS Creatinine [Mass/Vol] 0.92 mg/dL Normal 0.55 - 1.02 mg/dL AO ADM SS Comment on above: Interpretive Data: T esting performed on Siemens Dimension EXL analyzer using a modified kinetic Ras technique. Electrolyte Balance 11.0 mEq/L Normal 4.0 - 15 .0 mEq/L AO ADM SS Eosinophil, Absolute 0.0 103/mcL Normal 0.0 - 0 .7 10^3/mcL AO Workflow SS Eosinophils/100 WBC (Bld) 0.0 % Normal 0.0 - 7.0 % AO Workflow SS Erythrocyte distribution width (RBC) [Ratio] 13.3 % Normal 11.5 - 15.5 % AO Workflow SS GFR/1.73 sq M.predicted among blacks MDRD (S/P/Bld) [Vol rate/Area] 71 ml/min/1.73sqm Invalid Interpretation Code [facility] Comment on above: Interpretive Data: GFR Population mean for , Non- Americans Ages 20-29 = 116 mL/min/1.73 sq.m. Ages 30-39 = 107 mL/min/1.73 sq.m. Ages 40-49 = 99 mL/min/1.73 sq.m. Ages 50-59 = 93 mL/min/1.73 sq.m. Ages 60-69 = 85 mL/min/1.73 sq.m. Ages 70+ = 75 mL/min/1.73 sq.m. Chronic Kidney Disease: Less than 60 mL/min/1.73 square meters End Stage Renal Disease: Less than 15 mL/min/1.73 square meters GFR/1.73 sq M.predicted among non-blacks MDRD (S/P/Bld) [Vol rate/Area] 59 ml/min/1.73sqm Invalid Interpretation Code AO [facility] Comment on above: Interpretive Data: GFR Population mean for , Non- Americans Ages 20-29 = 116 mL/min/1.73 sq.m. Ages 30-39 = 107 mL/min/1.73 sq.m. Ages 40-49 = 99 mL/min/1.73 sq.m. Ages 50-59 = 93 mL/min/1.73 sq.m. Ages 60-69 = 85 mL/min/1.73 sq.m. Ages 70+ = 75 mL/min/1.73 sq.m. Chronic Kidney Disease: Less than 60 mL/min/1.73 square meters End Stage Renal Disease: Less than 15 mL/min/1.73 square meters Glucose [Mass/Vol] 138 mg/dL High 83 - 110 mg/dL AO ADM SS Hematocrit (Bld) [Volume fraction] 35.7 % Normal 34.0 - 46.0 % AO Workflow SS Hemoglobin (Bld) [Mass/Vol] 12.0 G/dL Normal 12.0 - 16.0 G/dL AO Workflow SS Lymphocytes (Bld) [#/Vol] 0.8 103/mcL Low 0.9 - 4.3 10^3/mcL AO Workflow SS Lymphocytes/100 WBC (Bld) 5.0 % Low 20.0 - 40.0 % AO Workflow SS MCH (RBC) [Entitic mass] 29.7 pg Normal 27.0 - 33.0 pg AO Workflow SS MCHC 33.5 G/dL Normal 32.0 - 36.0 G/dL AO Workflow SS MCV (RBC) [Entitic vol] 88.7 fL Normal 80.0 - 99.0 fL AO Workflow SS Monocytes (Bld) [#/Vol] 0.9 103/mcL Normal 0.1 - 1.4 10^3/mcL AO Workflow SS Monocytes/100 WBC (Bld) 5.9 % Normal 2.0 - 13.0 % AO Workflow SS Neutrophils (Bld) [#/Vol] 14.3 103/mcL High 2.3 - 8.1 10^3/mcL AO Workflow SS Neutrophils/100 WBC (Bld) 88.9 % High 50.0 - 75.0 % AO Workflow SS Platelet mean volume (Bld) [Entitic vol] 9.6 fL Normal 6.6 - 10.5 fL AO Workflow SS Platelets (Bld) [#/Vol] 189 103/mcL Normal 150 - 450 10^3/mcL AO Workflow SS Potassium [Moles/Vol] 5.0 mmol/L Normal 3.5 - 5.1 mmol/L AO ADM SS RBC (Bld) [#/Vol] 4.02 106/mcL Low 4.10 - 5.3 0 10^6/mcL AO Workflow SS Sodium [Moles/Vol] 143 mmol/L Normal 136 - 145 mmol/L AO ADM SS Urea nitrogen [Mass/Vol] 18 mg/dL Normal 7 - 18 mg/dL AO ADM SS Urea nitrogen/Creatinine [Mass ratio] 20 ratio Normal 7 - 27 ratio AO ADM SS WBC (Bld) [#/Vol] 16.1 103/mcL High 4.5 - 10.8 10^3/mcL AO Workflow SS US ANESTHESIA BLOCKon 2023 US ANESTHESIA BLOCK ORIGINAL Images acquired, not reported on this accession number. Normal [facility] ABO/Rh (Gel)on 04-29-2024 ABO/Rh Interp Positive Invalid Interpretation Code [facility] Comment on above: Performed By: #### G FR, ALB, ANEU, BMP, ADIFF, CBC #### [facility] [address] [place], [place] [address] ABS (Gel)on 04-29-2024 ABSC Interp (Gel) Positive Normal [facility] Comment on above: Performed By: #### G FR, ALB, ANEU, BMP, ADIFF, CBC #### [facility] [address] [place], [place] [address] AUTOCon 04-29-2024 Auto Control Negative Normal [facility] Comment on above: Order Comment: Order ed by Discern Performed By: #### G FR, ALB, ANEU, BMP, ADIFF, CBC #### [facility] [address] [place], [place] [address] LABORATORYOrdered By: Mylene hassan on 04-29-2024 ABO and Rh group Nom (Bld) Blood group A Rh(D) positive Invalid Interpretation Code AO BB Auto SS Blood group antibody screen Ql Positive ABSC (04/29/24 8:42 AM) Normal AO BB Auto SS Indirect antiglobulin test.IgG specific reagent Ql Negative (04/29/24 8:42 AM) Normal AH BB Manual SS Mg Ag Ql (RBC) M+ Invalid Interpretation Code AH BB Manual SS Inconclusive Invalid Interpretation Code AH BB Manual SS XR KNEE 1 OR 2 VIEWS RIGHTon 04-29-2024 XR KNEE 1 OR 2 VIEWS RIGHT ORIGINAL EXAMINATION: TWO XRAY VIEWS OF THE RIGHT KNEE 04/29/2024 1:00 pm COMPARISON: None. HISTORY: ORDERING SYSTEM PROVIDED HISTORY: Reason for Exam: Status Post Arthroplasty FINDINGS: New total right knee arthroplasty site appears intact. No postprocedural periprosthetic fracture is seen. There is overlying subcutaneous emphysema and fluid within the suprapatellar bursa. IMPRESSION: Total right knee arthroplasty with expected postoperative changes. Interpreted by: Dagoberto Gerardo DO Preliminary Report By: Dagoberto Gerardo DO Electronically signed By Dagoberto Gerardo DO Dictated Date: 04/29/2024 1:17:08 PM Prelim Date: 04/29/2024 1:18:20 PM Sign Date: 04/29/2024 1:18:20 PM Ordering Provider: LILLY HAND Normal [facility] ABO/Rh (Gel)on 04-11-2024 ABO/Rh Interp Positive Invalid Interpretation Code [facility] Comment on above: Performed By: #### G FR, ALB, ANEU, BMP, ADIFF, CBC #### [address] [address] ABS (Gel)on 04-11-2024 ABSC Interp (Gel) Negative Normal [facility] Comment on above: Performed By: #### G FR, ALB, ANEU, BMP, ADIFF, CBC #### [address] [address] .Auto Diffon 04-10-2024 Basophil, Absolute 0.1 10 3/mcL Normal 0.0-0.2 [facility] Comment on above: Performed By: #### G FR, ALB, ANEU, BMP, ADIFF, CBC #### [address] [address] Basophils/100 WBC (Bld) 0.9 % Normal 0.0-2.5 [facility] Comment on above: Performed By: #### G FR, ALB, ANEU, BMP, ADIFF, CBC #### [address] [address] Eosinophil, Absolute 0.1 10 3/mcL Normal 0.0-0.4 [facility] Comment on above: Performed By: #### G FR, ALB, ANEU, BMP, ADIFF, CBC #### [address] [address] Eosinophils/100 WBC (Bld) 1.3 % Normal 0.0-7.0 [facility] Comment on above: Performed By: #### G FR, ALB, ANEU, BMP, ADIFF, CBC #### [address] [address] Lymphocyte, Absolute 0.7 10 3/mcL Low 0.8-3.9 [facility] Comment on above: Performed By: #### G FR, ALB, ANEU, BMP, ADIFF, CBC #### [address] [address] Lymphocytes/100 WBC (Bld) 11.1 % Normal 10.0-50.0 [facility] Comment on above: Performed By: #### G FR, ALB, ANEU, BMP, ADIFF, CBC #### [address] [address] Monocyte, Absolute 0.6 10 3/mcL Normal 0.2-1.0 [facility] Comment on above: Performed By: #### G FR, ALB, ANEU, BMP, ADIFF, CBC #### [address] [address] Monocytes/100 WBC (Bld) 9.1 % Normal 1.7-13.0 [facility] Comment on above: Performed By: #### G FR, ALB, ANEU, BMP, ADIFF, CBC #### [address] [address] Neutrophils/100 WBC (Bld) 77.6 % Normal 37.0-80.0 [facility] Comment on above: Performed By: #### G FR, ALB, ANEU, BMP, ADIFF, CBC #### [address] [address] .GFRon 04-10-2024 GFR 66 ml/min/1.73sqm [facility] Comment on above: Result Comment: GFR Population mean for , Non- Americans Ages 20-29 = 116 mL/min/1.73 sq.m. Ages 30-39 = 107 mL/min/1.73 sq.m. Ages 40-49 = 99 mL/min/1.73 sq.m. Ages 50-59 = 93 mL/min/1.73 sq.m. Ages 60-69 = 85 mL/min/1.73 sq.m. Ages 70+ = 75 mL/min/1.73 sq.m. Chronic Kidney Disease: Less than 60 mL/min/1.73 square meters End Stage Renal Disease: Less than 15 mL/min/1.73 square meters Performed By: #### G FR, ALB, ANEU, BMP, ADIFF, CBC #### [address] [address] GFR Non- 54 ml/min/1.73sqm Normal [facility] Comment on above: Result Comment: GFR Population mean for , Non- Americans Ages 20-29 = 116 mL/min/1.73 sq.m. Ages 30-39 = 107 mL/min/1.73 sq.m. Ages 40-49 = 99 mL/min/1.73 sq.m. Ages 50-59 = 93 mL/min/1.73 sq.m. Ages 60-69 = 85 mL/min/1.73 sq.m. Ages 70+ = 75 mL/min/1.73 sq.m. Chronic Kidney Disease: Less than 60 mL/min/1.73 square meters End Stage Renal Disease: Less than 15 mL/min/1.73 square meters Performed By: #### G FR, ALB, ANEU, BMP, ADIFF, CBC #### [address] [address] .NEUABSon 04-10-2024 Neutrophil, Absolute 5.1 10 3/mcL Normal 2.9-6.2 [facility] Comment on above: Performed By: #### G FR, ALB, ANEU, BMP, ADIFF, CBC #### [address] [address] ALBon 04-10-2024 Albumin Level 4.1 G/dL Normal 3.4-4.8 [facility] Comment on above: Performed By: #### G FR, ALB, ANEU, BMP, ADIFF, CBC #### [address] [address] BMPon 04-10-2024 BUN/Creatinine Ratio 17 ratio Normal 7-27 [facility] Comment on above: Performed By: #### G FR, ALB, ANEU, BMP, ADIFF, CBC #### [address] [address] Calcium [Mass/Vol] 9.2 mg/dL Normal 8.4-10.2 [facility] Comment on above: Performed By: #### G FR, ALB, ANEU, BMP, ADIFF, CBC #### [address] [address] Chloride [Moles/Vol] 102 mmol/L Normal 98-107 [facility] Comment on above: Performed By: #### G FR, ALB, ANEU, BMP, ADIFF, CBC #### [address] [address] CO2 [Moles/Vol] 29 mmol/L Normal 23-31 [facility] Comment on above: Performed By: #### G FR, ALB, ANEU, BMP, ADIFF, CBC #### [address] [address] Creatinine [Mass/Vol] 0.98 mg/dL Normal 0.55-1.02 [facility] Comment on above: Result Comment: Test ing performed on Siemens Dimension EXL analyzer using a modified kinetic Ras technique. Performed By: #### G FR, ALB, ANEU, BMP, ADIFF, CBC #### [address] [address] Electrolyte Balance 8.0 mEq/L Normal 4.0-15.0 [facility] Comment on above: Performed By: #### G FR, ALB, ANEU, BMP, ADIFF, CBC #### [address] [address] Glucose [Mass/Vol] 129 mg/dL High 83-110 [facility] Comment on above: Performed By: #### G FR, ALB, ANEU, BMP, ADIFF, CBC #### [address] [address] Potassium [Moles/Vol] 4.2 mmol/L Normal 3.5-5.1 [facility] Comment on above: Performed By: #### G FR, ALB, ANEU, BMP, ADIFF, CBC #### [address] [address] Sodium [Moles/Vol] 139 mmol/L Normal 136-145 [facility] Comment on above: Performed By: #### G FR, ALB, ANEU, BMP, ADIFF, CBC #### [address] [address] Urea nitrogen [Mass/Vol] 17 mg/dL Normal 7-18 [facility] Comment on above: Performed By: #### G FR, ALB, ANEU, BMP, ADIFF, CBC #### [address] [address] CBCon 04-10-2024 Erythrocyte distribution width (RBC) [Ratio] 13.6 % Normal 11.5-14.5 [facility] Comment on above: Order Comment: Pre-A dmission Testing Performed By: #### G FR, ALB, ANEU, BMP, ADIFF, CBC #### [address] [address] Hematocrit (Bld) [Volume fraction] 40.7 % Normal 37.0-47.0 [facility] Comment on above: Order Comment: Pre-A dmission Testing Performed By: #### G FR, ALB, ANEU, BMP, ADIFF, CBC #### [place] [address] Hgb 13.8 G/dL Normal 12.0-16.0 [facility] Comment on above: Order Comment: Pre-A dmission Testing Performed By: #### G FR, ALB, ANEU, BMP, ADIFF, CBC #### [address] [address] MCH (RBC) [Entitic mass] 30.4 pg Normal 27.0-31.2 [facility] Comment on above: Order Comment: Pre-A dmission Testing Performed By: #### G FR, ALB, ANEU, BMP, ADIFF, CBC #### [address] [address] MCHC 33.8 G/dL Normal 33.0-37.0 [facility] Comment on above: Order Comment: Pre-A dmission Testing Performed By: #### G FR, ALB, ANEU, BMP, ADIFF, CBC #### [place] [address] MCV (RBC) [Entitic vol] 89.8 fL Normal 80.0-94.0 [facility] Comment on above: Order Comment: Pre-A dmission Testing Performed By: #### G FR, ALB, ANEU, BMP, ADIFF, CBC #### [address] [address] Platelet 159 10 3/mcL Normal 130-400 [facility] Comment on above: Order Comment: Pre-A dmission Testing Performed By: #### G FR, ALB, ANEU, BMP, ADIFF, CBC #### [address] [address] Platelet mean volume (Bld) [Entitic vol] 9.8 fL Normal 7.4-10.4 [facility] Comment on above: Order Comment: Pre-A dmission Testing Performed By: #### G FR, ALB, ANEU, BMP, ADIFF, CBC #### [address] [address] RBC 4.53 10 6/mcL Normal 4.20-5.40 [facility] Comment on above: Order Comment: Pre-A dmission Testing Performed By: #### G FR, ALB, ANEU, BMP, ADIFF, CBC #### [address] [address] WBC 6.5 10 3/mcL Normal 4.6-10.8 [facility] Comment on above: Order Comment: Pre-A dmission Testing Performed By: #### G FR, ALB, ANEU, BMP, ADIFF, CBC #### [address] [address] [address] KNEE W/O CONTRAST RIGHTon 04-10-2024 CT KNEE W/O CONTRAST RIGHT ORIGINAL EXAMINATION: CT OF THE RIGHT KNEE WITHOUT CONTRAST 04/10/2024 3:23 pm TECHNIQUE: CT of the right knee was performed without the administration of intravenous contrast. Multiplanar reformatted images are provided for review. Automated exposure control, iterative reconstruction, and/or weight based adjustment of the mA/kV was utilized to reduce the radiation dose to as low as reasonably achievable.ANAI protocol was performed with axial images through the right hip and right ankle. COMPARISON: None. HISTORY ORDERING SYSTEM PROVIDED HISTORY: Reason for Exam: Unilateral primary osteoarthritis, right knee FINDINGS: There is no acute fracture or dislocation. There is no aggressive periosteal reaction. Tricompartmental osteoarthritis of the right knee severe in the medial compartment with asymmetric joint space narrowing, bone on bone, subchondral sclerosis and marginal osteophyte formation. Quadriceps enthesopathy. Spurring of the tibial spines and intercondylar notch. Lateral coronal tibiofemoral subluxation. Small knee joint effusion. Small popliteal Blood's cyst. Lateral patellar tilting. Distended bladder. Uterus and adnexa cannot be evaluated on CT. Mild degenerative changes the pubic symphysis with chondrocalcinosis. Femoroacetabular joint space narrowing. Multifocal pelvic enthesopathy. Indeterminate 5 mm sclerotic focus in the left pubic body (series 2, image 19). Small right inguinal hernia containing fat and segment of small bowel. Diffuse subcutaneous edema of the ankle. Retrocalcaneal enthesopathy. Bilateral Multipartite os navicularis. Soft tissues within normal limits. IMPRESSION: Tricompartmental osteoarthritis of the right knee severe in the medial compartment in patient for preop planning. Small knee joint effusion and small popliteal Blood's cyst. Indeterminate 5 mm sclerotic focus in the left pubic body. Small right inguinal hernia containing fat and a segment of small bowel. Interpreted by: Alem Resendiz Preliminary Report By: Alem Resendiz Electronically signed By Alem Resendiz Dictated Date: 04/10/2024 3:37:23 PM Prelim Date: 04/10/2024 3:55:47 PM Sign Date: 04/10/2024 3:55:47 PM Ordering Provider: LILLY Moya [facility] ([place]) LABORATORYOrdered By: SYSTEM SYSTEM on 04-10-2024 Albumin BCP dye [Mass/Vol] 4.1 G/dL Normal 3.4 - 4.8 G/dL AO ADM SS Basophils (Bld) [#/Vol] 0.1 103/mcL Normal 0.0 - 0.2 10^3/mcL AO Workflow SS Basophils/100 WBC (Bld) 0.9 % Normal 0.0 - 2.5 % AO Workflow SS Calcium [Mass/Vol] 9.2 mg/dL Normal 8.4 - 10. 2 mg/dL AO ADM SS Chloride [Moles/Vol] 102 mmol/L Normal 98 - 10 7 mmol/L AO ADM SS CO2 [Moles/Vol] 29 mmol/L Normal 23 - 31 mmol/L AO ADM SS Creatinine [Mass/Vol] 0.98 mg/dL Normal 0.55 - 1.02 mg/dL AO ADM SS Comment on above: Interpretive Data: T esting performed on Siemens Dimension EXL analyzer using a modified kinetic Ras technique. Electrolyte Balance 8.0 mEq/L Normal 4.0 - 15 .0 mEq/L AO ADM SS Eosinophil, Absolute 0.1 103/mcL Normal 0.0 - 0 .4 10^3/mcL AO Workflow SS Eosinophils/100 WBC (Bld) 1.3 % Normal 0.0 - 7.0 % AO Workflow SS Erythrocyte distribution width (RBC) [Ratio] 13.6 % Normal 11.5 - 14.5 % AO Workflow SS GFR/1.73 sq M.predicted among blacks MDRD (S/P/Bld) [Vol rate/Area] 66 ml/min/1.73sqm Invalid Interpretation Code AO Chemistry S Comment on above: Interpretive Data: GFR Population mean for , Non- Americans Ages 20-29 = 116 mL/min/1.73 sq.m. Ages 30-39 = 107 mL/min/1.73 sq.m. Ages 40-49 = 99 mL/min/1.73 sq.m. Ages 50-59 = 93 mL/min/1.73 sq.m. Ages 60-69 = 85 mL/min/1.73 sq.m. Ages 70+ = 75 mL/min/1.73 sq.m. Chronic Kidney Disease: Less than 60 mL/min/1.73 square meters End Stage Renal Disease: Less than 15 mL/min/1.73 square meters GFR/1.73 sq M.predicted among non-blacks MDRD (S/P/Bld) [Vol rate/Area] 54 ml/min/1.73sqm Invalid Interpretation Code AO Chemistry S Comment on above: Interpretive Data: GFR Population mean for , Non- Americans Ages 20-29 = 116 mL/min/1.73 sq.m. Ages 30-39 = 107 mL/min/1.73 sq.m. Ages 40-49 = 99 mL/min/1.73 sq.m. Ages 50-59 = 93 mL/min/1.73 sq.m. Ages 60-69 = 85 mL/min/1.73 sq.m. Ages 70+ = 75 mL/min/1.73 sq.m. Chronic Kidney Disease: Less than 60 mL/min/1.73 square meters End Stage Renal Disease: Less than 15 mL/min/1.73 square meters Glucose [Mass/Vol] 129 mg/dL High 83 - 110 mg/dL AO ADM SS Hematocrit (Bld) [Volume fraction] 40.7 % Normal 37.0 - 47.0 % AO Workflow SS Hemoglobin (Bld) [Mass/Vol] 13.8 G/dL Normal 12.0 - 16.0 G/dL AO Workflow SS Lymphocytes (Bld) [#/Vol] 0.7 103/mcL Low 0.8 - 3.9 10^3/mcL AO Workflow SS Lymphocytes/100 WBC (Bld) 11.1 % Normal 10.0 - 50.0 % AO Workflow SS MCH (RBC) [Entitic mass] 30.4 pg Normal 27.0 - 31.2 pg AO Workflow SS MCHC 33.8 G/dL Normal 33.0 - 37.0 G/dL AO Workflow SS MCV (RBC) [Entitic vol] 89.8 fL Normal 80.0 - 94.0 fL AO Workflow SS Monocytes (Bld) [#/Vol] 0.6 103/mcL Normal 0.2 - 1.0 10^3/mcL AO Workflow SS Monocytes/100 WBC (Bld) 9.1 % Normal 1.7 - 13.0 % AO Workflow SS Neutrophils (Bld) [#/Vol] 5.1 103/mcL Normal 2.9 - 6.2 10^3/mcL AO Workflow SS Neutrophils/100 WBC (Bld) 77.6 % Normal 37.0 - 80.0 % AO Workflow SS Platelet mean volume (Bld) [Entitic vol] 9.8 fL Normal 7.4 - 10.4 fL AO Workflow SS Platelets (Bld) [#/Vol] 159 103/mcL Normal 130 - 400 10^3/mcL AO Workflow SS Potassium [Moles/Vol] 4.2 mmol/L Normal 3.5 - 5.1 mmol/L AO ADM SS RBC (Bld) [#/Vol] 4.53 106/mcL Normal 4.20 - 5.4 0 10^6/mcL AO Workflow SS Sodium [Moles/Vol] 139 mmol/L Normal 136 - 145 mmol/L AO ADM SS Urea nitrogen [Mass/Vol] 17 mg/dL Normal 7 - 18 mg/dL AO ADM SS Urea nitrogen/Creatinine [Mass ratio] 17 ratio Normal 7 - 27 ratio AO ADM SS WBC (Bld) [#/Vol] 6.5 103/mcL Normal 4.6 - 10.8 10^3/mcL AO Workflow SS LABORATORYOrdered By: Jodee Muller on 04-10-2024 MRSA (PCR) Not Detected 1 (04/10/24 2:13 PM) Normal Not Detected Auto Viro/Sero SS Comment on above: Result Comment: [place] [id number] MRSA PCR Int MRSA DNA not detecte d by Real-Time Polymerase Chain Reaction (PCR). A negative result may be due to intermittent colonization. Colonization may vary depending on patient treatment, patient status, or exposure to high-risk environments.As with all PCR based in vitro diagnostic tests, extremely low levels of target below the limit of detection of the assay may be detected, but results may not be reproducible. Invalid Interpretation Code Auto Viro/Sero SS MRSAPCRon 04-10-2024 MRSA (PCR) Not detected Normal Not Detected [facility] Comment on above: Result Comment: [place] [id number] Performed By: #### M RSAPCR #### [address] [id number] MRSA PCR Int Normal [facility] Comment on above: Result Comment: MRSA DNA not detected by Real-Time Polymerase Chain Reaction (PCR). A negative result may be due to intermittent colonization. Colonization may vary depending on patient treatment, patient status, or exposure to high-risk environments. As with all PCR based in vitro diagnostic tests, extremely low levels of target below the limit of detection of the assay may be detected, but results may not be reproducible. See Below Performed By: #### M RSAPCR #### [address] [address] Absolute lymphocyte countOrd ered By: Rey Hussein on 11-14-2023 Lymphocytes Auto (Unsp spec) [#/Vol] 1.51 10*3/uL 0.83-4.51 [facility] Automated lymphocyte count a s percentage of total leukocytesOrdered By: Rey Hussein on 11-14-2023 Lymphocytes/100 WBC Auto (Unsp spec) 25.9 % 19-41 [facility] Basophil percentageOrdered B y: Rey Hussein on 11-14-2023 Basophils/100 WBC (Bld) 0.7 % 0-1 [facility] Bilirubin [Mass/Vol] 0.40 mg/dL 0.20-1.00 [facility] Comment on above: For patients on eltr ombopag therapy, use of Dimension [place] TBIL is not recommended. Chloride [Moles/Vol] 104 mmol/L 98-107 [facility] Eosinophils/100 WBC (Bld) 3.1 % 0-5 [facility] Glucose [Mass/Vol] 121 mg/dL 74-106 [facility] Comment on above: Fasting Glucose resu lt from 100 to 125 mg/dL suggests IMPAIRED HOMEOSTASIS per A.D.A. criteria. Hemoglobin (Bld) [Mass/Vol] 14.6 g/dL 12.0-15.0 [facility] Monocytes/100 WBC (Bld) 10.7 % 0-10 [facility] Neutrophils (Bld) [#/Vol] 3.5 10*3/uL 2.0-7.7 [facility] Neutrophils/100 WBC (Bld) 59.4 % 47-70 [facility] Potassium [Moles/Vol] 3.8 mmol/L 3.5-5.1 [facility] Protein [Mass/Vol] 7.2 g/dL 6.4-8.2 [facility] Sodium [Moles/Vol] 138 mmol/L 136-145 [facility] WBC (Bld) [#/Vol] 5.8 10*3/uL 4.4-11.0 [facility] Determination of erythrocyte mean corpuscular volume (MCV)Ordered By: Rey Hussein on 11-14-2023 MCV (RBC) [Entitic vol] 88.8 fL 81-99 [facility] Erythrocyte distribution wid th ratioOrdered By: Rey Hussein on 11-14-2023 Erythrocyte distribution width (RBC) [Ratio] 13.2 % 11.6-14.6 [facility] Erythrocyte distribution wid th standard deviationOrdered By: Rey Hussein on 11-14-2023 Erythrocyte distribution width (RBC) [Entitic vol] 43.0 fL 35.1-43.9 [facility] Hematocrit Auto (Bld) [Volum e fraction]Ordered By: Rey Hussein on 11-14-2023 Hematocrit (Bld) [Volume fraction] 44.4 % 37-47 [facility] Immature granulocytes/100 WB C Auto (Bld)Ordered By: Rey Hussein on 11-14-2023 Immature granulocytes/100 WBC (Bld) 0.200 % 0.0-0.9 [facility] Comment on above: IG% - Immature Granu locytes (promyelocytes, myelocytes and metamyelocytes) > 1% indicates that a LEFT SHIFT is Present. Laboratory - Chemistry and C hemistry - challengeOrdered By: Rey Hussein on 11-14-2023 Albumin/Globulin [Mass ratio] 1.2 {ratio} 0.9-2.4 [facility] ALP [Catalytic activity/Vol] 70 U/L 45-117 [facility] ALT [Catalytic activity/Vol] 25 U/L 13-56 [facility] CO2 [Moles/Vol] 29.0 mmol/L 21.0-32.0 [facility] Globulin (S) [Mass/Vol] 3.2 g/dL 2.2-4.2 [facility] Urea nitrogen/Creatinine [Mass ratio] 21.8 mg/mg 10-20 [facility] Laboratory - Hematology and Cell countsOrdered By: Rey Hussein on 11-14-2023 MCH (RBC) [Entitic mass] 29.2 pg 27.0-32.0 [facility] MCHC (RBC) [Mass/Vol] 32.9 g/dL 32-36 [facility] Nucleated RBC/100 WBC (Bld) [Ratio] 0 % 0-5 [facility] Platelet mean volume (Bld) [Entitic vol] 11.7 fL 6.2-12.0 [facility] Platelets (Bld) [#/Vol] 203 10*3/uL 150-450 [facility] No Panel InformationOrdered By: Rey Hussein on 11-14-2023 Estimated GFR (MDRD) Amer 68 mL/min >60 [facility] Comment on above: GFR Calc Estimated GFR (MDRD) Non-Af Amer 56 mL/min >60 [facility] Comment on above: Non- GFR Calc RBC Auto (Bld) [#/Vol]Ordere d By: Rey Hussein on 11-14-2023 RBC (Bld) [#/Vol] 5.00 10*6/uL 4.2-5.4 [facility] Serum or plasma calcium jey urement (mass/volume)Ordered By: Rey Hussein on 11-14-2023 Calcium [Mass/Vol] 9.2 mg/dL 8.5-10.1 [facility] Serum or plasma creatinine m easurement (mass/volume)Ordered By: Rey Hussein on 11-14-2023 Creatinine [Mass/Vol] 1.01 mg/dL 0.55-1.02 [facility] Comment on above: The validity of the calculated GFR & GFRAA in patients over 70 years has not been determined. Clinical correlation is essential. Serum or plasma urea nitroge n measurement (mass/volume)Ordered By: Rey Hussein on 11-14-2023 Urea nitrogen [Mass/Vol] 22 mg/dL 7-18 [facility] Thin prep Papanicolaou smear with manual screeningOrdered By: Rey Hussein on 11-14-2023 Thin prep Papanicolaou smear with manual screening 4.0 g/dL 3.2-5.0 [facility] Thin prep Papanicolaou smear with manual screening 18 U/L 15-37 [facility] Thin prep Papanicolaou smear with manual screening 5 5-15 [facility] Absolute lymphocyte countOrd ered By: Prashant Rodrigues on 10-02-2023 Lymphocytes Auto (Unsp spec) [#/Vol] 1.15 10*3/uL 0.83-4.51 [facility] Automated lymphocyte count a s percentage of total leukocytesOrdered By: Prashant Rodrigues on 10-02-2023 Lymphocytes/100 WBC Auto (Unsp spec) 23.3 % 19-41 [facility] Basophil percentageOrdered B y: Prashant Rodrigues on 10-02-2023 Basophil percentage 0 SEEN /hpf 0-5 [facility] Basophils/100 WBC (Bld) 1.0 % 0-1 [facility] Chloride [Moles/Vol] 110 mmol/L 98-107 [facility] Eosinophils/100 WBC (Bld) 2.0 % 0-5 [facility] Glucose [Mass/Vol] 97 mg/dL 74-106 [facility] Hemoglobin (Bld) [Mass/Vol] 14.4 g/dL 12.0-15.0 [facility] Monocytes/100 WBC (Bld) 9.1 % 0-10 [facility] Neutrophils (Bld) [#/Vol] 3.2 10*3/uL 2.0-7.7 [facility] Neutrophils/100 WBC (Bld) 64.2 % 47-70 [facility] Potassium [Moles/Vol] 4.2 mmol/L 3.5-5.1 [facility] Sodium [Moles/Vol] 142 mmol/L 136-145 [facility] WBC (Bld) [#/Vol] 4.9 10*3/uL 4.4-11.0 [facility] Bilirubin Test strip Ql (U)O rdered By: Prashant Rodrigues on 10-02-2023 Bilirubin Ql (U) Negative Negative [facility] Determination of erythrocyte mean corpuscular volume (MCV)Ordered By: Prashant Rodrigues on 10-02-2023 MCV (RBC) [Entitic vol] 87.2 fL 81-99 [facility] Erythrocyte distribution wid th ratioOrdered By: Prashant Rodrigues on 10-02-2023 Erythrocyte distribution width (RBC) [Ratio] 13.3 % 11.6-14.6 [facility] Erythrocyte distribution wid th standard deviationOrdered By: Prashant Rodrigues on 10-02-2023 Erythrocyte distribution width (RBC) [Entitic vol] 42.5 fL 35.1-43.9 [facility] Hematocrit Auto (Bld) [Volum e fraction]Ordered By: Prashant Rodrigues on 10-02-2023 Hematocrit (Bld) [Volume fraction] 43.7 % 37-47 [facility] Immature granulocytes/100 WB C Auto (Bld)Ordered By: Prashant Rodrigues on 10-02-2023 Immature granulocytes/100 WBC (Bld) 0.400 % 0.0-0.9 [facility] Comment on above: IG% - Immature Granu locytes (promyelocytes, myelocytes and metamyelocytes) > 1% indicates that a LEFT SHIFT is Present. Ketones Test strip Ql (U)Ord ered By: Prashant Rodrigues on 10-02-2023 Ketones Ql (U) Negative Negative [facility] Laboratory - Chemistry and C hemistry - challengeOrdered By: Prashant Rodrigues on 10-02-2023 CO2 [Moles/Vol] 29.0 mmol/L 21.0-32.0 [facility] Urea nitrogen/Creatinine [Mass ratio] 19.2 mg/mg 10-20 [facility] Laboratory - Hematology and Cell countsOrdered By: Prashant Rodrigues on 10-02-2023 MCH (RBC) [Entitic mass] 28.7 pg 27.0-32.0 [facility] MCHC (RBC) [Mass/Vol] 33.0 g/dL 32-36 [facility] Nucleated RBC/100 WBC (Bld) [Ratio] 0 % 0-5 [facility] Platelet mean volume (Bld) [Entitic vol] 11.3 fL 6.2-12.0 [facility] Platelets (Bld) [#/Vol] 200 10*3/uL 150-450 [facility] Mucus LM Ql (Urine sed)Order ed By: Prashant Rodrigues on 10-02-2023 Mucus Ql (Urine sed) 0 SEEN /hpf [facility] Nitrite Test strip Ql (U)Ord ered By: Prashant Rodrigues on 10-02-2023 Nitrite Ql (U) Negative Negative [facility] No Panel InformationOrdered By: Prashant Rodrigues on 10-02-2023 Urine RBC 0 SEEN /hpf 0-5 [facility] Estimated Creatinine Clearance Calc 52.93 ml/min [facility] Estimated GFR (MDRD) Amer 107 mL/min >60 [facility] Comment on above: GFR Calc Estimated GFR (MDRD) Non-Af Amer 89 mL/min >60 [facility] Comment on above: Non- GFR Calc Troponin I High Sensitivity 8 pg/mL 3.0-54.0 [facility] Comment on above: Please Note: [place] t Units and Gender Specific Reference Ranges. For more information see Policy Stat Procedure [place] High Sensitivity Troponin (TNIH) and attachments. Protein Test strip Ql (U)Ord ered By: Prashant Rodrigues on 10-02-2023 Protein Ql (U) Negative Negative [facility] RBC Auto (Bld) [#/Vol]Ordere d By: Prashant Rodrigues on 10-02-2023 RBC (Bld) [#/Vol] 5.01 10*6/uL 4.2-5.4 [facility] Serum or plasma calcium jey urement (mass/volume)Ordered By: Prashant Rodrigues on 10-02-2023 Calcium [Mass/Vol] 9.5 mg/dL 8.5-10.1 [facility] Serum or plasma creatinine m easurement (mass/volume)Ordered By: Prashant Rodrigues on 10-02-2023 Creatinine [Mass/Vol] 0.68 mg/dL 0.55-1.02 [facility] Comment on above: The validity of the calculated GFR & GFRAA in patients over 70 years has not been determined. Clinical correlation is essential. Serum or plasma urea nitroge n measurement (mass/volume)Ordered By: Prashant Rodrigues on 10-02-2023 Urea nitrogen [Mass/Vol] 13 mg/dL 7-18 [facility] [place] Squamous epithelial cells de tection in urine sediment by light microscopyOrdered By: Prashant Rodrigues on 10-02-2023 Epithelial cells.squamous LM Ql (Urine sed) 0 SEEN /hpf 5-10 [facility] [place] Thin prep Papanicolaou smear with manual screeningOrdered By: Prashant Rodrigues on 10-02-2023 Thin prep Papanicolaou smear with manual screening 3 5-15 [facility] Urine blood detectionOrdered By: Prashant Rodrigues on 10-02-2023 RBC Ql (U) Negative Negative [facility] Urine clarityOrdered By: Cathie Rodrigues on 10-02-2023 Clarity (U) Clear Clear [facility] Urine color determinationOrd ered By: Prashant Rodrigues on 10-02-2023 Color (U) Straw Yellow [facility] Urine glucose detectionOrder ed By: Prashant Rodrigues on 10-02-2023 Glucose Ql (U) Normal mg/dl Normal [facility] Urine leukocyte esterase det ection by dipstickOrdered By: Prashant Rodrigues on 10-02-2023 Leukocyte esterase Test strip Ql (U) Negative Negative [facility] Urine pHOrdered By: Prashant Royal gur on 10-02-2023 pH (U) 7.0 [pH] 5.0 - 8.0 [facility] Urine sediment bacteria coun t by microscopy (number/high power field)Ordered By: Prashant Rodrigues on 10-02-2023 Bacteria LM.HPF (Urine sed) [#/Area] 0 /[HPF] None Seen [facility] Urine specific gravity measu rementOrdered By: Prashant Rodrigues on 10-02-2023 Specific gravity (U) [Rel density] 1.010 1.002-1.030 [facility] Urine urobilinogen measureme ntOrdered By: Prashant Rodrigues on 10-02-2023 Urobilinogen Ql (U) Normal mg/dl Normal [facility] Basophil percentageOrdered B y: Rey Hussein on 07-25-2023 Chloride [Moles/Vol] 108 mmol/L 98-107 [facility] Cholesterol [Mass/Vol] 197 mg/dL <200 [facility] Comment on above: <200 mg/dL Desirable 200-240 mg/dL Borderline >240 mg/dL High Risk Glucose [Mass/Vol] 76 mg/dL 74-106 [facility] Potassium [Moles/Vol] 4.2 mmol/L 3.5-5.1 [facility] Sodium [Moles/Vol] 146 mmol/L 136-145 [facility] Triglyceride [Mass/Vol] 172 mg/dL <199 [facility] Comment on above: The drugs N-Acetylcy steine and Metamizole may falsely depress this assay.Serum Triglycerides Reference Interval Normal <150 mg/dL Borderline high 150 - 199 mg/dL High 200 - 499 mg/dL Very High > or = 500 mg/dL Laboratory - Chemistry and C hemistry - challengeOrdered By: Rey Hussein on 07-25-2023 CO2 [Moles/Vol] 29.0 mmol/L 21.0-32.0 [facility] [place] Urea nitrogen/Creatinine [Mass ratio] 18.5 mg/mg - [facility] No Panel InformationOrdered By: Rey Hussein on 07-25-2023 Estimated GFR (MDRD) Amer 103 mL/min >60 [facility] Comment on above: GFR Calc Estimated GFR (MDRD) Non-Af Amer 85 mL/min >60 [facility] Comment on above: Non- GFR Calc Vitamin D 25-Hydroxy 38.0 ng/mL [facility] Comment on above: Vitamin D 25(OH) Sta tus Range Deficiency <20 ng/mL (50nmol/L) Insufficiency 20 - 30 ng/mL (50 - 75 nmol/L) Sufficiency 30 - 100 ng/mL (75 - 250 nmol/L) Toxicity >100 ng/mL (>250 nmol/L) Serum or plasma calcium jey urement (mass/volume)Ordered By: Rey Hussein on 07-25-2023 Calcium [Mass/Vol] 8.8 mg/dL 8.5-10.1 [facility] Serum or plasma cholesterol in HDL measurement (mass/volume)Ordered By: Rey Hussein on 07-25-2023 Cholesterol in HDL [Mass/Vol] 57 mg/dL >40 [facility] [place] Comment on above: The drugs N-Acetylcy steine and Metamizole may falsely depress this assay. Reference Range HDL <40 mg/dL Low HDL Cholesterol HDL >or= 60 mg/dL High HDL Cholesterol Serum or plasma cholesterol in VLDL measurement (mass/volume)Ordered By: Rey Hussein on 07-25-2023 Cholesterol in VLDL [Mass/Vol] 34 mg/dL 5-40 [facility] Serum or plasma creatinine m easurement (mass/volume)Ordered By: Rey Hussein on 07-25-2023 Creatinine [Mass/Vol] 0.70 mg/dL 0.55-1.02 [facility] Comment on above: The validity of the calculated GFR & GFRAA in patients over 70 years has not been determined. Clinical correlation is essential. Serum or plasma low density lipoprotein (LDL) cholesterol measurement (mass/volume)Ordered By: Rey Hussein on 07-25-2023 Cholesterol in LDL [Mass/Vol] 106 mg/dL 0-130 [facility] Serum or plasma urea nitroge n measurement (mass/volume)Ordered By: Rey Hussein on 07-25-2023 Urea nitrogen [Mass/Vol] 13 mg/dL 7-18 [facility] Thin prep Papanicolaou smear with manual screeningOrdered By: Rey Hussein on 07-25-2023 Thin prep Papanicolaou smear with manual screening 9 5-15 [facility] [place] Basophil percentageon 2021 Chloride [Moles/Vol] 109 mmol/L 98-107 [facility] Work Phone: Glucose [Mass/Vol] 75 mg/dL 74-106 [facility] Work Phone: Potassium [Moles/Vol] 4.3 mmol/L 3.5-5.1 [facility] Work Phone: Sodium [Moles/Vol] 143 mmol/L 136-145 [facility] Work Phone: Laboratory - Chemistry and C hemistry - challengeon 07-20-2022 CO2 [Moles/Vol] 25.0 mmol/L 21.0-32.0 [facility] [place] Work Phone: Urea nitrogen/Creatinine [Mass ratio] 24.6 mg/mg 10-20 [facility] [place] Work Phone: No Panel Informationon 07-20 Estimated GFR (MDRD) Amer 105 mL/min >60 [facility] [place] Work Phone: Comment on above: GFR Calc Estimated GFR (MDRD) Non-Af Amer 87 mL/min >60 [facility] [place] Work Phone: Comment on above: Non- GFR Calc Serum or plasma calcium jey urement (mass/volume)on 07-20-2022 Calcium [Mass/Vol] 9.0 mg/dL 8.5-10.1 [facility] Work Phone: Serum or plasma creatinine m easurement (mass/volume)on 07-20-2022 Creatinine [Mass/Vol] 0.69 mg/dL 0.55-1.02 [facility] Work Phone: Comment on above: The validity of the calculated GFR & GFRAA in patients over 70 years has not been determined. Clinical correlation is essential. Serum or plasma urea nitroge n measurement (mass/volume)on 07-20-2022 Urea nitrogen [Mass/Vol] 17 mg/dL 7-18 [facility] [place] Work Phone: Thin prep Papanicolaou smear with manual screeningon 07-20-2022 Thin prep Papanicolaou smear with manual screening 9 -15 [facility] [place] Work Phone: Vital Signs Date Time Vital Sign Value Performing Clinician Facility 05-05-2025 09:18-0400 Body height 162.[address] Rey Hussein MD Work Phone: [facility] 05-05-2025 09:18-0400 Body mass index (BMI) [Ratio] 27.1 kg/m2 Dr. Rey Hussein MD Work Phone: [facility] 05-05-2025 09:18-0400 Body weight 71.[address] Rey Hussein MD Work Phone: [facility] 05-05-2025 09:18-0400 Diastolic blood pressure 89 mm[Hg] Dr. Rey Hussein MD Work Phone: [facility] 05-05-2025 09:18-0400 Heart rate 52 /min Dr. Rey Hussein MD Work Phone: [facility] 05-05-2025 09:18-0400 Systolic blood pressure 130 mm[Hg] Dr. Rey Hussein MD Work Phone: [facility] 04-30-2025 17:29-0400 Body temperature 98 [degF] Dr. Rey Hussein MD Work Phone: [facility] 04-30-2025 17:29-0400 Diastolic blood pressure 58 mm[Hg] Dr. Rey Hussein MD Work Phone: [facility] 04-30-2025 17:29-0400 Heart rate 60 /min Dr. Rey Hussein MD Work Phone: [facility] 04-30-2025 17:29-0400 Respiratory rate 18 /min Dr. Rey Hussein MD Work Phone: [facility] 04-30-2025 17:29-0400 SaO2% (BldA) [Mass fraction] 93 % Dr. Rey Hussein MD Work Phone: [facility] 04-30-2025 17:29-0400 Systolic blood pressure 136 mm[Hg] Dr. Rey Hussein MD Work Phone: [facility] 04-30-2025 08:21-0400 Body mass index (BMI) [Ratio] 27 kg/m2 Dr. Rey Hussein MD Work Phone: [facility] 04-30-2025 08:21-0400 Body weight 71.[address] Rey Hussein MD Work Phone: [phone] [place] [address] 03-27-2025 12:34-0400 Body height 162.[address] Rey Hussein MD Work Phone: [phone](680)[phone] [place] [address] 03-27-2025 12:34-0400 Body mass index (BMI) [Ratio] 27.4 kg/m2 Dr. Rey Hussein MD Work Phone: 1(545)978-387508 [place] [address] 03-27-2025 12:34-0400 Body temperature 97.2 [degF] Dr. Rey Hussein MD Work Phone: 8(667)[phone] [place] [address] 03-27-2025 12:34-0400 Body weight 72.[address] Rey Hussein MD Work Phone: 3([phone])[phone] [place] [address] 03-27-2025 12:34-0400 Diastolic blood pressure 68 mm[Hg] Dr. Rey Hussein MD Work Phone: 0(156)[phone] [place] [address] 03-27-2025 12:34-0400 Heart rate 49 /min Dr. Rey Hussein MD Work Phone: [phone] [place] [address] 03-27-2025 12:34-0400 Respiratory rate 18 /min Dr. Rey Hussein MD Work Phone: 6([phone] [address] 03-27-2025 12:34-0400 SaO2% (BldA) [Mass fraction] 99 % Dr. Rey Hussein MD Work Phone: [phone] [address] 03-27-2025 12:34-0400 Systolic blood pressure 158 mm[Hg] Dr. Rey Hussein MD Work Phone: [phone] [address] 10-09-2024 10:22-0500 Body height 161.[address] Rey Hussein MD Work Phone: [facility] 10-09-2024 10:22-0500 Body mass index (BMI) [Ratio] 28 kg/m2 Dr. Rey Hussein MD Work Phone: [facility] 10-09-2024 10:22-0500 Body weight 73.[address] Rey Hussein MD Work Phone: [facility] 10-09-2024 10:22-0500 Diastolic blood pressure 68 mm[Hg] Dr. Rey Hussein MD Work Phone: [facility] 10-09-2024 10:22-0500 Heart rate 50 /min Dr. Rey Hussein MD Work Phone: [facility] 10-09-2024 10:22-0500 Respiratory rate 16 /min Dr. Rey Hussein MD Work Phone: [facility] 10-09-2024 10:22-0500 Systolic blood pressure 147 mm[Hg] Dr. Rey Hussein MD Work Phone: [facility] 04-30-2024 14:57-0400 Body temperature 98.42 [degF] DR LILLY HAND MD [facility] 04-30-2024 14:57-0400 Diastolic Blood Pressure Non-Invasive 51 mm[Hg] DR LILLY HAND MD [facility] 04-30-2024 14:57-0400 Heart rate 64 /min DR LILLY HAND MD [facility] 04-30-2024 14:57-0400 Reason For Taking VItal Signs DR LILLY HAND MD [facility] 04-30-2024 14:57-0400 Respiratory rate 18 /min DR LILLY HAND MD [facility] 04-30-2024 14:57-0400 Systolic Blood Pressure Non-Invasive 116 mm[Hg] DR LILLY HAND MD [facility] 04-30-2024 12:45-0400 Heart rate 78 /min DR LILLY HAND MD [facility] 04-30-2024 11:28-0400 Body temperature 97.34 [degF] DR LILLY HAND MD [facility] 04-30-2024 11:28-0400 Diastolic Blood Pressure Non-Invasive 60 mm[Hg] DR LILLY HAND MD [facility] 04-30-2024 11:28-0400 Heart rate 62 /min DR LILLY HAND MD [facility] 04-30-2024 11:28-0400 Reason For Taking VItal Signs DR LILLY HAND MD [facility] 04-30-2024 11:28-0400 Respiratory rate 18 /min DR LILLY HAND MD [facility] 04-30-2024 11:28-0400 Systolic Blood Pressure Non-Invasive 126 mm[Hg] DR LILLY HAND MD [facility] 04-30-2024 06:51-0400 Body temperature 97.88 [degF] DR LILLY HAND MD [facility] 04-30-2024 06:51-0400 Diastolic Blood Pressure Non-Invasive 50 mm[Hg] DR LILLY HAND MD [facility] 04-30-2024 06:51-0400 Heart rate 71 /min DR LILLY HAND MD [facility] 04-30-2024 06:51-0400 Reason For Taking VItal Signs DR LILLY HAND MD [facility] 04-30-2024 06:51-0400 Respiratory rate 18 /min DR LILLY HAND MD [facility] 04-30-2024 06:51-0400 Systolic Blood Pressure Non-Invasive 117 mm[Hg] DR LILLY HAND MD [facility] 04-29-2024 13:50-0400 Body height [address] LILLY HAND MD [facility] 04-29-2024 13:50-0400 Body weight 71.[address] LILLY HAND MD [facility] 04-29-2024 13:50-0400 Body weight 27.74 kg/m2 DR LILLY HAND MD [facility] 04-29-2024 12:30-0400 Body temperature 96.98 [degF] DR LILLY HAND MD [facility] 04-29-2024 12:25-0400 Respiratory Rate - Anes 0 br/min DR LILLY HAND MD [facility] 04-29-2024 12:20-0400 Respiratory Rate - Anes 16 br/min DR LILLY HAND MD [facility] 04-29-2024 12:15-0400 Respiratory Rate - Anes 15 br/min DR LILLY HAND MD [facility] 04-29-2024 11:45-0400 Body temperature 98.6 [degF] DR LILLY HAND MD [facility] 04-29-2024 11:15-0400 Body temperature 98.6 [degF] DR LILLY HAND MD [facility] 04-29-2024 08:38-0400 Body height [address] LILLY HAND MD [facility] 04-29-2024 08:38-0400 Body temperature 97.34 [degF] DR LILLY HAND MD [facility] 04-29-2024 08:38-0400 Body weight 71.[address] LILLY HAND MD [facility] 04-29-2024 08:38-0400 Heart rate 56 /min DR LILLY HAND MD [facility] 04-10-2024 13:38-0400 Body height [address] LILLY HAND MD [facility] 04-10-2024 13:38-0400 Body weight 71.[address] LILLY HAND MD [facility] 04-10-2024 13:38-0400 Body weight 27.74 kg/m2 DR LILLY HAND MD [facility] 04-10-2024 13:38-0400 Diastolic Blood Pressure Non-Invasive 69 mm[Hg] DR LILLY HAND MD [facility] 04-10-2024 13:38-0400 Heart rate 57 /min DR LILLY HAND MD [facility] 04-10-2024 13:38-0400 Respiratory rate 20 /min DR LILLY HAND MD [facility] 04-10-2024 13:38-0400 Systolic Blood Pressure Non-Invasive 146 mm[Hg] DR LILLY HAND MD [facility] 10-02-2023 14:52-0500 Body temperature 97.4 [degF] Dr. Rey Hussein Work Phone: [facility] 10-02-2023 14:52-0500 Diastolic blood pressure 65 mm[Hg] Dr. Rey Hussein Work Phone: [facility] 10-02-2023 14:52-0500 Heart rate 79 /min Dr. Rey Hussein Work Phone: [facility] 10-02-2023 14:52-0500 Respiratory rate 22 /min Dr. Rey Hussein Work Phone: [facility] 10-02-2023 14:52-0500 SaO2% (BldA) [Mass fraction] 100 % Dr. Rey Hussein Work Phone: [facility] 10-02-2023 14:52-0500 Systolic blood pressure 177 mm[Hg] Dr. Rey Hussein Work Phone: [facility] 10-02-2023 12:33-0500 Body height 161.[address] Rey Hussein Work Phone: [facility] 10-02-2023 12:33-0500 Body mass index (BMI) [Ratio] 28.2 kg/m2 Dr. Rey Hussein Work Phone: [facility] 10-02-2023 12:33-0500 Body weight 73.[address] Rey Hussein Work Phone: [facility] 08-29-2023 13:24-0500 Diastolic blood pressure 70 mm[Hg] Dr. Rey Hussein Work Phone: [facility] 08-29-2023 13:24-0500 Systolic blood pressure 130 mm[Hg] Dr. Rey Hussein Work Phone: [facility] 08-29-2023 13:22-0500 Body mass index (BMI) [Ratio] 29 kg/m2 Dr. Rey Hussein Work Phone: [facility] 08-29-2023 13:22-0500 Body weight 74.[address] Rey Hussein Work Phone: [facility] 08-29-2023 13:22-0500 Heart rate 66 /min Dr. Rey Hussein Work Phone: [facility] 08-29-2023 13:22-0500 Respiratory rate 18 /min Dr. Rey Hussein Work Phone: [facility] 08-29-2023 13:22-0500 SaO2% (BldA) [Mass fraction] 98 % Dr. Rey Hussein Work Phone: [facility] 02-21-2023 13:32-0400 Body height 160.[address] Rey Hussein Work Phone: [facility] 02-21-2023 13:32-0400 Body mass index (BMI) [Ratio] 28.8 kg/m2 Dr. Rey Hussein Work Phone: [facility] 02-21-2023 13:32-0400 Body weight 73.[address] Rey Hussein Work Phone: [facility] 02-21-2023 13:32-0400 Diastolic blood pressure 64 mm[Hg] Dr. Rey Hussein Work Phone: [facility] 02-21-2023 13:32-0400 Heart rate 63 /min Dr. Rey Hussein Work Phone: [facility] 02-21-2023 13:32-0400 Respiratory rate 18 /min Dr. Rey Hussein Work Phone: [facility] 02-21-2023 13:32-0400 Systolic blood pressure 151 mm[Hg] Dr. Rey Hussein Work Phone: [facility] 02-02-2023 08:56-0400 Body mass index (BMI) [Ratio] 28.3 kg/m2 Dr. Rey Hussein Work Phone: [facility] 02-02-2023 08:56-0400 Body temperature 98.4 [degF] Dr. Rey Hussein Work Phone: [facility] 02-02-2023 08:56-0400 Body weight 72.[address] Rey Hussein Work Phone: [facility] 02-02-2023 08:56-0400 Diastolic blood pressure 86 mm[Hg] Dr. Rey Hussein Work Phone: [facility] 02-02-2023 08:56-0400 Heart rate 54 /min Dr. Rey Hussein Work Phone: [facility] 02-02-2023 08:56-0400 Respiratory rate 16 /min Dr. Rey Hussein Work Phone: [facility] 02-02-2023 08:56-0400 SaO2% (BldA) [Mass fraction] 98 % Dr. Rey Hussein Work Phone: [facility] 02-02-2023 08:56-0400 Systolic blood pressure 162 mm[Hg] Dr. Rey Hussein Work Phone: [facility] 10-19-2021 09:53-0400 Body height 160.[address] Rey Hussein Work Phone: [facility] Work Phone: 10-19-2021 09:53-0400 Body mass index (BMI) [Ratio] 28.5 kg/m2 Dr. Rey Hussein Work Phone: [facility] Work Phone: 10-19-2021 09:53-0400 Body weight 73.[address] Rey Hussein Work Phone: [facility] Work Phone: Encounters Encounter Date Encounter Type Care Provider Facility Start: 06-02-2025 End: 06-02-2025 nicole Hussein [facility] Start: 05-15-2025 End: 05-15-[address] Inge Ryan MD -[facility] Work Phone: Start: 05-15-2025 End: 05-15-[address] Rey Hussein MD Work Phone: -[facility] Start: 05-05-2025 End: 05-05-[address] June Edward MD -[facility] Work Phone: Start: 05-05-2025 End: 05-05-[address] Rey Hussein MD Work Phone: -[facility] Start: 05-01-2025 End: 05-01-2025 Patient encounter procedure Surgery Nurse -[facility] Work Phone: Start: 05-01-2025 End: 05-01-[address] Rey Hussein MD Work Phone: [facility] Start: 04-30-2025 Non-patient / Non-visit Dr. Ashok Ryan MD -[facility] Start: 04-30-2025 End: 04-30-2025 Admission to same day surgery center Dr. Inge Ryan MD [facility] Start: 04-30-2025 End: 04-30-[address] Rey Hussein MD Work Phone: [facility] Start: 03-27-2025 End: 03-27-[address] Inge Ryan MD -[facility] Work Phone: Start: 03-27-2025 End: 03-27-[address] Rey Hussein MD Work Phone: [facility] Start: 03-25-2025 ambulatory Rey Hussein Facility:[facility] Start: 02-03-2025 Non-patient / Non-visit Dr. June hope MD -[facility] Work Phone: Start: 01-09-2025 End: 01-09-[address] Rey Hussein MD Work Phone: [facility] Work Phone: Start: 01-09-2025 End: 01-09-[address] Rey Hussein MD -Laboratory [facility] Start: 01-09-2025 End: 01-09-2025 ambulatory Rey Hussein Facility:[facility] Start: 10-09-2024 End: 10-09-2024 Patient encounter procedure Spike Keyes Rosi MCKEON-C -[facility] Work Phone: Start: 10-09-2024 End: 10-09-2024 ambulatory Rey Hussein [facility] Start: 07-11-2024 End: 07-11-2024 ambulatory Rey Hussein Facility:[facility] Start: 04-29-2024 End: 04-30-[address] REY HUSSEIN MD Facility:[facility] Start: 04-29-2024 End: 04-30-[address] LILLY HAND MD [facility] Start: 04-10-2024 End: 04-10-[address] LILLY HAND MD Facility:[facility] Start: 04-10-2024 End: 04-10-[address] LILLY HAND MD [facility] Start: 04-10-2024 End: 04-10-[address] LILLY HAND MD [facility] Start: 04-10-2024 End: 04-10-[address] LILLY HAND MD Facility:[facility] Start: 03-07-2024 ambulatory LILLY HAND Facility: [facility] Start: 03-06-2024 ambulatory LILLY HAND Facility: [facility] Start: 11-14-2023 End: 11-14-[address] Rey Hussein Work Phone: [facility] Work Phone: Start: 11-14-2023 End: 11-14-[address] Rey Hussein Work Phone: [facility] Start: 10-02-2023 End: 10-02-2023 Emergency department patient visit Dr. Rey Hussein Work Phone: [facility] Work Phone: Start: 08-29-2023 End: 08-29-[address] Rey Hussein Work Phone: [facility] Work Phone: Start: 07-25-2023 End: 07-25-[address] Rey Hussein Work Phone: [facility] Work Phone: Start: 07-25-2023 End: 07-25-[address] Rey Hussein Work Phone: [facility] Start: 05-30-2023 End: 05-30-[address] Rey Hussein Work Phone: [facility] Work Phone: Start: 03-07-2023 Non-patient / Non-visit Dr. Carmelita Hussein Work Phone: [facility] Start: 03-07-2023 End: 03-07-[address] Rey Hussein Work Phone: [facility] Work Phone: Start: 03-07-2023 End: 03-07-[address] Rey Hussein Work Phone: [facility] Work Phone: Start: 02-21-2023 End: 02-21-[address] Rey Hussein Work Phone: [facility] Work Phone: Start: 02-21-2023 End: 02-21-[address] Rey Hussein Work Phone: [facility] Work Phone: Start: 02-02-2023 End: 02-02-[address] Rey Hussein Work Phone: [facility] Work Phone: Start: 07-20-2022 End: 07-20-2022 ambulatory [facility] Work Phone: Start: 07-20-2022 End: 07-20-2022 Patient encounter procedure [facility] Start: 12-07-2021 End: 12-07-[address] Rey Hussein Work Phone: [facility] Start: 10-19-2021 End: 10-19-[address] Rey Hussein Work Phone: [facility] Start: 08-23-2021 End: 08-23-[address] Rey Hussein Work Phone: [facility]Outpatient Breast Imaging Procedures Date Procedure Procedure Detail Performing Clinician Start: 10-09-2024 Evaluation of diagno stic study results Dr. Rey Hussein MD Work Phone: Start: 02-21-2023 Radiologic examinati on of knee Dr. Rey Hussein Work Phone: Start: 10-19-2021 Radiologic examinati on of knee Dr. Rey Hussein Work Phone: Start: 08-23-2021 Screening mammography Ramon Hussein Work Phone: Colonoscopy DR LILLY Singh MD Extraction of cataract DR GIANNA JAVIER Comment on above: bilateral History of repair of inguinal hernia S/P bilateral inguinal hernia repair Dr. Rey Hussein MD Work Phone: Comment on above: robotic 04/30/25 History of repair of inguinal hernia S/P bilateral inguinal hernia repair Dr. Inge Ryan MD Plan of Treatment Date Care Activity Detail Author Start: 05-05-2025 End: 05-05-2025 Patient encounter procedure [facility] Work Phone: Start: 04-30-2025 Anesthesia intraperitoneal lower abd w/laps nos ANESTH SURG LOWER ABDOMEN [facility] Start: 04-30-2025 Laparoscopy surg rpr initial inguinal hernia LAP ING HERNIA REPAIR INIT [facility] Start: 04-30-2025 Patient discharge [facility] Start: 10-02-2023 [facility] Patient Education ED Hypertensio n, Established [facility] Work Phone: Patient referral [facility] Work Phone: Immunizations Immunization Date Immunization Notes Care Provider Maximo crespo 07-20-2021 SARS-CoV-2 mRNA (tozinameran) vaccine DR LILLY HAND MD [facility] 07-01-2021 SARS-CoV-2 mRNA (tozinameran) vaccine DR LILLY HAND MD [facility] 05-09-2018 tetanus toxoid, redu philly diphtheria toxoid, and acellular pertussis vaccine, adsorbed DR LILLY HAND MD [facility] Payers Date Payer Category Payer Self-pay [id number] 2023 Medicare [id number] 233 [id number] 1940 Unknown [id number] 2.16.8 [id number] 1940 Unknown [id number] 2.16.8 [id number] 1940 Unknown [id number] 2.16.8 [id number] Unknown [id number] 2.16.8 [id number] Unknown [id number] 2.16.8 [id number] Unknown [id number] 2.16.8 [id number] Unknown [id number] 2.16.8 [id number] Unknown [id number] 2.16.8 [id number] Unknown [id number] 2.16.8 [id number] Unknown [id number] 2.16.8 [id number] Unknown [id number] 2.16.8 [id number] Unknown [id number] 2.16.8 [id number] Unknown [id number] 2.16.8 [id number] Unknown [id number] 2.16.8 [id number] Social History Date Type Detail Facility Start: 10-19-2021 End: 10-02-2023 Tobacco smoking status NHIS Unknown if ever smoked [facility] Start: 1940 Sex Assigned At Female W [facility] Start: 04-10-2024 End: 04-16-2025 Tobacco smoking status Never smoked tobacco (finding) [facility] Not [facility] Medical Equipment Procedure Code Equipment Code Equipment Origin al Text Equipment Identifier Dates Extra-gynaecolog ical surgical mesh, composite-polymer [id number] FDA Start: 04-30-2025 Extra-gynaecolog ical surgical mesh, composite-polymer [id number] FDA Start: 04-30-2025 Goals Date Patient Goal Desired Activity /State Functional Status Date Assessment Result Facility 04-30-2024 Functional Status Nurse Anna Marie garcia q2hrs Performed 7am-3pm [facility] 04-30-2024 Functional Status bilateral knee high ji lied/on [facility] 04-30-2024 Functional Status Carmen Kim [facility] 04-30-2024 Functional Status Mod I Carmen [facility] 04-30-2024 Functional Status Front wheeled walker [facility] 04-30-2024 Functional Status Carmen Kim [facility] 04-30-2024 Functional Status Carmen [facility] 04-30-2024 Functional Status Carmen Kim [facility] 04-30-2024 Functional Status Carmen Kim [facility] 04-29-2024 Functional Status Carmen [facility] 04-29-2024 Functional Status Mod I Carmen [facility] 04-29-2024 Functional Status Single level home [facility] 04-29-2024 Functional Status Compression ga rments, ice on, tension pillow in place [facility] 04-29-2024 [facility] Functional Status Sensory Deficits None [facility] Mental Status Date Assessment Result Facility 04-30-2025 Cognitive function Voice/Name [facility] Work Phone: 04-30-2024 Mental Status Oriented x 4 [facility] 04-29-2024 Mental Status [facility] 04-29-2024 Mental Status [facility] 10-02-2023 Cognitive function Level Of Cons ciousness Awake;Alert;Appropriate;Follow s Commands [facility] Work Phone: Clinical Notes 04-10-2024 to 05-15-2025 Note Date & Type Note Facility 05-15-2025 Progress note [facility] 05-15-2025 Progress note Note Date/Time May 15, 2025 2:08pm [facility] [address] [place] [address] OFFICE VISIT Date of Service: 05/15/25 MR#: [id number] Acct: [id number] Name: MOHINI OLIVARES Rep #: [id number] : 1940 Provider: Dr. Edilma Ryan MD Age/Sex: 84/F Location: [facility] Status: Signed Intake Vital Signs 05/05/25 09:18 Height 5 ft 4 in Weight: 158 lb BMI 27.1 BP 130/89 H Pulse 52 L Intake Visit Reasons: HERNIA 9 Chief Complaint: hernia 04-30 Is patient in pain?: No Allergies ampicillin Allergy (Unknown, Verified 05/15/25 13:10) unknown amoxicillin Allergy (Verified 05/15/25 13:10) Rash Medications ?Medication ?Instructions ?Recorded ?Confirmed ?Type multivitamin (Daily Multi-Vitamin 1 tab PO DAILY 10/1905/15/25 History tablet) [id number]-[id number] 1 tab PO DAILY 02/15/23 05/15/25 History [Citracal Plus] glucosamine HCl 500 mg tablet 500 mg PO DAILY 02/15/23 05/15/25 History lisinopril 10 mg tablet 10 mg PO DAILY #30 tabs 09/0705/15/25 Rx metoprolol succinate 25 mg 25 mg PO QDAY 10/09/2405/06 History tablet,extended release 24 hr naproxen 500 mg tablet 250 mg PO BID PRN pain 10/0905/15/25 History amlodipine 5 mg tablet 5 mg PO DAILY 04/16/2505/15 History Have you fallen in the past year?: Yes Subjective Details: 84-year-old female presents status post bilateral inguinal robotic hernia repairs with mesh. Patient initially did have some urinary retention which may have been partly due to her medication. patient did see urology Barrera catheter was able to come out with no issues. Patient denies any abdominal pain or issues postop otherwise. Objective Details: Incisions healing well clean dry and intact Coding Level of Care Code Global Post Op Diagnoses S/P bilateral inguinal hernia repair Z98.890; Z87.19 [facility] Medical History (Updated 05/05/25 @ 09:[address] June Edward MD) Nocturia Urge incontinence Wears glasses Ambulates with cane OAB (overactive bladder) Non-smoker Hypertension History of stress test History of echocardiogram Cardiology follow-up encounter Right inguinal hernia Osteoarthritis of right knee Holter monitor, abnormal Syncope Strain of left knee Difficulty balancing Incontinence Knee pain Cancer of skin Arthritis Hx of fracture of wrist Right knee DJD Right knee pain Melanoma Basal cell carcinoma Chest pain Osteoarthritis Surgical History (Updated 05/18/25 @ 10:[address] Inge Ryan MD) S/P bilateral inguinal hernia repair History of colonoscopy History of total right knee replacement (~04/2024) History of dilatation and curettage History of cataract extraction Family History Mother Hypertension Heart disease Cancer Melanoma Father Emphysema of lung Grandmother Diabetes Grandfather Myocardial infarction Brother Melanoma Other Right knee DJD Social History Smoking Status: Never smoker alcohol intake: never substance use type: does not use caffeine: Yes (Occasionally) Assessment and Plan (No Qualifiers) Assessment and Plan (1) S/P bilateral inguinal hernia repair: Status: Acute Comment: robotic 04/30/25 Plan Patient's incisions healing well. Patient tolerating diet and having bowel function. Follow-up as needed. Patient agreeable to plan. Inge Ryan M.D. Pager: [phone] [facility] [address] [place] [address] [address] [place] [address] Office: [phone] 05/18/25 1029 <Electronically signed by Inge Nagy am, MD> Date _ Inge Ryan MD Cosigner Signature: Date (if applicable) CC: Dr. Rey Hussein MD ~ [facility] Work Phone: 1(780) 810-458209-30-2025 [facility] [address] [facility], [address] [place] [id number] OFFICE VISIT Date of Service: 05/05/25 MR#: [id number] Acct: [id number] Name: MOHINI OLIVARES Rep #: [id number] : 1940 Provider: Dr. Alfredo Edward MD Age/Sex: 84/F Location[facility] Status: Signed Intake Vital Signs 04/30/25 08:21 05/05/25 09:18 Height 5 ft 4 in 5 ft 4 in Weight: 158 lb BMI 27.1 BP 130/89 H Pulse 52 L Intake Visit Reasons: PVR Chief Complaint: PVR [employer] Bag Sewer Required: No Accompanied by: self Is patient in pain?: No Allergies ampicillin Allergy (Unknown, Verified 05/05/25 09:16) unknown amoxicillin Allergy (Verified 05/05/25 09:16) Rash Medications ?Medication ?Instructions ?Recorded ?Confirmed ?Type multivitamin (Daily Multi-Vitamin 1 tab PO DAILY 10/1905/05/25 History tablet) [id number]-[id number] [id number] 1 tab PO DAILY 02/15/23 05/05/25 History [Citracal Plus] glucosamine HCl 500 mg tablet 500 mg PO DAILY 02/15/23 05/05/25 History lisinopril 10 mg tablet 10 mg PO DAILY #30 tabs 09/0705/05/25 Rx metoprolol succinate 25 mg 25 mg PO QDAY 10/09/2404/08 History tablet,extended release 24 hr naproxen 500 mg tablet 250 mg PO BID PRN pain 10/0905/05/25 History amlodipine 5 mg tablet 5 mg PO DAILY 04/16/2505/05 History Have you fallen in the past year?: No Nurse's Note: stopped gemtesa for inguinal hernia repair on Bladder scan PVR 23cc [facility] Medical History (Updated 05/05/25 @ 09:[address] June Edward MD) Nocturia Urge incontinence Wears glasses Ambulates with cane OAB (overactive bladder) Non-smoker Hypertension History of stress test History of echocardiogram Cardiology follow-up encounter Right inguinal hernia Osteoarthritis of right knee Holter monitor, abnormal Syncope Strain of left knee Difficulty balancing Incontinence Knee pain Cancer of skin Arthritis Hx of fracture of wrist Right knee DJD Right knee pain Melanoma Basal cell carcinoma Chest pain Osteoarthritis Surgical History History of colonoscopy History of total right knee replacement (~04/2024) History of dilatation and curettage History of cataract extraction Family History Mother Hypertension Heart disease Cancer Melanoma Father Emphysema of lung Grandmother Diabetes Grandfather Myocardial infarction Brother Melanoma Other Right knee DJD Social History Smoking Status: Never smoker alcohol intake: never substance use type: does not use caffeine: Yes (Occasionally) HPI HPI Urology Chief Complaint: PVR Details: MOHINI OLIVARES, is a 84 F. She had an inguinal hernia repair last week and had postoperative urinary retention. Her Gemtesa was subsequently held. Her Barrera catheter was removed at home before bed last night. She is here currently for a postvoid residual assessment. She voided at 5:30am. No straining to void. There is no constipation, it was resolved yesterday. We discussed how the constipation can increase the risk of urinary retention. She did take some softeners, Miralax on Sunday. We discussed takingsomething regularly for the next few weeks. ROS Const Constitutional: No chills, fatigue, fever(s), headache(s), night sweats, weakness, weight change, abnormal sleep pattern or change in appetite Eyes Eyes: No change in vision ENT ENT: No headache(s) or dry mouth Resp Respiratory: No cough, chest congestion, shortness of breath or wheezing Cardio Cardiology: Positive for other (No chest pain.); No shortness of breath, irregular heart rhythm or lightheadedness Gastro GI: Positive for constipation and other (No nausea.); No abdominal pain, change in bowel habits, diarrhea or vomiting Musc Musculoskeletal: No abnormal gait Skin Skin: No yellowing of the eye, lesions, itchy eyes, rash or skin ulcer Neuro Neurology: No abnormal gait, confusion, dizziness, weakness, headache(s) or memory loss Psych Psychiatric: No abnormal sleep pattern, No change in appetite, No confusion and No memory loss Endo Endocrine: No fatigue, increased thirst/drinking or weight change Aller/Imm Allergy/Immunologic: No itchy eyes or wheezing Saeid/Lymp Hematologic/Lymphatic: No easy bleeding, easy bruising or enlarged lymph nodes Exam Const General: cooperative, healthy appearing, comfortable, no acute distress and other (walking with cane.) [facility] Head: normocephalic and atraumatic Ears: hearing grossly normal bilaterally and external ears normal Nose: external nose normal Eyes General: appearance normal, both eyes and all related structures Neck Neck: normal visual inspection and trachea midline Chest Chest palpation & inspection: normal inspection of the chest Resp Effort & Inspection: normal respiratory effort, able to speak in complete sentences and symmetric chest movement Cardio Rate: regular rate GI Inspection: normal to inspection Palpation: soft and nontender General: No CVA tenderness Skin General: no rashes or lesions noted Neuro General: patient alert, patient awake, patient oriented x3 and CN's II-XI intactbilaterally Extrem General: normal to inspection Psych Appearance: grossly normal and well kempt Mental Status: mental status grossly normal Office Procedures Post Void Residual Post Void Residual: 23cc Coding Level of Care Code Off vis,est,level 4 Diagnoses Urinary retention R33.9 Urge incontinence N39.41 Nocturia R35.1 Constipation K59.00 Assessment and Plan Assessment and Plan (1) Urinary retention: Status: Acute Comment: post operative (2) Urge incontinence: Status: Acute (3) Nocturia: Status: Acute (4) Constipation: Status: Acute Orders: Orders PVR Today N39.41 - Urge incontinence Plan aggressive management of bowel function hold Gemtesa for 2 more weeks and then resume daily dose return for repeat PVR in office in 4 weeks. Plan Details Follow Up: 4 Weeks (med f/u with PVR) Clinical Quality Measures Falls Risk Screening/Assistive Devices Have you fallen in the past year?: No 05/05/25 0941 MD> Date _ June Wilkinson Signature: Date (if applicable) CC: ~ [facility]09[facility] [address] [place] [address] OFFICE VISIT Date of Service: 05/01/25 MR#: [id number] Acct: [id number] Patient: MOHINI OLIVARES Rep #: [id number] : 1940 Provider: Surgery Nurse Age/Sex: 84/F Location: [facility] Status: Signed Intake Vital Signs 04/30/25 08:21 Height 5 ft 4 in Intake Visit Reasons: unable to void Chief Complaint: unable to void/requires barrera catheter Is patient in pain?: No Allergies ampicillin Allergy (Unknown, Verified 05/01/25 13:35) unknown amoxicillin Allergy (Verified 05/01/25 13:35) Rash Medications ?Medication ?Instructions ?Recorded ?Confirmed ?Type multivitamin (Daily Multi-Vitamin 1 tab PO DAILY 10/1905/01/25 History tablet) pvzomjv-tta-icu [id number]-urihhzks 1 tab PO DAILY 02/15/23 05/01/25 History [Citracal Plus] glucosamine HCl 500 mg tablet 500 mg PO DAILY 02/15/23 05/01/25 History vibegron 75 mg tablet (Gemtesa) 75 mg PO DAILY 3 05/01/25 History lisinopril 10 mg tablet 10 mg PO DAILY #30 tabs 09/0705/01/25 Rx metoprolol succinate 25 mg 25 mg PO QDAY 10/09/2404/07 History tablet,extended release 24 hr naproxen 500 mg tablet 250 mg PO BID PRN pain 10/0905/01/25 History amlodipine 5 mg tablet 5 mg PO DAILY 04/16/2505/01 History tramadol 50 mg tablet 50 mg PO Q6H PRN pain #7 tab s 04/30/25 05/01/25 Rx Have you fallen in the past year?: No Nursing Note Patient here for barrera catheter placement due to unable to void. Patient did c/ofullness, but no pain. Said she dribbled a few drops prior to leaving house. Patient is on gemtesa. Patient prepped anddraped for barrera catheter placement. 16Fr 10cc barrera catheter inserted via sterile technique after 3 attempts. Yellowurine flow upon placement. Leg bag attached with leg strap for catheter. Patientcleansed and assisted with sitting up. Educated patient on how to drain urine and how to apply a foleybag at nighttime instead of leg bag. Clean urinal given. Patient had 220cc output. Did discuss withpatient that lpn home health left messagefor Dr Edward's office to call back in regards to have urinary catheter. Assessment and Plan Assessment and Plan Orders: Referrals Urology R33.9 - Retention of urine, unspecified Medications: Discontinued tamsulosin (Flomax) Discontinued Reason: Order Changed 0.4 mg PO QDAY 20 caps 0RF Clinical Quality Measures Falls Risk Screening/Assistive Devices Have you fallen in the past year?: No 05/02/25 1005 am > Date _ Inge Ryan MD Cosigner Signature: Date (if applicable) CC: ~ [facility]09-25-2025 Consult note Author Judy Maddox [facility] Note Date/Time April 30, 2025 [facility] [address] [place] [address] Anesthesia Postop Eval II 04/30/25 1533 MR#: [id number] Acct: [id number] Name: MOHINI OLIVARES Rep #:[id number] : 1940 84 From: Judy MORAES PCP: Dr. Rey Hussein MD Status:REG S DC Y Race: C Location: [place] [address] Anesthesia Postop Eval I Sum Postop Eval Completion status Anesthesia document: Postop Eval 1 completed: Yes Anesthesia Postop Eval I Summary Anesthesia Postop Eval I Summary: Anesthesia Postop Eval I: Assessment Summary 3 Airway patent Yes 04/30/25 11:26 DENTURE [email or web address].[email or web address] Spontaneous unlabored Yes 04/30/25 11:26 DENTURE FINISHER.PKEL respirations Mental status Awake,Calm 04/30/25 11:26 DENTURE [email or web address].PKEL nausea No 04/30/25 11:26 DENTURE [email or web address].PKEL Vomiting No 04/30/25 11:26 DENTURE [email or web address].PKEL Anesthesia Postop Eval I: Fluid Summary Crystalloid volume administer 1,200 04/30/25 11:26 DENTURE FINISHER.PKEL (ml) Colloids volume administered ( ml) Blood Product volume administered (ml) Total IV fluid infused 1,200 04/30/25 11:26 DENTURE [email or web address].PKEL Anesthesia Postop Eval I: Summary Notes Anesthesia Complication No 04/30/25 11:26 DENTURE [email or web address].PKEL Anesthesia Complication Comment: Post-operative progress note Anesthesia: Postop Eval II Evaluation Mental status: Awake and Calm Pain Level: 0 nausea: No Vomiting: No Complications Anesthesia Complication: No 04/30/25 1533 <Electronically signed by Judy Maddox CRNA> Date _ Judy Maddox CRNA Cosigner Signature: Date CC: ~ Signed [facility] Work Phone: 1(674) 496-113709-25-2025 Consult note [facility] Medical Records Department [address] [place] [address] Anesthesia Postop Eval II 04/30/25 1533 MR#: [id number] Acct: [id number] Name: ADRIANAMOHINI ROSELYN Rep #:[id number] : 1940 84 From: Judy Maldonado RNA PCP: Dr. eRy Hussein MD Status:REG S DC Y Race: C Location: [address] Anesthesia Postop Eval I Sum Postop Eval Completion status Anesthesia document: Postop Eval 1 completed: Yes Anesthesia Postop Eval I Summary Anesthesia Postop Eval I Summary: Anesthesia Postop Eval I: Assessment Summary 3 Airway patent Yes 04/30/25 11:26 DENTURE [email or web address].[email or web address] Spontaneous unlabored Yes 04/30/25 11:26 DENTURE FINISHER.PKEL respirations Mental status Awake,Calm 04/30/25 11:26 DENTURE [email or web address].PKEL nausea No 04/30/25 11:26 DENTURE FINISHER.PKEL Vomiting No 04/30/25 11:26 DENTURE [email or web address].PKEL Anesthesia Postop Eval I: Fluid Summary Crystalloid volume administer 1,200 04/30/25 11:26 DENTURE FINISHER.PKEL (ml) Colloids volume administered ( ml) Blood Product volume administered (ml) Total IV fluid infused 1,200 04/30/25 11:26 DENTURE FINISHER.PKEL Anesthesia Postop Eval I: Summary Notes Anesthesia Complication No 04/30/25 11:26 DENTURE FINISHER.PKEL Anesthesia Complication Comment: Post-operative progress note Anesthesia: Postop Eval II Evaluation Mental status: Awake and Calm Pain Level: 0 nausea: No Vomiting: No Complications Anesthesia Complication: No 04/30/25 1533 DENTURE FINISHER> Date _ Judy Maddox DENTURE FINISHER Cosigner Signature: Date CC: ~ Signed [facility]09-25-2025 Procedure note [facility] Medical Records Department [address] [place] [address] Operative Report 04/30/25 1103 MR#: [id number] Acct: [id number] Name: MOHINI OLIVARES Rep #:[id number] : 1940 84 From: Inge Ryan MD PCP: Dr. Rey Hussein MD Status:DEP S DC [place] [facility] [place] Report (Standard) Operative Information Date of Procedure: 04/30/25 Pre-Operative Diagnosis: Right inguinal hernia Post-Operative Diagnosis: Bilateral indirect inguinal hernias Surgery/Procedure Performed: Robotic bilateral inguinal hernia pair with mesh calciner feeder: Yes Director Of Marketing Communications: Lavern Perdue Tasks completed by shop assistant: Opening & closing Type of Anesthesia: General/Supplemental RN Documented Start/Stop Times: Operation Date: 04/30/25 09:45 Case Time Into Pre-Op 04/30/25 08:01 Out of Pre-Op 04/30/25 09:22 Anesthesia Start 04/30/25 09:25 Into Room 04/30/25 09:25 Procedure Start 04/30/25 09:49 Procedure End 04/30/25 11:12 Anesthesia End 04/30/25 11:17 Out of Room 04/30/25 11:17 Into Recovery 04/30/25 11:19 Out of Recovery 04/30/25 12:19 Into Phase II Recovery 04/30/25 12:20 Out of Phase II 04/30/25 17:32 Procedure Start Time: 09:49 Procedure Stop Time: 11:12 Select all DRAINS/GRAFTS/IMPLANTS that apply: Prosthetic device Prosthetic device details: ProGrip mesh bilaterally [Lot [id number], [id number]] Special Medications: Clindamycin 900 mg IV x 1 Estimated Blood Loss: < 10 cc Specimen collected: No Description of surgery: Indications: 84-year-old female presented with right inguinal hernia. Robotic right inguinal herniapair with mesh, possible bilateral elected patient was agreeable. Description of procedure: Patient was brought to operating room placed supine operative table. Timeout was completed verifying correct patient, procedure, site, positioning, special, prior to beginning procedure. General anesthesia was induced. Patient's arms were tucked and padded appropriately. Visiport was used to make the incision at Delvalle's point in the left upper quadrant. Entry into theabdomen was confirmed visually. Laparoscope was placed. Verifying no injury during initial trocar placement. Patient was placed in Trendelenburg position. Two 8 mm trochars were placed along the horizontal line in the midline and in the right upper quadrant. The initial 5 mm trocar was upsized to an 8 mm well under direct visualization. Both the inguinal regions were inspected and left indirect and right direct hernias were seen. Both procedures done similarly. The median umbilical ligament was divided sharply with electrocautery. Peritoneum was incised with the endoscopic scissors along a line 2 cm above the superior edge ofthe hernia defect extending from the median umbilical ligament to anterior superior iliac spine. Peritoneal flap was mobilized inferiorly using blunt and sharp/cautery dissection. The inferior epigastric vessels were exposed and symphysis pubis and identified. The indirect hernia sac was inverted and dissected. Round ligament was ligated using electrocautery. A ProGrip mesh were used for left andright. The mesh was rolled longitudinally into a compact cylinder and passed through the trocar. The cylinder was placed along the inferior aspect ofthe working space and unrolled into place to completely cover the direct, indirect and femoral spaces. The mesh was secured in place medially to Carl'sligament using the 3-0 Vicryl suture. Care was taken to avoid the inferolateraltriangle containing iliac vessels and genital nerves. The peritoneal flap was closed over mesh and secured with 3-0 V-Loc suture. After ensuring adequatehemostasis, the trochars were removed and pneumoperitoneum allowed to escape. The skin was closed with 4-0 Monocryl interrupted sutures and Steri-Strips. Patient's testicles are also confirmed in thescrotum bilaterally. Patient tolerated procedure well was taken to the postanesthesia care unit in stable condition. Surgical Findings: See operative report Complications Complications: No 05/01/25 1157 Cosigner Signature (if applicable): CC: Dr. Rey Hussein MD; Dr. Inge Ryan MD~ Signed [facility]09-25-2025 Consult note Author Reagan Tilley [facility] Note Date/Time April 30, 2025 11:26am [facility] Medical Records Department [address] [place] [address] Anesthesia Postop Eval I 04/30/25 1124 MR#: [id number] Acct: [id number] Name: MOHINI OLIVARES Rep #:[id number] : 1940 84 From: Reagan Tilley CRNA PCP: Dr. Rey Hussein MD Status:REG S DC Y Race: C Location: [place] [address]-1 Anesthesia: Postop Eval I Current Vital Signs Temperature: 97.4 F Pulse Rate: 69 Blood Pressure: 118/58 Respiratory Rate: 20 Pulse Ox: 95 Oxygen Delivery Method: Room Air Assessment Airway patent: Yes Spontaneous unlabored respirations: Yes Mental status: Awake and Calm nausea: No Vomiting: No Anesthesia Complication: No Fluid Hydration Crystalloid volume administer (ml): 1,200 Total IV fluid infused: 1,200 Progress Note Anesthesia document: Postop Eval 1 completed: Yes 04/30/25 1126 <Electronically signed by Reagan parkinson CRNA> Date _ Reagan Tilley CRNA Cosigner Signature: Date CC: ~ Signed [facility] Work Phone: 1(911) 805-388409-25-2025 Discharge summary Author Inge [facility] Note Date/Time April 30, 2025 11:11am [facility] Medical Records Department [address] [place] [address] Instructions for Home/Discharge Instructions 04/30/25 1106 MR#: [id number] Acct: [id number] Name: MOHINI OLIVARES Rep #:[id number] : 1940 84 From: Inge Ryan MD PCP: Dr. Rey Hussein MD Status:REG S DC Discharge Instructions Diet Discharge Diet: Light diet - advance as tolerated Activity Discharge Activity: May Not Drive (while taking narcotic pain medications.) May shower in (days): 1 Lifting Restrictions: no lifting >20 lbs x 2 wks, no strenuous exercise for 4 wks Dressing / Incision Call your doctor if your incision/area has: Continuous Slow Oozing, Sudden Increased Bleeding, Increased Pain/ Swelling, Increased Redness, Foul Smelling Discharge and Swelling at the incision site Call your doctor if you observe: Fever of 101 or Higher Remove Dressing in: 2 days Cleanse incision/area with: Soap & Water Additional Dressing/Incision Instructions:: Steri-Strips will fall off in 7 to 10 days, if they do not fall off okay to remove after 10 days. Follow Up Care Please Follow Up With: Inge Ryan MD When: Call the office for a follow-up appointment 2 weeks; after 5 PM and on call [phone] with any concerns. Test Results: Test results from this visit will be discussed in further detail at your follow- up appointment, if applicable. Discharge Plan Admission Attending Provider: Inge Ryan Primary Care Provider: Rey Hussein Instructions Additional Instructions / Restrictions: Okay to take ibuprofen/advil/motrin 400-600 mg PO q6hr PRN pain and/or Tylenol 650mg PO Q6H PRN pain along with Tramadol. Hold naproxen if taking ibuprofen/Advil/Motrin--same drug class Take all pain meds with food. Tramadol can cause constipation recommend taking daily stool softener (i.e. Colace/docusate) while taking the pain meds. Recommend starting some MiraLAX in1-2 days if no bowel movement. If still no bowel movement the next day recommend taking magnesium citrate half the bottle and waiting 4-6 hours if still no results take the other half the bottle. Print Language: Cymraes Discharge Orders/Prescriptions Prescriptions: New tramadol 50 mg tablet 50 mg PO Q6H PRN (Reason: pain) Qty: 7 0RF Continued multivitamin [Daily Multi-Vitamin] Tablet 1 tab PO DAILY naproxen 500 mg tablet 250 mg PO BID PRN (Reason: pain) Patient Comments: take 1/2 tablet by mouth twice a day [id number] [Citracal Plus] 1 tab PO DAILY glucosamine HCl 500 mg tablet 500 mg PO DAILY Rx Instructions: administer with a meal Gemtesa 75 mg tablet 75 mg PO DAILY metoprolol succinate 25 mg tablet extended release 24 hr 25 mg PO QDAY lisinopril 10 mg tablet 10 mg PO DAILY Qty: 30 0RF amlodipine 5 mg tablet 5 mg PO DAILY Referrals / Follow Up: Rey Hussein MD [Primary Care Provider, Family Practice] Disposition Disposition (needs filled in before D/C Order can be placed): Home, Self Care 04/30/25 1111<Electronically signed by Inge Ryan MD>Inge Ryan MD CC: Dr. Rey Hussein MD ~ Signed [facility] Work Phone: 1(225) 380-414209-25-2025 Consult note [facility] Medical Records Department [address] [place] [address] Anesthesia Postop Eval I 04/30/25 1124 MR#: [id number] Acct: [id number] Name: MOHINI OLIVARES Rep #:[id number] : 1940 84 From: Reagan Tilley CRNA PCP: Dr. Rey Hussein MD Status:REG S DC Y Race: C Location: [place] [address] Anesthesia: Postop Eval I Current Vital Signs Temperature: 97.4 F Pulse Rate: 69 Blood Pressure: 118/58 Respiratory Rate: 20 Pulse Ox: 95 Oxygen Delivery Method: Room Air Assessment Airway patent: Yes Spontaneous unlabored respirations: Yes Mental status: Awake and Calm nausea: No Vomiting: No Anesthesia Complication: No Fluid Hydration Crystalloid volume administer (ml): 1,200 Total IV fluid infused: 1,200 Progress Note Anesthesia document: Postop Eval 1 completed: Yes 04/30/25 1126 y DENTURE FINISHER> Date _ Reagan Tilley DENTURE FINISHER Cosigner Signature: Date CC: ~ Signed [facility]09-25-2025 Discharge summary [facility] Medical Records Department [address] [place] [address] Instructions for Home/Discharge Instructions 04/30/25 1106 MR#: [id number] Acct: [id number] Name: MOHINI OLIVARES Rep #:[id number] : 1940 84 From: Inge Ryan MD PCP: Dr. Rey Hussein MD Status:REG S DC Discharge Instructions Diet Discharge Diet: Light diet - advance as tolerated Activity Discharge Activity: May Not Drive (while taking narcotic pain medications.) May shower in (days): 1 Lifting Restrictions: no lifting >20 lbs x 2 wks, no strenuous exercise for 4 wks Dressing / Incision Call your doctor if your incision/area has: Continuous Slow Oozing, Sudden Increased Bleeding, Increased Pain/ Swelling, Increased Redness, Foul Smelling Discharge and Swelling at the incision site Call your doctor if you observe: Fever of 101 or Higher Remove Dressing in: 2 days Cleanse incision/area with: Soap & Water Additional Dressing/Incision Instructions:: Steri-Strips will fall off in 7 to 10 days, if they do not fall off okay to remove after 10 days. Follow Up Care Please Follow Up With: Inge Ryan MD When: Call the office for a follow-up appointment 2 weeks; after 5 PM and on call [phone] with any concerns. Test Results: Test results from this visit will be discussed in further detail at your follow- up appointment, if applicable. Discharge Plan Admission Attending Provider: Inge Ryan Primary Care Provider: Rey Hussein Instructions Additional Instructions / Restrictions: Okay to take ibuprofen/advil/motrin 400-600 mg PO q6hr PRN pain and/or Tylenol 650mg PO Q6H PRN pain along with Tramadol. Hold naproxen if taking ibuprofen/Advil/Motrin--same drug class Take all pain meds with food. Tramadol can cause constipation recommend taking daily stool softener (i.e. Colace/docusate) while taking the pain meds. Recommend starting some MiraLAX in1-2 days if no bowel movement. If still no bowel movement the next day recommend taking magnesium citrate half the bottle and waiting 4-6 hours if still no results take the other half the bottle. Print Language: Cymraes Discharge Orders/Prescriptions Prescriptions: New tramadol 50 mg tablet 50 mg PO Q6H PRN (Reason: pain) Qty: 7 0RF Continued multivitamin [Daily Multi-Vitamin] Tablet 1 tab PO DAILY naproxen 500 mg tablet 250 mg PO BID PRN (Reason: pain) Patient Comments: take 1/2 tablet by mouth twice a day [id number] [Citracal Plus] 1 tab PO DAILY glucosamine HCl 500 mg tablet 500 mg PO DAILY Rx Instructions: administer with a meal Gemtesa 75 mg tablet 75 mg PO DAILY metoprolol succinate 25 mg tablet extended release 24 hr 25 mg PO QDAY lisinopril 10 mg tablet 10 mg PO DAILY Qty: 30 0RF amlodipine 5 mg tablet 5 mg PO DAILY Referrals / Follow Up: Rey Hussein MD [Primary Care Provider, Family Practice] Disposition Disposition (needs filled in before D/C Order can be placed): Home, Self Care 04/30/25 1111Inge Ryan MD CC: Dr. Rey Hussein MD ~ Signed [facility]09-25-2025 History and physical note Author Inge [facility] Note Date/Time April 30, 2025 8:57am [facility] Medical Records Department [address] [place] [address] H&P Exam - Surgical 04/30/25 0846 MR#: [id number] Acct: [id number] Name: MOHINI OLIVARES Rep #:[id number] : 1940 84 From: Inge Ryan MD PCP: Dr. Rey Hussein MD Status:REG S MN Location: [place] [address] HPI - General General Date of Service: 04/30/25 HPI Narrative MOHINI OLIVARES, is a 84 F who presents for robotic right inguinal hernia repair possible bilateral. Patient denies any changes since her office visit. Did have her Mohs surgery about a week ago for her nose. Office visit 03/27/2025 HPI HPI: 84-year-old female presents due to a right inguinal hernia. Patient states her PCP noted about a year ago. Patient had a last 2 to 3 months she does notice a bulge there denies any pain. Patient is interested in having it repaired. Patient currently does have a Mohs surgery for the left side of her nose on April 22 and also has a melanoma on the back of her neck but will be evaluated at that time as well. Patient would prefer surgery after the Mohs surgery. [facility] Medical History (Updated 04/16/25 @ 08:23 by Roseanna London) Wears glasses Ambulates with cane OAB (overactive bladder) Non-smoker Hypertension History of stress test History of echocardiogram Cardiology follow-up encounter Right inguinal hernia Osteoarthritis of right knee Holter monitor, abnormal Syncope Strain of left knee Difficulty balancing Incontinence Knee pain Cancer of skin Arthritis Hx of fracture of wrist Right knee DJD Right knee pain Melanoma Basal cell carcinoma Chest pain Osteoarthritis Home Medications ?Medication ?Instructions ?Recorded ?Last Taken ?Type multivitamin (Daily Multi-Vitamin 1 tab PO DAILY 10/19 Unknown History tablet) [id number]-[id number] [id number] 1 tab PO DAILY 02/15/23 Unknown History [Citracal Plus] glucosamine HCl 500 mg tablet 500 mg PO DAILY 02/15/23 Unknown History vibegron 75 mg tablet (Gemtesa) 75 mg PO DAILY 3 Unknown History lisinopril 10 mg tablet 10 mg PO DAILY #30 tabs 09/07 02/26 Unknown Rx metoprolol succinate 25 mg 25 mg PO QDAY 10/09/2404/07 History tablet,extended release 24 hr naproxen 500 mg tablet 250 mg PO BID PRN pain 10/09 Unknown History amlodipine 5 mg tablet 5 mg PO DAILY 04/16/2504/30 History Allergy/AdvReac Type Severity Reaction Status Date / Time ampicillin Allergy Unknown unknown Verified 04/30/25 08:19 amoxicillin Allergy Rash Verified 04/30/25 08:19 Family History Mother Hypertension Heart disease Cancer Melanoma Father Emphysema of lung Grandmother Diabetes Grandfather Myocardial infarction Brother Melanoma Other Right knee DJD Surgical History (Updated 04/16/25 @ 08:12 by Roseanna London) History of colonoscopy History of total right knee replacement (~04/2024) History of dilatation and curettage History of cataract extraction Social History Smoking Status: Never smoker alcohol intake: never substance use type: does not use caffeine: Yes (Occasionally) Vital Signs Vital Signs Vital Signs: 04/30/25 08:21 04/30/25 08:21 Temperature 97.6 F L Temperature Source Temporal Pulse Rate 47 L Respiratory Rate 16 Respiratory Pattern Normal Blood Pressure 118/56 L Blood Pressure Mean 76 Blood Pressure Source Monitor Blood Pressure Position Semi-Fowlers Blood Pressure Location Left Arm Pulse Ox 97 Oxygen Delivery Method Room Air Weight Weight: 157 lb 6.561 oz Body Mass Index (BMI) 27.0 Physical Exam Const alert, oriented x3 and no apparent distress HEENT normocephalic and head/scalp atraumatic Resp normal respiratory effort Cardio regular rate GI soft to palpation and non-tender; Negative for non-distended GI Narrative: Right inguinal hernia reducible. Palpation: Negative for guarding Extremity no clubbing, cyanosis or edema Skin no rashes or lesions noted Neuro CN's II-XII intact bilaterally Psych mental status grossly normal Assessment & Plan Assessment/Plan (1) Right inguinal hernia: PLAN: Plan Plan to do robotic right inguinal hernia repair with mesh, possible bilateral. Reviewed the procedure with the patient including the risks, including but not limited to infection, bleeding, paresthesia, chronic pain, injury to small bowel, ligation of the round ligament, and recurrence. All questions were answered. Inge Ryan M.D. Pager: [phone] [facility] [address] [place] [address], [address] [place] [address] Office: [phone] 04/30/25 0857 <Electronically signed by Inge Ryan MD> Cosigner Signature (if applicable): CC: Dr. Rey Hussein MD; Dr. Inge Ryan MD~ Signed [facility] Work Phone: 1(392) 575-578309-25-2025 Consult note Author Judycarlos Maddox [facility] Note Date/Time April 30, 2025 8:52am [facility] Medical Records Department [address] [place] [address] Pre-Anesthesia Evaluation 04/30/25 0844 MR#: [id number] Acct: [id number] Name: MOHINI OLIVARES Rep #:[id number] : 1940 84 From: Judy MORAES PCP: Dr. Rey Hussein MD Status:REG S DC Y Race: C Location: [place] [address] ASA Classification* ASA Classification ASA Classification: 2 Assessment & Plan Anesthesia* Anesthesia Assessment Anesthesia Assessment: Discussed sedation and/or anesthesia options, risks, benefits, and alternatives with patient/parents/legal guardian/POA. Questions invited. The patient/parents/legal guardian/POA seems to understand and agrees to proceedwith anesthesia plan. Reviewed the physical assessment, medical history, allergy history and patient home medications list prior to surgery/procedure/anesthetic and documented any changes. Performed airway and anesthesia risk assessments. Anesthesia Type Anesthesia Type: General History Source History Obtained from:: Patient and Chart Anesthesia Focused Assessment* Temperature: 97.6 F Pulse Rate: 47 Blood Pressure: 118/56 Respiratory Rate: 16 Pulse Ox: 97 Oxygen Delivery Method: Room Air Airway Assessment Mouth opens: >3 cm Mallampati Score: III Teeth Condition: Intact Neck Range of motion (ROM): Limited ROM Labs Anesthesia Preop lab: CBC WBC, (4.4-11.0) 5.8 K/mm3 11/14/23, 14:18 RBC, (4.2-5.4) 5.00 M/mm3 11/14/23, 14:18 Hgb, (12.0-15.0) 14.6 g/dL 11/14/23, 14:18 Hct, (37-47) 44.4 % 11/14/23, 14:18 Plt Count, (150-450) 203 K/mm3 11/14/23, 14:18 CHEMISTRY Potassium, (3.3-5.1) 4.6 mmol/L 01/09/25, 08:39 Sodium, (133-145) 142 mmol/L 01/09/25, 08:39 BUN, (4-19) 20 mg/dL H 01/09/25, 08:39 Creatinine, (0.70-1.20) 0.85 mg/dL 01/09/25, 08:39 Glucose, (70-99) 102 mg/dL H 01/09/25, 08:39 TSH, (0.358-3.74) 3.54 uIU/mL 04/23/15, 07:42 COAG Pre-Assessment Diagnosis/Proposed Procedure Planned Operative Procedure(s): (R) Lap Robotic Right poss bilateral Inguinal Hernia w/mesh Anesthesia History 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 When Was Last Pacemaker Check QUESTION #4 FULL TEXT: You/Your Family Experience fever (hyperthermia) with Anesthesia Any additional information?: No Last Oral Intake Last Oral intake: Last Oral Intake NPO since 21:30 04/30/25 08:21 Meds taken in AM with sips of Yes 04/30/25 08:21 water? Meds patient instructed to take am of surgery Any additional information?: Yes NPO since: 06:45 Meds taken in AM with sips of water?: Yes Meds patient instructed to take am of surgery: amlodipine and metoprolol PONV PONV - blast furnace blower: PONV - blast furnace blower Female Yes 04/16/25 08:12 HX of Motion Sickness No 04/16/25 08:12 HX of N/V After Surgery No 04/16/25 08:12 Non-Smoker Yes 04/16/25 08:12 Duration of Surgery greater Yes 04/16/25 08:12 than 60 minutes Number of Risk Factors 3 04/16/25 08:12 PONV Score Moderate Risk 04/16/25 08:12 Any additional information?: No Height & Weight Height & Weight: Anesthesia: Height & Weight Height 5 ft 4 in 04/30/25 08:21 Weight: 71.4 kg 04/30/25 08:21 Body Mass Index (BMI) 27.0 04/30/25 08:21 Respiratory Assessment Respiratory Assessment - blast furnace blower: Respiratory Tract Infection Hx - blast furnace blower Hx Respiratory Tract Infection No 04/16/25 08:12 Any additional information?: No STOP Sleep Apnea STOP Sleep Apnea - blast furnace blower: STOP Sleep Apnea - blast furnace blower Hx Hypertension Yes: PER PT, CONTROLLED ON 04/16/25 08:12 MEDS Hx Sleep Apnea No 04/16/25 08:12 CPAP BIPAP Do you snore loudly (louder No 04/16/25 08:12 than talking or can be heard Do you often feel tired/ No 04/16/25 08:12 fatigued/ sleepy during daytime? Has anyone observed you stop No 04/16/25 08:12 breathing during sleep? STOP Results Negative 04/16/25 08:12 QUESTION #5 FULL TEXT : Do you snore loudly (louder than talking or can be heard through closed doors)? 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 Specify any problems Hx of Preganancy in last 3 No 04/16/25 08:12 Months Nurse Filling Out Transfusion LIZA 04/16/25 08:12 & Questions: Date: 04/16/25 04/16/25 08:12 Time: 08:15 04/16/25 08:12 Patient unable to answer at this time (ie. confused, unrespo Any additional information?: No /Reproduction History /Reproductive History - blast furnace blower: /Reproductive Hx- blast furnace blower Hx Now No 04/16/25 08:12 Gestational Age (in weeks): EDC: Hx Hx Para Hx Section SAB No 04/16/25 08:12 Any additional information?: No Active Medications Active Medications: Current Medications Generic Name Dose Route Start Last Admin Trade Name Freq PRN Reason Stop Dose Admin Clindamycin Phosphate 900 mg in 50 mls @ 75 mls/hr 04/30/25 09:45 Cleocin IV 04/30/25 10:24 INTRAOP ONE Lactated Ringer's 1,000 mls @ 15 mls/hr 04/30/25 08:15 04/30/25 08:25 IV 15 mls/hr .Q48H SILVIA Administration PFSH Medical History (Updated 04/16/25 @ 08:23 by Roseanna London) Wears glasses Ambulates with cane OAB (overactive bladder) Non-smoker Hypertension History of stress test History of echocardiogram Cardiology follow-up encounter Right inguinal hernia Osteoarthritis of right knee Holter monitor, abnormal Syncope Strain of left knee Difficulty balancing Incontinence Knee pain Cancer of skin Arthritis Hx of fracture of wrist Right knee DJD Right knee pain Melanoma Basal cell carcinoma Chest pain Osteoarthritis Home Medications ?Medication ?Instructions ?Recorded ?Last Taken ?Type multivitamin (Daily Multi-Vitamin 1 tab PO DAILY 10/19 Unknown History tablet) [id number]-[id number] [id number] 1 tab PO DAILY 02/15/23 Unknown History [Citracal Plus] glucosamine HCl 500 mg tablet 500 mg PO DAILY 02/15/23 Unknown History vibegron 75 mg tablet (Gemtesa) 75 mg PO DAILY 3 Unknown History lisinopril 10 mg tablet 10 mg PO DAILY #30 tabs 09/07 02/26 Unknown Rx metoprolol succinate 25 mg 25 mg PO QDAY 10/09/2404/07 History tablet,extended release 24 hr naproxen 500 mg tablet 250 mg PO BID PRN pain 10/09 Unknown History amlodipine 5 mg tablet 5 mg PO DAILY 04/16/2504/30 History Allergy/AdvReac Type Severity Reaction Status Date / Time ampicillin Allergy Unknown unknown Verified 04/30/25 08:19 amoxicillin Allergy Rash Verified 04/30/25 08:19 Family History Mother Hypertension Heart disease Cancer Melanoma Father Emphysema of lung Grandmother Diabetes Grandfather Myocardial infarction Brother Melanoma Other Right knee DJD Surgical History (Updated 04/16/25 @ 08:12 by Roseanna London) History of colonoscopy History of total right knee replacement (~04/2024) History of dilatation and curettage History of cataract extraction Social History Smoking Status: Never smoker alcohol intake: never substance use type: does not use caffeine: Yes (Occasionally) Review of Systems (Anesthesia) ROS Narrative System reviewed and no additional complaints, except as documented. 04/30/25 0852 <Electronically signed by Judy Maddox CRNA> Date _ Judy Laguerreigner Signature: Date CC: ~ Signed [facility] Work Phone: 1(708) 149-273009-25-2025 History and physical note [facility] Medical Records Department [address] [place] [address] H&P Exam - Surgical 04/30/25 0846 MR#: [id number] Acct: [id number] Name: MOHINI OLIVARES Rep #:[id number] : 1940 84 From: Inge Ryan MD PCP: Dr. Rey Hussein MD Status:REG S MN Location: [place] [address] HPI - General General Date of Service: 04/30/25 HPI Narrative MOHINI OLIVARES, is a 84 F who presents for robotic right inguinal hernia repair possible bilateral. Patient denies any changes since her office visit. Did have her Mohs surgery about a week ago for her nose. Office visit 03/27/2025 HPI HPI: 84-year-old female presents due to a right inguinal hernia. Patient states her PCP noted about a year ago. Patient had a last 2 to 3 months she does notice a bulge there denies any pain. Patient is interested in having it repaired. Patient currently does have a Mohs surgery for the left side of hernose on April 22 and also has a melanoma on the back of her neck but will be evaluated at that time as well. Patient would prefer surgery after the Mohs surgery. [facility] Medical History (Updated 04/16/25 @ 08:23 by Roseanna London) Wears glasses Ambulates with cane OAB (overactive bladder) Non-smoker Hypertension History of stress test History of echocardiogram Cardiology follow-up encounter Right inguinal hernia Osteoarthritis of right knee Holter monitor, abnormal Syncope Strain of left knee Difficulty balancing Incontinence Knee pain Cancer of skin Arthritis Hx of fracture of wrist Right knee DJD Right knee pain Melanoma Basal cell carcinoma Chest pain Osteoarthritis Home Medications ?Medication ?Instructions ?Recorded ?Last Taken ?Type multivitamin (Daily Multi-Vitamin 1 tab PO DAILY 10/19 Unknown History tablet) [id number]-[id number] [id number] 1 tab PO DAILY 02/15/23 Unknown History [Citracal Plus] glucosamine HCl 500 mg tablet 500 mg PO DAILY 02/15/23 Unknown History vibegron 75 mg tablet (Gemtesa) 75 mg PO DAILY 3 Unknown History lisinopril 10 mg tablet 10 mg PO DAILY #30 tabs 09/07 02/26 Unknown Rx metoprolol succinate 25 mg 25 mg PO QDAY 10/09/2404/07 History tablet,extended release 24 hr naproxen 500 mg tablet 250 mg PO BID PRN pain 10/09 Unknown History amlodipine 5 mg tablet 5 mg PO DAILY 04/16/2504/30 History Allergy/AdvReac Type Severity Reaction Status Date / Time ampicillin Allergy Unknown unknown Verified 04/30/25 08:19 amoxicillin Allergy Rash Verified 04/30/25 08:19 Family History Mother Hypertension Heart disease Cancer Melanoma Father Emphysema of lung Grandmother Diabetes Grandfather Myocardial infarction Brother Melanoma Other Right knee DJD Surgical History (Updated 04/16/25 @ 08:12 by Roseanna London) History of colonoscopy History of total right knee replacement (~04/2024) History of dilatation and curettage History of cataract extraction Social History Smoking Status: Never smoker alcohol intake: never substance use type: does not use caffeine: Yes (Occasionally) Vital Signs Vital Signs Vital Signs: 04/30/25 08:21 04/30/25 08:21 Temperature 97.6 F L Temperature Source Temporal Pulse Rate 47 L Respiratory Rate 16 Respiratory Pattern Normal Blood Pressure 118/56 L Blood Pressure Mean 76 Blood Pressure Source Monitor Blood Pressure Position Semi-Fowlers Blood Pressure Location Left Arm Pulse Ox 97 Oxygen Delivery Method Room Air Weight Weight: 157 lb 6.561 oz Body Mass Index (BMI) 27.0 Physical Exam Const alert, oriented x3 and no apparent distress HEENT normocephalic and head/scalp atraumatic Resp normal respiratory effort Cardio regular rate GI soft to palpation and non-tender; Negative for non-distended GI Narrative: Right inguinal hernia reducible. Palpation: Negative for guarding Extremity no clubbing, cyanosis or edema Skin no rashes or lesions noted Neuro CN's II-XII intact bilaterally Psych mental status grossly normal Assessment & Plan Assessment/Plan (1) Right inguinal hernia: PLAN: Plan Plan to do robotic right inguinal hernia repair with mesh, possible bilateral. Reviewed the procedure with the patient including the risks, including but not limited to infection, bleeding, paresthesia, chronic pain, injury to small bowel, ligation of the round ligament, and recurrence. All questions were answered. Inge Ryan M.D. Pager: [phone] [facility] [address] [place] [address], [facility], [address] [place] [address] Office: [phone] 04/30/25 0897 Cosigner Signature (if applicable): CC: Dr. Rey Hussein MD; Dr. Inge Ryan MD~ Signed [facility]09-25-2025 Consult note [facility] Medical Records Department [address] [place] [address] Pre-Anesthesia Evaluation 04/30/25 0844 MR#: [id number] Acct: [id number] Name: MOHINI OLIVARES Rep #:[id number] : 1940 84 From: Judy MORAES PCP: Dr. Rey Hussein MD Status:REG S DC Y Race: C Location: [place] [address] ASA Classification* ASA Classification ASA Classification: 2 Assessment & Plan Anesthesia* Anesthesia Assessment Anesthesia Assessment: Discussed sedation and/or anesthesia options, risks, benefits, and alternatives with patient/parents/legal guardian/POA. Questions invited. The patient/parents/legal guardian/POA seems to understand and agrees to proceedwith anesthesia plan. Reviewed the physical assessment, medical history, allergy history and patient home medications list prior to surgery/procedure/anesthetic and documented any changes. Performed airway and anesthesia risk assessments. Anesthesia Type Anesthesia Type: General History Source History Obtained from:: Patient and Chart Anesthesia Focused Assessment* Temperature: 97.6 F Pulse Rate: 47 Blood Pressure: 118/56 Respiratory Rate: 16 Pulse Ox: 97 Oxygen Delivery Method: Room Air Airway Assessment Mouth opens: >3 cm Mallampati Score: III Teeth Condition: Intact Neck Range of motion (ROM): Limited ROM Labs Anesthesia Preop lab: CBC WBC, (4.4-11.0) 5.8 K/mm3 11/14/23, 14:18 RBC, (4.2-5.4) 5.00 M/mm3 11/14/23, 14:18 Hgb, (12.0-15.0) 14.6 g/dL 11/14/23, 14:18 Hct, (37-47) 44.4 % 11/14/23, 14:18 Plt Count, (150-450) 203 K/mm3 11/14/23, 14:18 CHEMISTRY Potassium, (3.3-5.1) 4.6 mmol/L 01/09/25, 08:39 Sodium, (133-145) 142 mmol/L 01/09/25, 08:39 BUN, (4-19) 20 mg/dL H 01/09/25, 08:39 Creatinine, (0.70-1.20) 0.85 mg/dL 01/09/25, 08:39 Glucose, (70-99) 102 mg/dL H 01/09/25, 08:39 TSH, (0.358-3.74) 3.54 uIU/mL 04/23/15, 07:42 COAG Pre-Assessment Diagnosis/Proposed Procedure Planned Operative Procedure(s): (R) Lap Robotic Right poss bilateral Inguinal Hernia w/mesh Anesthesia History 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 When Was Last Pacemaker Check QUESTION #4 FULL TEXT: You/Your Family Experience fever (hyperthermia) with Anesthesia Any additional information?: No Last Oral Intake Last Oral intake: Last Oral Intake NPO since 21:30 04/30/25 08:21 Meds taken in AM with sips of Yes 04/30/25 08:21 water? Meds patient instructed to take am of surgery Any additional information?: Yes NPO since: 06:45 Meds taken in AM with sips of water?: Yes Meds patient instructed to take am of surgery: amlodipine and metoprolol PONV PONV - blast furnace blower: PONV - blast furnace blower Female Yes 04/16/25 08:12 HX of Motion Sickness No 04/16/25 08:12 HX of N/V After Surgery No 04/16/25 08:12 Non-Smoker Yes 04/16/25 08:12 Duration of Surgery greater Yes 04/16/25 08:12 than 60 minutes Number of Risk Factors 3 04/16/25 08:12 PONV Score Moderate Risk 04/16/25 08:12 Any additional information?: No Height & Weight Height & Weight: Anesthesia: Height & Weight Height 5 ft 4 in 04/30/25 08:21 Weight: 71.4 kg 04/30/25 08:21 Body Mass Index (BMI) 27.0 04/30/25 08:21 Respiratory Assessment Respiratory Assessment - blast furnace blower: Respiratory Tract Infection Hx - blast furnace blower Hx Respiratory Tract Infection No 04/16/25 08:12 Any additional information?: No STOP Sleep Apnea STOP Sleep Apnea - blast furnace blower: STOP Sleep Apnea - blast furnace blower Hx Hypertension Yes: PER PT, CONTROLLED ON 04/16/25 08:12 MEDS Hx Sleep Apnea No 04/16/25 08:12 CPAP BIPAP Do you snore loudly (louder No 04/16/25 08:12 than talking or can be heard Do you often feel tired/ No 04/16/25 08:12 fatigued/ sleepy during daytime? Has anyone observed you stop No 04/16/25 08:12 breathing during sleep? STOP Results Negative 04/16/25 08:12 QUESTION #5 FULL TEXT : Do you snore loudly (louder than talking or can be heard through closeddoors)? 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 Specify any problems Hx of Preganancy in last 3 No 04/16/25 08:12 Months Nurse Filling Out Transfusion MGRIFFITH 04/16/25 08:12 & Questions: Date: 04/16/25 04/16/25 08:12 Time: 08:15 04/16/25 08:12 Patient unable to answer at this time (ie. confused, unrespo Any additional information?: No /Reproduction History /Reproductive History - blast furnace blower: /Reproductive Hx- blast furnace blower Hx Now No 04/16/25 08:12 Gestational Age (in weeks): EDC: Hx Hx Para Hx Section SAB No 04/16/25 08:12 Any additional information?: No Active Medications Active Medications: Current Medications Generic Name Dose Route Start Last Admin Trade Name Freq PRN Reason Stop Dose Admin Clindamycin Phosphate 900 mg in 50 mls @ 75 mls/hr 04/30/25 09:45 Cleocin IV 04/30/25 10:24 INTRAOP ONE Lactated Ringer's 1,000 mls @ 15 mls/hr 04/30/25 08:15 04/30/25 08:25 IV 15 mls/hr .Q48H SILVIA Administration PFSH Medical History (Updated 04/16/25 @ 08:23 by Roseanna London) Wears glasses Ambulates with cane OAB (overactive bladder) Non-smoker Hypertension History of stress test History of echocardiogram Cardiology follow-up encounter Right inguinal hernia Osteoarthritis of right knee Holter monitor, abnormal Syncope Strain of left knee Difficulty balancing Incontinence Knee pain Cancer of skin Arthritis Hx of fracture of wrist Right knee DJD Right knee pain Melanoma Basal cell carcinoma Chest pain Osteoarthritis Home Medications ?Medication ?Instructions ?Recorded ?Last Taken ?Type multivitamin (Daily Multi-Vitamin 1 tab PO DAILY 10/19 Unknown History tablet) [id number]-zee-ooc [id number] 1 tab PO DAILY 02/15/23 Unknown History [Citracal Plus] glucosamine HCl 500 mg tablet 500 mg PO DAILY 02/15/23 Unknown History vibegron 75 mg tablet (Gemtesa) 75 mg PO DAILY 3 Unknown History lisinopril 10 mg tablet 10 mg PO DAILY #30 tabs 09/07 02/26 Unknown Rx metoprolol succinate 25 mg 25 mg PO QDAY 10/09/2404/07 History tablet,extended release 24 hr naproxen 500 mg tablet 250 mg PO BID PRN pain 10/09 Unknown History amlodipine 5 mg tablet 5 mg PO DAILY 04/16/2504/30 History Allergy/AdvReac Type Severity Reaction Status Date / Time ampicillin Allergy Unknown unknown Verified 04/30/25 08:19 amoxicillin Allergy Rash Verified 04/30/25 08:19 Family History Mother Hypertension Heart disease Cancer Melanoma Father Emphysema of lung Grandmother Diabetes Grandfather Myocardial infarction Brother Melanoma Other Right knee DJD Surgical History (Updated 04/16/25 @ 08:12 by Roseanna London) History of colonoscopy History of total right knee replacement (~04/2024) History of dilatation and curettage History of cataract extraction Social History Smoking Status: Never smoker alcohol intake: never substance use type: does not use caffeine: Yes (Occasionally) Review of Systems (Anesthesia) ROS Narrative System reviewed and no additional complaints, except as documented. 04/30/25 0852 DENTURE FINISHER> Date _ Judy Maddox DENTURE FINISHER Cosigner Signature: Date CC: ~ Signed [facility]08-22-2025 Evaluation note* Diagnosis Onset Date Resolution Status Admit Date Right inguinal hernia acute Mar ust 2024 12:27pm Right inguinal hernia acute Apr 7:51am Constipation acute May 052024 9:14am Nocturia acute April 9:14am Urge incontinence acute Septemb er 2024 9:14am Urinary retention acute [facility] er 2024 9:14am [facility] Work Phone: 1(732) 416-890708-22-2025 Evaluation note* Diagnosis Onset Date Resolution Status Admit Date Right inguinal hernia acute Aug ust 2024 12:27pm Right inguinal hernia acute Sep 2024 7:51am Constipation acute May 052024 9:14am Nocturia acute April 9:14am [facility]:14[facility] Urinary retention acute [facility] er 2024 9:14am S/P bilateral inguinal herni a repair acute May 15 1:03pm [facility] Work Phone: 1(764) 974-384303-06-2025 Evaluation note* Diagnosis Onset Date Resolution Status Admit Date Syncope acute October 09 10:14am Aortic stenosis chronic October 10:14am Bradycardia chronic October 09 10:14am [facility] Work Phone: 1(244) 225-839909-25-2024 Note Discharge Instructions Thank you for allowing [facility] to assist you with your healthcare needs. The following is importantdischarge information regarding your hospital visit. Your Care Team REY HUSSEIN MD, LISA APRN-LILLY LEACH MD Your Diagnosis HTN (hypertension) OA (osteoarthritis) Status post total right knee replacement What to do next Follow Up Appointments Follow Up with [facility] Physical Therapy When:05/02/2024 02:30 PM EDT Where:[address] [place] [address]- [phone] Additional Information: This is your first physical therapy appointment. Follow- up as scheduled. Follow Up with [facility] MULLINS, Orthopedic When:05/13/2024 03:15 PM EDT Where:[address] [facility] [address] [facility], [place], [place] [address]- Additional Information: This is your post-op appointment. Follow-up as scheduled. Allergies amoxicillin rash ampicillin rash Medications Please ask your primary doctor or pharmacist before taking any other medication not listed, including over the counter drugs, herbal medications, vitamins and or supplements as they may interact withyour home medications. What How Much When Why Instructions Last Dose New acetaminophen (Tylenol) 1,000 Milligram by mouth Three (3) times a day not to exceed 3000 mg/ day TODAY @ 11:15 AM New aspirin (aspirin 81 mg oral delayed release tablet) 1 tab(s) by mouth Two (2) times a day Duration: 30 Days Take 81 mg aspirin twice daily with food for 4 weeks postoperatively for DVT prophylaxis. Pickup at [facility] TODAY @ 11:15 AM New docusate-senna (Senokot S 50 mg-8.6 mg oral tablet) 2 tab(s) by mouth Two (2) times a day Duration: 3 Days Take until first bowel movement, then as needed Pickup at [facility] TODAY @ 11:15 AM New famotidine (Pepcid 20 mg oral tablet) 1 tab(s) by mouth Once a day Pickup at [facility] TODAY @ 11:15 AM New meloxicam (Mobic 7.5 mg oral tablet) 1 tab(s) by mouth Twice daily with meals Do not take any other nonsteroidal anti-inflammatories while on meloxicam/ Mobic. Pickup at [facility] DID NOT TAKE New oxyCODONE (oxyCODONE 5 mg oral tablet ( IMMEDIATE release )) See instructions Status post total right knee replacement 1-2 tab(s) Oral q4h, As needed for as needed for pain Pickup at [facility] DID NOT TAKE Unchanged amLODIPine (amLODIPine 10 mg oral tablet) 1 tab(s) by mouth Once a day TODAY @ 11:15 AM Unchanged calcium carbonate (calcium (as carbonate) 600 mg oral tablet) 1 tab(s) by mouth Once a day DID NOT TAKE Unchanged cholecalciferol (Vitamin D3 25 mcg (1000 intl units) oral capsule) 1 cap by mouth Every day TODAY @ 11:15 AM Unchanged glucosamine (glucosamine 500 mg oral capsule) 1 cap by mouth Every day DID NOT TAKE Unchanged lisinopril (lisinopril 20 mg oral tablet) 0.5 tab(s) by mouth Every day TODAY @ 11:15 AM Unchanged metoprolol (Metoprolol Succinate ER 25 mg oral TABLET extended release) 1 tab(s) by mouth Once a day TODAY @ 12:45 PM Unchanged multivitamin (Multivitamin) 1 tab(s) by mouth Every day TODAY @ 12:45 PM Unchanged vibegron (Gemtesa 75 mg oral tablet) 1 tab(s) by mouth Once a day TODAY @ 11:15 AM Pharmacy Information [facility]: [id number] [place] [phone] What How Much When Comments Stop Taking naproxen (naproxen 500 mg oral tablet) 0.5 tab(s) by mouth Twice daily with meals as needed for for pain Please take this list to your next doctor s visit. Bring all medications you take, including over the counter medications, herbals and other supplements with you to your doctor s visit. Patients and families are reminded to discard old lists and to update any records with all medication providers or retail pharmacies. Medication Leaflets meloxicam (oral/injection) (sayra OKS i ricardo) Anjeso, Mobic, Vivlodex What is the most important information I should know about meloxicam? Meloxicam can increase your risk of fatal heart attack or stroke. Do not use this medicine just before or after heart bypass surgery (coronary artery bypass graft, or CABG). Meloxicam may also cause stomach or intestinal bleeding, which can be fatal. What is meloxicam? Meloxicam is a nonsteroidal anti-inflammatory drug (NSAID) that is used to treat osteoarthritis or rheumatoid arthritis in adults. Meloxicam is also used to treat juvenile rheumatoid arthritis in children who are at least 2 years old. The Anjeso brand of meloxicam is used to treat moderate to severe pain in adults. Vivlodex is for use only in adults. Meloxicam may also be used for purposes not listed in this medication guide. What should I discuss with my healthcare provider before receiving meloxicam? Meloxicam can increase your risk of fatal heart attack or stroke. Do not use this medicine just before or after heart bypass surgery (coronary artery bypass graft, or CABG). Meloxicam may also cause stomach or intestinal bleeding, which can be fatal. Meloxicam may also cause stomach or intestinal bleeding, which can be fatal. These conditions can occur without warning while you are using meloxicam, especially in older adults. You should not use meloxicam if you are allergic to it, or if you ever had an asthma attack or severe allergic reaction after taking aspirin or an NSAID. Tell your doctor if you have ever had: heart disease, high blood pressure, high cholesterol, diabetes, or if you smoke; a heart attack, stroke, or blood clot; ulcers or stomach bleeding; asthma; kidney disease (or if you are on dialysis); liver disease; or fluid retention. If you are , you should not take meloxicam unless your doctor tells you to. Taking an NSAIDduring the last 20 weeks of can cause serious heart or kidney problems in the unborn babyand possible complications with your . Meloxicam may cause a delay in ovulation (the release of an egg from an ovary). You should not takemeloxicam if you are undergoing fertility treatment, or are otherwise trying to get . Ask a doctor if it is safe to breastfeed while using this medicine. Meloxicam is not approved for use by anyone younger than 2 years old. How is meloxicam given? Follow all directions on your prescription label and read all medication guides or instruction sheets. Use the lowest effective dose for your condition. Meloxicam oral is taken by mouth. Meloxicam injection is given as an infusion into a vein. A healthcare provider will give you this injection. Your dose needs may change if you switch to a different brand, strength, or form of this medicine. Avoid medication errors by using only the medicine your doctor prescribes. Meloxicam doses are based on weight (especially in children and teenagers). Your dose needs may change if you gain or lose weight. If you use this medicine long-term, you may need frequent medical tests. Store meloxicam oral suspension, tablets or capsules at room temperature, away from moisture and heat. Keep the bottle tightly closed when not in use. What happens if I miss a dose? Use the medicine as soon as you can, but skip the missed dose if it is almost time for your next dose. Do not use two doses at one time. What happens if I overdose? Seek emergency medical attention or call the Poison Help line at . What should I avoid while receiving meloxicam? Drinking alcohol may increase your risk of stomach bleeding. Avoid taking aspirin while you are taking meloxicam, unless your doctor tells you to. Ask a doctor or pharmacist before using other medicines for pain, fever, swelling, or cold/flu symptoms. They may contain ingredients similar to meloxicam (such as aspirin, ibuprofen, ketoprofen, or naproxen). What are the possible side effects of meloxicam? Get emergency medical help if you have signs of an allergic reaction (hives, difficult breathing, swelling in your face or throat) or a severe skin reaction (fever, sore throat, burning eyes, skin pain, red or purple skin rash with blistering and peeling). Get emergency medical help if you have signs of a heart attack or stroke: chest pain spreading to your jaw or shoulder, sudden numbness or weakness on one side of the body, slurred speech, leg swelling, feeling short of breath. Stop using meloxicam and call your doctor at once if you have: the first sign of any skin rash, no matter how mild; shortness of breath (even with mild exertion); swelling or rapid weight gain; signs of stomach bleeding--bloody or tarry stools, coughing up blood or vomit that looks like coffee grounds; liver problems--nausea, upper stomach pain, itching, tired feeling, flu-like symptoms, loss of appetite, dark urine, miguel-colored stools, jaundice (yellowing of the skin or eyes); low red blood cells (anemia)--pale skin, unusual tiredness, feeling light- headed, cold hands and feet; or kidney problems--little or no urination, swelling in your feet or ankles, feeling tired or short ofbreath. Common side effects may include: stomach pain, nausea, vomiting, heartburn; diarrhea, constipation, gas; dizziness; or cold symptoms, flu symptoms. This is not a complete list of side effects and others may occur. Call your doctor for medical advice about side effects. You may report side effects to FDA at 3-293-GKC-1586. What other drugs will affect meloxicam? Ask your doctor before using meloxicam if you take an antidepressant. Taking certain antidepressants with an NSAID may cause you to bruise or bleed easily. Tell your doctor about all your other medicines, especially: cyclosporine; lithium; methotrexate; pemetrexed; sodium polystyrene sulfonate (Kayexalate); a blood thinner (warfarin, Coumadin, Jantoven); heart or blood pressure medication, including a diuretic or 'water pill'; or steroid medicine (such as prednisone). This list is not complete. Other drugs may affect meloxicam, including prescription and fqdy-apu-pzosyix medicines, vitamins, and herbal products. Not all possible drug interactions are listed here. Where can I get more information? Your doctor or pharmacist can provide more information about meloxicam. Remember, keep this and all other medicines out of the reach of children, never share your medicines with others, and use this medication only for the indication prescribed. Every effort has been made to ensure that the information provided by [employer]. [employer]') is accurate, up-to-date, and complete, but no guarantee is made to that effect. Drug information contained herein may be time sensitive. [employer] information has been compiled for use by healthcare practitioners and consumers in the [place] and therefore [employer] does not warrant that uses outside of the [place] are appropriate, unless specifically indicated otherwise. [employer] drug information does not endorse drugs, diagnose patients or recommend therapy. [employer] drug information isan informational resource designed to assist licensed healthcare practitioners in caring for their p atients and/or to serve consumers viewing this service as a supplement to, and not a substitute for, the expertise, skill, knowledge and judgment of healthcare practitioners. The absence of a warningfor a given drug or drug combination in no way should be construed to indicate that the drug or drug combination is safe, effective or appropriate for any given patient. [employer] does not assume any responsibility for any aspect of healthcare administered with the aid of information [employer] provides. The information contained herein is not intended to cover all possible uses, directions, precautions, warnings, drug interactions, allergic reactions, or adverse effects. If you have questions about the drugs you are taking, check with your doctor, nurse or pharmacist. Copyright 5538-0594 [employer]. Version: 16.. Revision Date: 10/11/2022. oxycodone (ox i KOE done) Oxaydo, OxyCONTIN, Roxicodone, RoxyBond, Xtampza ER What is the most important information I should know about oxycodone? MISUSE OF OPIOID MEDICINE CAN CAUSE ADDICTION, OVERDOSE, OR . Fatal side effects may occur if you also drink alcohol or use other drugs that cause drowsiness or slow breathing. Using opioid medicine during may cause life-threatening withdrawal symptoms in the . What is oxycodone? Oxycodone is an opioid pain medication used to treat moderate to severe pain. Oxycodone is usually given after other treatments did not work or were not tolerated. Extended-release oxycodone is for bjisus-rcy-iordg treatment of severe and chronic pain that requires longer treatment. This medicine is not for use on an as-needed basis. Oxycodone may also be used for purposes not listed in this medication guide. What should I discuss with my healthcare provider before taking oxycodone? You should not use oxycodone if you are allergic to it, or if you have severe asthma, breathing problems or a stomach or bowel obstruction (including paralytic ileus). Tell your doctor if you have ever had: other breathing problems, sleep apnea (breathing that stops during sleep); a head injury, brain tumor, high pressure inside the skull, or seizures, drug or alcohol addiction,or mental illness; if you have used an MAO inhibitor in the past 14 days, such as isocarboxazid, linezolid, methylene blue injection, phenelzine, or tranylcypromine; urination problems, problems with your gallbladder, pancreas, thyroid, or adrenal gland; or liver or kidney disease. Most forms of oxycodone are not approved for use in people under 18 years old. The extended-releasetablets should not be given to a child younger than 11 years old. Tell your doctor if you also use stimulant medicine, opioid medicine, herbal products, or medicine for depression, mental illness, Parkinson's disease, migraine headaches, serious infections, or prevention of nausea and vomiting. An interaction with oxycodone could cause a serious condition called serotonin syndrome. May harm an unborn baby. Tell your doctor if you are or plan to become . If you use oxycodone during , your baby could be born with life-threatening withdrawal symptoms, andmay need medical treatment for several weeks. Do not breastfeed. Oxycodone in breast milk can cause life-threatening side effects in a nursing baby. Long-term oxycodone may affect fertility in men or women. could be harder to achieve while either parent is using this medicine. How should I take oxycodone? Follow the directions on your prescription label and read all medication guides or instruction sheets. Never use oxycodone in larger amounts, or for longer than prescribed. Tell your doctor if you feel an increased urge to use more of this medicine. Never share opioid medicine with another person, especially someone with a history of drug addiction. MISUSE CAN CAUSE ADDICTION, OVERDOSE, OR . Keep the medicine where others cannot get to it. Selling or giving away this medicine is against the law. Never crush a pill or use the liquid to inhale the mixture or inject it into your vein. This could result in . Your dose needs may change if you switch to a different brand, strength, or form of this medicine. Avoid medication errors by using exactly as directed on the label, or as prescribed by your doctor. Stop taking all other cwbpbd-tma-exgjg opioid pain medicines when you start taking extended-releaseoxycodone. Swallow the extended-release forms whole to avoid exposure to a potentially fatal overdose. Do not crush, chew, break, open, or dissolve. Take the extended-release capsules with food. Read and carefully follow the instructions for use onhow to prepare and take this medicine if you cannot swallow extended release capsules whole or you use a feeding tube. Ask your doctor or pharmacist if you don't understand these instructions. Measure liquid medicine with the supplied measuring device (not a kitchen spoon). You may be given other medications to help prevent or treat certain side effects. You may have withdrawal symptoms if you stop using oxycodone suddenly. Ask your doctor before stopping the medicine. Store at room temperature away from moisture and heat. Keep your medicine in a place where no one can use it improperly. Do not keep leftover medicine. Just one dose can cause in someone using it accidentally or improperly. Ask your pharmacist about a drug take-back program, or flush the unused medicine down the toilet. What happens if I miss a dose? Since oxycodone is used for pain, you are not likely to miss a dose. Skip any missed dose if it is almost time for your next dose. Do not use two doses at one time. What happens if I overdose? Seek emergency medical attention or call the Poison Help line at . An overdose can befatal, especially in a child or person using opioid medicine without a prescription. Your doctor may recommend you get naloxone (a medicine to reverse an opioid overdose) and keep it with you at all times. A person caring for you can give the naloxone if you stop breathing or don't wake up. Your caregiver must still get emergency medical help and may need to perform CPR (cardiopulmonary resuscitation) on you while waiting for help to arrive. Anyone can buy naloxone from a pharmacy or local health department. Make sure any person caring foryou knows where you keep naloxone and how to use it. What should I avoid while taking oxycodone? Do not drink alcohol or any products that contain alcohol. Dangerous side effects or could occur. Avoid driving or hazardous activity until you know how this medicine will affect you. Dizziness or drowsiness can causing falls, accidents, or severe injuries. Also avoid getting up too fast from a sitting or lying position, or you may feel dizzy. What are the possible side effects of oxycodone? Get emergency medical help if you have signs of an allergic reaction: hives, difficult breathing, swelling of your face, lips, tongue, or throat. Opioid medicine can slow or stop your breathing, and may occur, especially if you drink alcohol or use other drugs that cause drowsiness or slow breathing. A person caring for you should give naloxone and/or seek emergency medical attention if you have slow breathing with long pauses, blue colored lips, or if you are hard to wake up. Call your doctor at once if you have: slow heart rate, weak pulse, fainting, slow breathing (breathing may stop); chest pain, fast or pounding heartbeats; a seizure, extreme drowsiness; or decreased adrenal gland hormones--nausea, vomiting, stomach pain, loss of appetite, feeling tired or light-headed, muscle or joint pain, skin discoloration, craving salty foods. Serious breathing problems may be more likely in older adults and in those who are debilitated or have wasting syndrome or chronic breathing disorders. Seek medical attention right away if you have symptoms of serotonin syndrome, such as: agitation, hallucinations, fever, sweating, shivering, fast heart rate, muscle stiffness, twitching, loss of coordination, nausea, vomiting, or diarrhea. Common side effects may include: sleep problems (insomnia), itching; drowsiness, headache, dizziness, tiredness; or constipation, stomach pain, nausea, vomiting. This is not a complete list of side effects and others may occur. Call your doctor for medical advice about side effects. You may report side effects to FDA at 6-941-HKG-1852. What other drugs will affect oxycodone? You may have a fatal oxycodone overdose if you start or stop using certain medicines. Tell your doctor about all your medications. Tell your doctor about all your medications especially if you use medicine to treat HIV, antibiotic, antifungal medication, or seizure medication. Many other drugs can be dangerous when used with opioid medicine. Tell your doctor if you also use: medicine for allergies, asthma, blood pressure, motion sickness, irritable bowel, or overactive bladder; other opioid medicines, a benzodiazepine sedative like Valium, Klonopin, or Xanax; sleep medicine, muscle relaxers, or other drugs that make you drowsy; or drugs that affect serotonin, such as antidepressants, stimulants, or medicine for migraines or Parkinson's disease. This list is not complete and many other drugs may affect oxycodone. This includes prescription gfujdel-mfb-ovadbql medicines, vitamins, and herbal products. Not all possible drug interactions are listed here. Where can I get more information? Your doctor or pharmacist can provide more information about oxycodone. Remember, keep this and all other medicines out of the reach of children, never share your medicines with others, and use this medication only for the indication prescribed. Every effort has been made to ensure that the information provided by [employer] is accurate, up-to-date, and complete, but no guarantee is made to that effect. Drug information contained herein may be time sensitive. [employer] information has been compiled for use by healthcare practitioners and consumers in the [place] and therefore [employer] does not warrant that uses outside of the [place] are appropriate, unless specifically indicated otherwise. [employer] drug information does not endorse drugs, diagnose patients or recommend therapy. [employer] drug information isan informational resource designed to assist licensed healthcare practitioners in caring for their p atients and/or to serve consumers viewing this service as a supplement to, and not a substitute for, the expertise, skill, knowledge and judgment of healthcare practitioners. The absence of a warningfor a given drug or drug combination in no way should be construed to indicate that the drug or drug combination is safe, effective or appropriate for any given patient. [facility] does not assume any responsibility for any aspect of healthcare administered with the aid of information [facility] provides. The information contained herein is not intended to cover all possible uses, directions, precautions, warnings, drug interactions, allergic reactions, or adverse effects. If you have questions about the drugs you are taking, check with your doctor, nurse or pharmacist. Copyright 2946-2924 [facility] [employer]. Version: 17.. Revision Date: 08/28/2023. aspirin (oral) ( pir in) Aspi-Cor, Clara Plus, Durlaza, Ecotrin, Miniprin, Vazalore What is the most important information I should know about aspirin? Aspirin can cause Anton's syndrome, a serious and sometimes fatal condition in children. What is aspirin? Aspirin is a salicylate (mj-HIM-be-ate) that is used to treat pain, and reduce fever or inflammation. Aspirin is sometimes used to treat or prevent heart attacks, strokes, and chest pain (angina). Aspirin should be used for these conditions only under the supervision of a doctor. Aspirin may also be used for purposes not listed in this medication guide. What should I discuss with my healthcare provider before taking aspirin? Using aspirin in a child or teenager with flu symptoms or chickenpox can cause a serious or fatal condition called Anton's syndrome. You should not use aspirin if you are allergic to it, or if you have: a recent history of stomach or intestinal bleeding; a bleeding disorder such as hemophilia; or if you have ever had an asthma attack or severe allergic reaction after taking aspirin or an NSAID (non-steroidal anti-inflammatory drug). Tell your doctor if you have ever had: asthma or seasonal allergies; stomach ulcers; liver disease; kidney disease; a bleeding or blood clotting disorder; gout; or heart disease, high blood pressure, or congestive heart failure. Taking aspirin during late may cause bleeding in the mother or the baby during delivery. Tell your doctor if you are or plan to become . You should not breastfeed while using this medicine. How should I take aspirin? Use exactly as directed on the label, or as prescribed by your doctor. Always follow directions on the medicine label about giving aspirin to a child. Take with food if aspirin upsets your stomach. You must chew the chewable tablet before you swallow it. Do not crush, chew, break, or open an enteric-coated or delayed/extended-release pill. Swallow it whole. Tell your doctor if you have a planned surgery. Store at room temperature away from moisture and heat. Do not use aspirin if you smell a strong vinegar odor in the aspirin bottle. The medicine may no longer be effective. What happens if I miss a dose? Aspirin is used when needed. If you are on a dosing schedule, skip any missed dose. Do not use two doses at one time. What happens if I overdose? Seek emergency medical attention or call the Poison Help line at . Overdose may cause stomach pain, vomiting, diarrhea, vision or hearing problems, fast or slow breathing, or confusion. What should I avoid while taking aspirin? Avoid alcohol. Heavy drinking can increase your risk of stomach bleeding. Avoid taking ibuprofen if you take aspirin to prevent stroke or heart attack. Ibuprofen can make aspirin less effective in protecting your heart and blood vessels. Ask your doctor how far apart your doses should be. Ask a doctor or pharmacist before using other medicines for pain, fever, swelling, or cold/flu symptoms. They may contain ingredients similar to aspirin (such as magnesium salicylate, ibuprofen, ketoprofen, or naproxen). What are the possible side effects of aspirin? Get emergency medical help if you have signs of an allergic reaction: hives; difficult breathing; swelling of your face, lips, tongue, or throat. Stop using aspirin and call your doctor at once if you have: ringing in your ears, confusion, hallucinations, rapid breathing, seizure (convulsions); severe nausea, vomiting, or stomach pain; bloody or tarry stools, coughing up blood or vomit that looks like coffee grounds; fever lasting longer than 3 days; or swelling, or pain lasting longer than 10 days. Common side effects may include: upset stomach, heartburn; drowsiness; or mild headache. This is not a complete list of side effects and others may occur. Call your doctor for medical advice about side effects. You may report side effects to FDA at 0-284-ERQ-1369. What other drugs will affect aspirin? Ask your doctor before using aspirin if you take an antidepressant. Taking certain antidepressants with aspirin may cause you to bruise or bleed easily. Ask a doctor or pharmacist before using aspirin with any other medications, especially: a blood thinner (warfarin, Coumadin, Jantoven), or other medication used to prevent blood clots; or other salicylates such as Nuprin Backache Caplet, Kaopectate, KneeRelief, Pamprin Cramp Formula, Pepto-Bismol, Tricosal, Trilisate, and others. This list is not complete. Other drugs may affect aspirin, including prescription and joyx-qkg-azihpyj medicines, vitamins, and herbal products. Not all possible drug interactions are listed here. Where can I get more information? Your pharmacist can provide more information about aspirin. Remember, keep this and all other medicines out of the reach of children, never share your medicines with others, and use this medication only for the indication prescribed. Every effort has been made to ensure that the information provided by [employer]. [employer]') is accurate, up-to-date, and complete, but no guarantee is made to that effect. Drug information contained herein may be time sensitive. [employer] information has been compiled for use by healthcare practitioners and consumers in the [place] and therefore [employer] does not warrant that uses outside of the [place] are appropriate, unless specifically indicated otherwise. [employer] drug information does not endorse drugs, diagnose patients or recommend therapy. [employer] drug information isan informational resource designed to assist licensed healthcare practitioners in caring for their p atients and/or to serve consumers viewing this service as a supplement to, and not a substitute for, the expertise, skill, knowledge and judgment of healthcare practitioners. The absence of a warningfor a given drug or drug combination in no way should be construed to indicate that the drug or drug combination is safe, effective or appropriate for any given patient. [employer] does not assume any responsibility for any aspect of healthcare administered with the aid of information [employer] provides. The information contained herein is not intended to cover all possible uses, directions, precautions, warnings, drug interactions, allergic reactions, or adverse effects. If you have questions about the drugs you are taking, check with your doctor, nurse or pharmacist. Copyright 7383-3474 [employer]. Version: 18.. Revision Date: 02/26/2023. famotidine (oral/injection) (fam [place] ti jigar) Heartburn Relief, Pepcid, Pepcid AC, Pepcid AC Maximum Strength, Zantac 360 What is the most important information I should know about famotidine? Follow all directions on the label and package. Use exactly as directed. What is famotidine? Famotidine is used to treat and prevent ulcers in the stomach and intestines. It also treats conditions in which the stomach produces too much acid, such as Lucia-Pardo syndrome. Famotidine also treats gastroesophageal reflux disease (GERD) and other conditions in which acid backs up from the stomach into the esophagus, causing heartburn. The Zantac 360 brand of this medicine does not contain ranitidine, a medicine that was withdrawn from market in the [place]. Famotidine may also be used for purposes not listed in this medication guide. What should I discuss with my healthcare provider before taking famotidine? Heartburn can feel like a heart attack. Get emergency medical help if you have chest pain that spreads to your jaw or shoulder. You should not use this medicine if you are allergic to famotidine or similar medicines such as ranitidine (Zantac), cimetidine (Tagamet), or nizatidine (Axid). Ask a doctor or pharmacist if this medicine is safe to use if you have: kidney disease; liver disease; cancer stomach; or long QT syndrome (in you or a family member). Ask a doctor before using this medicine if you are or . How should I take famotidine? Use exactly as directed on the label, or as prescribed by your doctor. Famotidine oral is taken by mouth. Famotidine injection is given in a vein if you are unable to take the medicine by mouth. You may take famotidine oral with or without food. Measure liquid medicine with the supplied syringe or a dose-measuring device (not a kitchen spoon). Most ulcers heal within 4 weeks of famotidine treatment, but it may take up to 8 weeks of using this medicine before your ulcer heals. Keep using the medication as directed. Call your doctor if the condition you are treating with famotidine does not improve, or if it gets worse while using famotidine. Your treatment may also include changes in diet or lifestyle habits. Follow all instructions of your doctor or dietitian. Store at room temperature away from moisture, heat, and light. Do not allow the liquid medicine to freeze. Throw away any unused famotidine liquid that is older than 30 days. What happens if I miss a dose? Take the medicine as soon as you can, but skip the missed dose if it is almost time for your next dose. Do not take two doses at one time. What happens if I overdose? Seek emergency medical attention or call the Poison Help line at . What should I avoid while taking famotidine? Drinking alcohol may increase the risk of damage to your stomach. Avoid taking other stomach acid reducers unless your doctor has told you to. However, you may take an antacid (such as Maalox, Mylanta, Gaviscon, Milk of Magnesia, Rolaids, or Tums) with famotidine. What are the possible side effects of famotidine? Get emergency medical help if you have signs of an allergic reaction: hives; difficult breathing; swelling of your face, lips, tongue, or throat. Stop using famotidine and call your doctor at once if you have: confusion, hallucinations, agitation, lack of energy; a seizure; fast or pounding heartbeats, sudden dizziness (like you might pass out); or unexplained muscle pain, tenderness, or weakness especially if you also have fever, unusual tiredness, and dark colored urine. Some side effects may be more likely in older adults and in people who have severe kidney disease. Common side effects may include: headache; dizziness; or constipation or diarrhea. This is not a complete list of side effects and others may occur. Call your doctor for medical advice about side effects. You may report side effects to FDA at 5-099-NPN-9930. What other drugs will affect famotidine? Famotidine oral can make it harder for your body to absorb other medicines you take by mouth. Tell your doctor if you are taking: cefditoren; dasatinib; delavirdine; fosamprenavir; or tizanidine (if you are taking famotidine liquid). This list is not complete. Other drugs may affect famotidine, including prescription and cmmw-sww-caivdzv medicines, vitamins, and herbal products. Not all possible drug interactions are listed here. Where can I get more information? Your doctor or pharmacist can provide more information about famotidine. Remember, keep this and all other medicines out of the reach of children, never share your medicines with others, and use this medication only for the indication prescribed. Every effort has been made to ensure that the information provided by [employer] is accurate, up-to-date, and complete, but no guarantee is made to that effect. Drug information contained herein may be time sensitive. [employer] information has been compiled for use by healthcare practitioners and consumers in the [place] and therefore [employer] does not warrant that uses outside of the [place] are appropriate, unless specifically indicated otherwise. [employer] drug information does not endorse drugs, diagnose patients or recommend therapy. [employer] drug information isan informational resource designed to assist licensed healthcare practitioners in caring for their p atients and/or to serve consumers viewing this service as a supplement to, and not a substitute for, the expertise, skill, knowledge and judgment of healthcare practitioners. The absence of a warningfor a given drug or drug combination in no way should be construed to indicate that the drug or drug combination is safe, effective or appropriate for any given patient. [employer] does not assume any responsibility for any aspect of healthcare administered with the aid of information [employer] provides. The information contained herein is not intended to cover all possible uses, directions, precautions, warnings, drug interactions, allergic reactions, or adverse effects. If you have questions about the drugs you are taking, check with your doctor, nurse or pharmacist. Copyright 2238-2344 [employer]. Version: .. Revision Date: 02/26/2023. docusate and senna (DOK keturah sate and SEN a) Colace 2-in-1, Senexon-S, Senna Plus, Senna S, Senna-Time S, Senokot S, SenoSol- SS, Stool Softener + Stimulant Laxative, Stool Softener with Laxative What is the most important information I should know about docusate and senna? Use exactly as directed on the label, or as prescribed by your doctor. What is docusate and senna? Docusate is a stool softener. Senna is a laxative. Docusate and senna is a combination medicine used to treat occasional constipation. Docusate and senna may also be used for purposes not listed in this medication guide. What should I discuss with my healthcare provider before using docusate and senna? You should not use this medicine if you are allergic to docusate or senna, or if you are also taking mineral oil. Ask a doctor or pharmacist if this medicine is safe to use if you have ever had: nausea or vomiting; stomach pain; a sudden change in bowel habits that lasts for 2 weeks or longer; or an intestinal disorder such as Crohn's disease or ulcerative colitis. Ask a doctor before using this medicine if you are or . Do not give this medicine to a child younger than 2 years old without medical advice. How should I use docusate and senna? Use exactly as directed on the label, or as prescribed by your doctor. Take docusate and senna with a full glass of water. It may be best to take this medicine at night or at bedtime. Docusate and senna should cause you tohave a bowel movement within 6 to 12 hours. Do not take docusate and senna for longer than 7 days in a row, unless your doctor tells you to. Call your doctor if your constipation does not improve or if it gets worse after taking docusate and senna. Store at room temperature away from moisture and heat. What happens if I miss a dose? Since docusate and senna is used when needed, you may not be on a dosing schedule. Skip any missed dose if it's almost time for your next dose. Do not use two doses at one time. What happens if I overdose? Seek emergency medical attention or call the Poison Help line at . Overdose symptoms may include nausea, vomiting, stomach pain, or diarrhea. What should I avoid while using docusate and senna? Ask a doctor or pharmacist before using any other laxative or other stool softener that may containingredients similar to docusate or senna. What are the possible side effects of docusate and senna? Get emergency medical help if you have signs of an allergic reaction: hives; difficulty breathing; swelling of your face, lips, tongue, or throat. Stop using docusate and senna and call your doctor at once if you have: rectal bleeding; severe stomach pain, nausea, vomiting; or no bowel movement. Common side effects may include: gas, bloating; diarrhea; or mild nausea. This is not a complete list of side effects and others may occur. Call your doctor for medical advice about side effects. You may report side effects to FDA at 7-453-NPQ-2052. What other drugs will affect docusate and senna? Other drugs may affect docusate and senna, including prescription and qdmq-drf-kzqimvl medicines, vitamins, and herbal products. Tell your doctor about all your current medicines and any medicine youstart or stop using. Where can I get more information? Your pharmacist can provide more information about docusate and senna. Remember, keep this and all other medicines out of the reach of children, never share your medicines with others, and use this medication only for the indication prescribed. Every effort has been made to ensure that the information provided by [employer] is accurate, up-to-date, and complete, but no guarantee is made to that effect. Drug information contained herein may be time sensitive. [employer] information has been compiled for use by healthcare practitioners and consumers in the [place] and therefore [employer] does not warrant that uses outside of the [place] are appropriate, unless specifically indicated otherwise. [employer] drug information does not endorse drugs, diagnose patients or recommend therapy. [employer] drug information isan informational resource designed to assist licensed healthcare practitioners in caring for their p atients and/or to serve consumers viewing this service as a supplement to, and not a substitute for, the expert (more content not included)... [facility]09-25-2024 Note Date of Service 04/30/2024 Chief Complaint right knee pain Subjective Patient seen and evaluated while resting in recliner, daughter at her side. Patient states that sheis doing well this morning and denies any significant pain in her right knee. She adds that her pain is well-controlled on oral pain medications. She denies any difficulty breathing, cough or chest pain. She has been tolerating a regular diet without any difficulty swallowing or nausea. She reportsthat she was up many times overnight emptying her bladder and feels that she is passing gas this morning. She denies any fever, chills, abdominal pain, or dysuria. Labs and vital signs reviewed and were stable. Physical exam was unremarkable. From hospitalist perspective, patient is medically optimized for discharge home today. Will defer to primary team to make final decision on discharge. All questions answered. Objective Vitals and Measurements T: 36.3 C (Oral) TMIN: 36.2 C (Oral) TMAX: 36.6 C (Oral) HR: 78 (Apical) RR: 18 BP: 126/60 SpO2: 94% HT: 161 cm WT: 71.9 kg BMI: 27.74 Intake and Output 7AM Yesterday to 7AM Today Intake and Output (Last 24 hours) Intake Oral Intake 900.00 Supplement Intake 240.00 Output Urine Count 5.00 Total Summary Total Intake 1140.00 Total Output 0.00 Fluid Balance 1140.00 Physical Exam General: No acute distress. Patient is alert, chronically ill-appearing. Skin: No rash. Skin is warm, dry and intact. HEENT: Head is normocephalic, atraumatic. Pupils are equal, round and reactive. Neck: Supple. No lymphadenopathy, thyromegaly. Lungs: Bilaterally clear but diminished without crepitation or wheeze. Unlabored. Heart: Heart is regular rhythm, S1, S2. No murmurs, gallops or rubs. Abdomen: Abdomen is soft, nontender. Bowels sounds present in all quadrants. Extremities: No clubbing, cyanosis, or edema. Peripheral pulses palpable. No calf tenderness. Rightknee surgical dressing is dry and intact. Neurological: Patient is awake and alert to person, place and time. Following simple commands, moving all extremities. Weight Dosing Weight: 71.9 kg (04/29/24) Dosing Weight: 71.9 kg (04/29/24) Medications Medications (23) Active Scheduled: (12) acetaminophen 500 mg Tablet 1,000 mg 2 tab(s), Oral, q6hr amLODIPine 5 mg tablet 10 mg 2 tab(s), Oral, qDay aspirin 81 mg EC 81 mg 1 tab(s), Oral, BIDM docusate sodium 100 mg Capsule 100 mg 1 cap(s), Oral, BID docusate-senna (Senokot S) 50 mg-8.6 mg Tablet 2 tab(s), Oral, BID famotidine 20 mg tablet 20 mg 1 tab(s), Oral, qDay lisinopril 5 mg tablet 10 mg 2 tab(s), Oral, Daily magnesium hydroxide 8% Suspension 30 mL UD 30 mL, Oral, Daily meloxicam 7.5 mg tablet 7.5 mg 1 tab(s), Oral, BIDM metoprolol succinate 25 mg ER tablet 25 mg 1 tab(s), Oral, qDay multivitamin (Myadec) with minerals Therapeutic Multiple Vitamins with Minerals Tablet 1 tab(s), Oral, qDayM vibegron 75 mg Tab 75 mg, Oral, qDay Continuous: (1) Lactated Ringers 1,000 mL 1,000 mL, Intravenous, 100 mL/hr PRN: (10) acetaminophen 325 mg Tablet 650 mg 2 tab(s), Oral, q4h diphenhydramine 25 mg tablet 25 mg 1 tab(s), Oral, q6h diphenhyDRAMINE 50 mg/mL (1 mL) INJ 25 mg 0.5 mL, IV Push, q6h ketorolac 30 mg/1 mL (2mL) vial 7.5 mg 0.25 mL, IV Push, q6h morphine 2 mg/mL 1 mL syringe 2 mg 1 mL, IV Push, q1h ondansetron 2 mg/ 1 mL 2 mL INJ 4 mg 2 mL, IV Push, q8h oxycodone 5 mg tablet (immediate release) 5 mg 1 tab(s), Oral, q4h oxycodone 5 mg tablet (immediate release) 10 mg 2 tab(s), Oral, q4h prochlorperazine 10 mg/2 mL vial 5 mg 1 mL, IV Push, q6h sodium biphosphate-sodium phosphate 19 gm-7 gm Enema 133 mL, Rectal, qDay Lab Results 04/30 05:22 WBC: 16.1 H Hgb: 12.0 Hct: 35.7 Platelet: 189 Neutrophil %: 88.9 H Glucose Level: 138 H Sodium Level: 143 Potassium Level: 5.0 BUN: 18 Creatinine Lvl (s): 0.92 Imaging Results and Diagnostics XR Knee 1 or 2 Views Right Result Date: April 29, 2024 Verified By: DAGOBERTO GERARDO DO CLINICAL STATEMENT: IMPRESSION: Total right knee arthroplasty with expected postoperative changes. EKG No qualifying data available. Assessment/Plan 1. OA (osteoarthritis) Chronic, s/p right total knee arthroplasty. POD #1. Management per primary team. Consult placed to PT and OT to evaluate and treat - following. Continue PO pain medication and antiemetics. 2. HTN (hypertension) Chronic. Continue current antihypertensives with parameters. SBP goal of 140 or less. Patient seen and evaluated this morning while resting in bed. Physical exam was unremarkable. Lab results and vital signs trends reviewed and were stable. From hospitalist perspective, patient is medically optimized for discharge home today. Hospitalist service will sign-off at this time. Please feel free to re- consult service if there are any changes in condition. Thank you for including hospitalist service in the care of your patient! DVT prophylaxis with aspirin. Code status: Full Code. Labs, diagnostic test and progress notes reviewed as noted in HPI. Plan of care discussed with patient. All questions answered. Patient verbalizes understanding and is agreeable with plan of care. This case was discussed with collaborating physician, Dr. Josh Meng. Anticipated Date of Discharge today Time Spent 35 minutes spent reviewing past diagnostic tests, reviewing lab results, vital sign trends, medicalhistory, reviewing medications and ordering home medications, examining patient, discussed plan of care with care team, collaborating with physician, and documenting in chart. Digitally Signed by MADINA GALINDO on 04/30/2024 01:28 PM [facility]09-25-2024 Hospital Discharge instructions Patient Education 04/30/2024 08:41:42 5 - [facility] Post-op Instruction 03/2017 ([id number]) [facility] Post-operative Instructions PLEASE FOLLOW [facility] POST-OP INSTRUCTIONS GIVEN WATCH FOR SIGNS OF INFECTION: call the office ([phone]) if experencing any of the following: (Usually appears 36-48 hours after surgery) Increased temperature (101 degrees Fahrenheit or higher) Redness or swelling Increased uncontrolled pain Foul odor or drainage Calf discomfort Significant swelling Or if having any chest pain, shortness of breath, or difficulty breathing or swallowing call the office or go the nearest Emergency Room. If you have any questions, please call your doctor at the number listed on your follow up instructions. Form: 338A ([id number]) R: 12/10 Follow Up Care 03/06/2024 09:22:12 With:[facility] Address: [address] [place] [phone] When:05/02/2024 14:30:00 Comments:This is your first physical therapy appointment. Follow-up as scheduled. With:MALLORY MULLINS, Orthopedic Address: [address] [place] [address] [address] [facility], [place] [address]- When:05/13/2024 15:15:00 Comments:This is your post-op appointment. Follow-up as scheduled. [facility] 09-25-2024 Note Date of Service April 30, 2024 Subjective The patient was sitting in bed upon examination. Patient denies any chest pain, shortness of breath, dizziness, lightheadedness, nausea or vomiting, or calf pain. No adverse overnight events. Pain has been controlled on medications. Patient is doing well this morning. She does feel the pain has been slightly more this morning. We did discuss her postoperative block. She has been up to the bathroom many times. Patient has no significant complaints at this time. Objective Vitals and Measurements T: 36.6 C (Oral) TMIN: 36.1 C (Temporal Artery) TMAX: 37 C HR: 71 (Monitored) RR: 18 BP: 117/50 SpO2: 94% HT: 161 cm WT: 71.9 kg BMI: 27.74 Intake and Output 7AM Yesterday to 7AM Today Intake and Output (Last 24 hours) Intake Administration Information 1230.20 Oral Intake 900.00 Supplement Intake 0.00 Output Intra-Op EBL 75.00 Urine Count 5.00 Total Summary Total Intake 2130.20 Total Output 75.00 Fluid Balance 2055.20 Physical Exam Vital signs stable, afebrile SCD's and JJ Hose in place bilaterally Patient is able to plantarflex and dorsiflex actively Sensation is intact to saphenous, sural, superficial and deep peroneal, and tibial distribution Dressings are clean dry and intact Negative signs and symptoms of DVT, negative Homans bilaterally Weight Dosing Weight: 71.9 kg (04/29/24) Dosing Weight: 71.9 kg (04/29/24) Medications Medications (24) Active Scheduled: (13) acetaminophen 500 mg Tablet 1,000 mg 2 tab(s), Oral, q6hr amLODIPine 5 mg tablet 10 mg 2 tab(s), Oral, qDay aspirin 81 mg EC 81 mg 1 tab(s), Oral, BIDM bisacodyl 5 mg EC tablet 10 mg 2 tab(s), Oral, Once docusate sodium 100 mg Capsule 100 mg 1 cap(s), Oral, BID docusate-senna (Senokot S) 50 mg-8.6 mg Tablet 2 tab(s), Oral, BID famotidine 20 mg tablet 20 mg 1 tab(s), Oral, qDay lisinopril 5 mg tablet 10 mg 2 tab(s), Oral, Daily magnesium hydroxide 8% Suspension 30 mL UD 30 mL, Oral, Daily meloxicam 7.5 mg tablet 7.5 mg 1 tab(s), Oral, BIDM metoprolol succinate 25 mg ER tablet 25 mg 1 tab(s), Oral, qDay multivitamin (Myadec) with minerals Therapeutic Multiple Vitamins with Minerals Tablet 1 tab(s), Oral, qDayM vibegron 75 mg Tab 75 mg, Oral, qDay Continuous: (1) Lactated Ringers 1,000 mL 1,000 mL, Intravenous, 100 mL/hr PRN: (10) acetaminophen 325 mg Tablet 650 mg 2 tab(s), Oral, q4h diphenhydramine 25 mg tablet 25 mg 1 tab(s), Oral, q6h diphenhyDRAMINE 50 mg/mL (1 mL) INJ 25 mg 0.5 mL, IV Push, q6h ketorolac 30 mg/1 mL (2mL) vial 7.5 mg 0.25 mL, IV Push, q6h morphine 2 mg/mL 1 mL syringe 2 mg 1 mL, IV Push, q1h ondansetron 2 mg/ 1 mL 2 mL INJ 4 mg 2 mL, IV Push, q8h oxycodone 5 mg tablet (immediate release) 5 mg 1 tab(s), Oral, q4h oxycodone 5 mg tablet (immediate release) 10 mg 2 tab(s), Oral, q4h prochlorperazine 10 mg/2 mL vial 5 mg 1 mL, IV Push, q6h sodium biphosphate-sodium phosphate 19 gm-7 gm Enema 133 mL, Rectal, qDay Lab Results 04/30 05:22 WBC: 16.1 H Hgb: 12.0 Hct: 35.7 Platelet: 189 Neutrophil %: 88.9 H Glucose Level: 138 H Sodium Level: 143 Potassium Level: 5.0 BUN: 18 Creatinine Lvl (s): 0.92 EKG No qualifying data available. Assessment/Plan HTN (hypertension) OA (osteoarthritis) 1. Status post right robotic assisted total knee arthroplasty postop day #1 2. Continue pain medications: Tylenol, meloxicam, oxycodone. Do not take any other nonsteroidal anti-inflammatories while on meloxicam/Mobic. 3. DVT prophylaxis: Take 81 mg aspirin twice daily with food for 4 weeks postoperatively for DVT prophylaxis. Patient denies past history of DVT or pulmonary embolism. 4. Physical therapy: Weightbearing as tolerated with walker 5. H & H: 12.0/35.7, asymptomatic. Postoperative anemia from surgery without intraoperative complications. At this time there is no need for treatment. 6. Reactive Leukocytosis: currently 16.1, afebrile. Patient did receive decadron intra-operatively.No clinical signs of infection. 7. Encouraged incentive spirometry 8. Continue postoperative medical management per medicine 9. Postoperative constipation: Discussed with the patient to continue stool softener until first bowel movement. After first bowel movement patient can then take as needed. They were also instructed that if they are not able to have a bowel movement within 3 days they are to contact our office for change of medication. Patient voiced understanding. 10. Disposition: Plan will be for discharge home today as long as patient remains medically stable,tolerates therapy, and pain is adequately controlled. [facility] She has outpatient physical therapy established. She will follow-up per postoperative instructions. Patient has been instructed to stop the naproxen that she uses athome while on the meloxicam. Upon discharge she will contact her office with any concerns or questions. I have reviewed the [place] Automated Rx Reporting System (OARRS) report for this patient for refill pattern and other prescriber involvement as part of the appropriate surveillance for the provision ofacute and chronic controlled medications. The report was requested and reviewed on the date of thisentry, and was considered in the prescribing process This dictation was created using voice recognition software. Phonetic and/or grammatical errors mayexist. Digitally Signed by FANNIE LEWIS PA-C on 04/30/2024 08:41 AM [facility]09-25-2024 Note ORIGINAL Images acquired, not reported on this accession number.[facility]09-24-2024 Nurse Progress note THIS RN AGREES WITH ENRIQUETA MAR, CURB SETTER ASSESSMENT CHARTING. Digitally Signed by Ofelia Nicolas RN on 04/29/2024 06:23 PM [facility]09-24-2024 Note ORIGINAL EXAMINATION: TWO XRAY VIEWS OF THE RIGHT KNEE 04/29/2024 1:00 pm COMPARISON: None. HISTORY: ORDERING SYSTEM PROVIDED HISTORY: Reason for Exam: Status Post Arthroplasty FINDINGS: New total right knee arthroplasty site appears intact. No postprocedural periprosthetic fracture is seen. There is overlying subcutaneous emphysema and fluid within the suprapatellar bursa. IMPRESSION: Total right knee arthroplasty with expected postoperative changes. Interpreted by: Dagoberto Gerardo DO Preliminary Report By: Dagoberto Gerardo DO Electronically signed By Dagoberto Gerardo DO Dictated Date: 04/29/2024 1:17:08 PM Prelim Date: 04/29/2024 1:18:20 PM Sign Date: 04/29/2024 1:18:20 PM Ordering Provider: [facility]09-24-2024 Anesthesiology Progress note Patient: MOHINI OLIVARES Age: 83 years Sex: Female : 1940 Associated Diagnoses: None Author: MATT FREITAS APRN-SAROJ Preoperative Information Time of last food or liquid consumption: 04/28/2024 23:00:00 Anesthesia history Patient's history: negative. Family's history: negative. Review of Systems Ear/Nose/Mouth/Throat: Negative except as documented in history of present illness. Respiratory: Negative except as documented in history of present illness. Cardiovascular: Negative except as documented in history of present illness. Gastrointestinal: Negative except as documented in history of present illness. Genitourinary: Negative except as documented in history of present illness. Endocrine: Negative except as documented in history of present illness. Musculoskeletal: Negative except as documented in history of present illness. Integumentary: Negative except as documented in history of present illness. Neurologic: Negative except as documented in history of present illness. Health Status Allergies: Allergic Reactions (Selected) Severity Not Documented Amoxicillin- Rash. Ampicillin- Rash., Allergies (2) ActiveSeverityReaction ampicillinrash amoxicillinrash Current medications: (Selected) Inpatient Medications Ordered Betadine 10% topical solution: 17.5 mL, mL/hr, Topical (INT), PREOP pharm Decadron: 10 mg, 1 mL, IV Push, AsDirected LR 1,000 mL: 125 mL/hr, Intravenous, Stop: 04/29/24 23:59:00 EDT Naropin 25 mg + Toradol 15 mg + morphine 2.5 mg + EPINEPHrine 0.3 m mg, 5 mL, mL/hr, Other, PREOP pharm Naropin 25 mg + Toradol 15 mg + morphine 2.5 mg + EPINEPHrine 0.3 m mg, 5 mL, mL/hr, Other, PREOP pharm ceFAZolin: 2 gram(s), 200 mL/hr, IV Piggyback, PREOP pharm tranexamic acid 1 g / 100 mL 0.7% NaCl PMX: 1 gram(s), 100 mL, 300 mL/hr, IV Piggyback, AsDirected tranexamic acid 1 g / 100 mL 0.7% NaCl PMX: 1 gram(s), 100 mL, 300 mL/hr, IV Piggyback, AsDirected Documented Medications Documented Gemtesa 75 mg oral tablet: 75 mg, 1 tab(s), Oral, qDay, 30 tab(s), 0 Refill(s) Metoprolol Succinate ER 25 mg oral TABLET extended release: 25 mg, 1 tab(s), Oral, qDay, 30 tab(s),0 Refill(s) Multivitamin: 1 tab(s), Oral, Daily, 0 Refill(s) Vitamin D3 25 mcg (1000 intl units) oral capsule: 25 mcg, 1 cap(s), Oral, Daily, 0 Refill(s) amLODIPine 10 mg oral tablet: 10 mg, 1 tab(s), Oral, qDay, 30 tab(s), 0 Refill(s) calcium (as carbonate) 600 mg oral tablet: 600 mg, 1 tab(s), Oral, qDay, 0 Refill(s) glucosamine 500 mg oral capsule: 500 mg, 1 cap(s), Oral, Daily, 0 Refill(s) lisinopril 20 mg oral tablet: 10 mg, 0.5 tab(s), Oral, Daily, 0 Refill(s) naproxen 500 mg oral tablet: 250 mg, 0.5 tab(s), Oral, BIDM, PRN: for pain, Medications (8) Active Scheduled: (7) ceFAZolin 2 gram(s), IV Piggyback, PREOP pharm dexamethasone 10 mg/mL (1mL) SDV 10 mg 1 mL, IV Push, AsDirected povidone iodine topical 17.5 mL, Topical (INT), PREOP pharm ropivacaine 25 mg + ketorolac 15 mg + morphine 2.5 mg + epinephrine 0.3 mg 25 mg 5 mL, Other, PREOPpharm ropivacaine 25 mg + ketorolac 15 mg + morphine 2.5 mg + epinephrine 0.3 mg 25 mg 5 mL, Other, PREOPpharm tranexamic acid PMX 1 gram(s) 100 mL, IV Piggyback, AsDirected tranexamic acid PMX 1 gram(s) 100 mL, IV Piggyback, AsDirected Continuous: (1) Lactated Ringers 1,000 mL 1,000 mL, Intravenous, 125 mL/hr PRN: (0) Problem list: No problem items selected or recorded., Active Problems (3) HTN (hypertension) OA (osteoarthritis) Urinary incontinence Histories Past Medical History: No active or resolved past medical history items have been selected or recorded. Family History: No family history items have been selected or recorded. Procedure history: Colonoscopy ([id number]). Excision of cataract ([id number]). 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 Lives In Single level home Current Home Treatments None Special Services and Community Resources None Nutrition/Health 04/29/2024 Type of diet: Regular Appetite Good Eating Difficulties None Skin Breakdown/Decubitus Ulcers No Physical Examination Vital Signs 04/29/2024 8:38 EDT Temperature Temporal Artery 36.3 DegC Peripheral Pulse Rate 56 bpm LOW Respiratory Rate 14 br/min Systolic Blood Pressure Non-Invasive 147 mmHg HI Diastolic Blood Pressure Non-Invasive 65 mmHg Vital Signs (last 24 hrs) Last Charted Temp Nlvazdso72.3 DegC (APR 29 08:38) SBPH 147 mmHg (APR 29 08:38) DBP65 mmHg (APR 29 08:38) Measurements from flowsheet : Measurements 04/29/2024 8:38 EDT Height 161 cm Height in inches 63.4 inch(es) Admission Weight 71.9 kg Weight Lbs 158.2 lb Bath Body Weight 53.29 kg Admission Body Mass Index 27.74 m2 Pain assessment: Pain Assessment 04/29/2024 9:13 EDT Primary Pain Intensity Not Done: Other (Not Done) 04/29/2024 8:38 EDT Primary Pain Intensity 0 Pain Scale Type 0-10 Pain scale . General: Alert and oriented. Airway: Normal neck range of motion. Mallampati classification: II (soft palate, fauces, uvula visible). Head: Normocephalic. Dentition Evaluation: Intact, Own teeth. Neck: Full range of motion. Respiratory: Lungs are clear to auscultation. Cardiovascular: Normal rate. Heart Sounds: Normal. Gastrointestinal: Soft. Musculoskeletal Normal range of motion. Integumentary: Intact, Warm, Dry. Neurologic: Alert, Oriented. Review / Management Results review: No qualifying data available , Lab results 04/29/2024 10:31 EDT SN - GCD - Post-operative Diagnosis UNILATERAL PRIMARY OSTEOARTHRITIS RIGHT KNEE SN - GCD - Case Level Level 6 04/29/2024 10:30 EDT SN - Cul - Culture Type No Specimen per Surgeon 04/29/2024 10:30 EDT SN - CAt - Case Attendee SN - CAt - Case Attendee SN - CAt - Case Attendee SN - CAt - Case Attendee SN - CAt - Case Attendee SN - CAt - Case Attendee SN - CAt - Case Attendee SN - CAt - Case Attendee SN - CAt - Case Attendee SN - CAt - Case Attendee SN - CAt - Case Attendee SN - CAt - Case Attendee SN - CAt - Role Performed Primary Surgeon SN - CAt - Role Performed DENTURE FINISHER SN - CAt - Role Performed Hot Shot 1 SN - CAt - Role Performed Scrub 1 SN - CAt - Role Performed Recovery Manager 1 SN - CAt - Role Performed Agriculture Extension Specialist 04/29/2024 10:27 EDT Consent Form Signed Yes Bedside Procedure Nerve Block Provider #1 Bedside Time Out MATT FREITAS ASBESTOS SIDING MECHANIC-DENTURE FINISHER Provider #2 Bedside Time Out Carl Corbett RN Anesthesia Consent Signed Yes 04/29/2024 10:10 EDT IV Present Present Anesthesia Extension Set Applied Yes CHG Preoperative Wash/Wipe Site specific wipe Preop Nasal Swab Povidone-Iodine Allergy Band on and Verified Yes Anesthesia Consent Signed Yes 04/29/2024 9:45 EDT Response to Advance Directive Request Unable to obtain 04/29/2024 9:21 EDT SN - Preop - CTm Pt Ready for OR/Proced 04/29/2024 9:21 04/29/2024 9:18 EDT Dorsalis Pedis Pulse, Left 2+ Normal Dorsalis Pedis Pulse, Right 2+ Normal Respirations Unlabored Respiratory Pattern Regular Breath Sounds Auscultated Anterior and posterior All Lobes Breath Sounds Clear Skin Temperature Warm Skin Description [place], Normal for ethnicity, Dry Skin Integrity Intact Skin Moisture General Dry Extremity Movement Equal Characteristics of Speech Clear Level of Consciousness Alert Strength All Extremities Strong Tone All Extremities Normal Sensation All Extremities Intact Affect/Behavior Appropriate, Calm, Cooperative Orientation Oriented x 4 Christin Motor (2) Moves 4 extremities voluntarily or on command Christin Respirations (2) Spontaneous respiration without support, RR > 10 Christin Blood Pressure (2) BP 20% above or below preanesthetic level Christin Pulse (2) Pulse 20% above or below preanesthetic level Christin Oxygen Saturation (2) 94% or more Christin Level of Consciousness (2) Fully awake Christin III Score 12 Assistive Device None Positioning Repositions self Mobility Assistance Level Independent Activity Status ADL Awake Standard Safety ID band on, Allergy Band on, Call device within reach, Bed in low position, Wheels locked, Safety level maintained 04/29/2024 9:13 EDT Primary Pain Intensity Not Done: Other (Not Done) celecoxib 400 mg mg famotidine 20 mg mg oxyCODONE Not Done: Other (Not Done) 04/29/2024 9:07 EDT citric acid-sodium citrate Not Done: Other (Not Done) 04/29/2024 8:51 EDT Lactated Ringers Injection 1,000 mL mL 04/29/2024 8:50 EDT Continuous IV Infusions LR Antecubital Left 04/29/2024 20 gauge Peripheral IV Activity: Insert new site Peripheral IV Dressing Condition: Clean, Dry, Intact Peripheral IV Dressing Activity: Applied, Transparent dressing Peripheral IV Line Status/Patency: Continuous infusion Peripheral IV Site Condition: No complications Peripheral IV Equipment: Extension set, PRN Adaptor Peripheral IV Number of Attempts: 1 04/29/2024 8:38 EDT Height 161 cm Height in inches 63.4 inch(es) Admission Weight 71.9 kg Weight Lbs 158.2 lb Bath Body Weight 53.29 kg Admission Body Mass Index 27.74 m2 Temperature Temporal Artery 36.3 DegC Peripheral Pulse Rate 56 bpm LOW Respiratory Rate 14 br/min Systolic Blood Pressure Non-Invasive 147 mmHg HI Diastolic Blood Pressure Non-Invasive 65 mmHg Primary Pain Intensity 0 Pain Scale Type 0-10 Pain scale Heart Rhythm Regular Oxygen Therapy Room air Oxygen Saturation 95 % 04/29/2024 8:33 EDT Allergies Yes Quantitative Equity Head On Yes Consent Form Signed Yes Patient Dressed In Hospital gown CHG Preoperative Wash/Wipe Night before procedure, Day of procedure CHG Skin Prep Completed for Eligible Surgery History & Physical On Chart No Obstructive Sleep Apnea Assess Completed Yes Belongings At Bedside Pants, Shirt, Shoes, Socks, Undergarments NPO Status Maintained Patient ID Band on and Verified Yes Implants Verified Yes Pacemaker/AICD Verified Yes Site Verified by Patient/Family Yes Blood Consent Signed Yes Last Fluid Intake 04/28/2024 19:00 Last Food Intake 04/28/2024 19:00 04/29/2024 8:32 EDT Designated Person #1 We May Share DANIELLE Olivares [phone] Designated Person #1 Relationship Daughter Privacy Restrictions Requested None Status N/A Sensory Deficits None Sleep Apnea Snore No Sleep Apnea Tired No Sleep Apnea Obstruction No Sleep Apnea Pressure Yes Sleep Apnea BMI No Sleep Apnea Age Yes Sleep Apnea Neck No Sleep Apnea Gender No Sleep Apnea Score 2 Diagnosed With Sleep Apnea No Advanced Directives Yes Advance Directive Type [place] Durable Power of Agricultural Plow Operator [facility] [place] Declaration (Living Will) Advance Directive Location Indicates that [place] has been given copy Infectious Disease Symptoms Patient states no symptoms Infectious Disease Recent Exposure No Alcohol and Drug Use No Employee of Institutional Living No Health Care Employee No History of Exposure to TB No History of Positive Chest X-Ray for TB No History of Positive TB Skin Test No Homeless No Known Immunosuppression No Recent Immigrant No Resident of Institutional Living No Bloody Sputum No Fatigue No Fever No Loss of Appetite No Night Sweats No Persistent Cough > 3 Weeks No Weight Loss No Pre-Op Patient Education NPO after midnight, No makeup, No jewelry, Responsible Libertarian, Aware of surgery location, Pre-op education done, 2 bottles CHG wash with instructions given, Instructed to takeordered medications, SSI prevention handout given SN - Preprocedure Comments Spoke with patient, Verbalizes/Nonverbally indicates understanding, Other: Amlodipine, Metoprolol, Gemtesa Barriers to Learning None evident Teaching Method Explanation, Printed materials Preferred Spoken Language Cymraes Preferred Written Language Cymraes Teaching Evaluation Verbalizes/Nonverbally indicates understanding Safety Brochure Information Reviewed Yes [facility] Video Viewed No Information Given by Patient Patient's Current Physicians Patient's Current Physicians Discharge To, Anticipated Home with family care Prev Test Positive/Diagnosis w/COVID-19 No Current Quarantine/Isolated any Illness No Any Contact with Sick Animals/Birds No Traveled Anywhere in Last 30 Days No Lost Weight Unintentionally Recently No Eat Poorly Due to Decreased Appetite No Total MST Score 0 N/A Personal Devices, Patient Valuables Glasses Anesthesia/Transfusions Prior anesthesia Admission Note-Nursing Same Day Patient History 04/29/2024 8:30 EDT SN - Preop - CTm Pt in SDS Room 04/29/2024 8:30 . Assessment and Plan [place] [employer]esthesi[employer] (ASA) physical status classification: Class III. Anesthetic Preoperative Plan Premedication: intravenous. Anesthetic technique: MAC. Induction: intravenously. Maintenance airway: Mask. Regional: Spinal, Adductor Canal Block. Postoperative pain management: Per surgeon. Risks discussed: nausea, vomiting, headache, sore throat, dental injury, hypotension, allergic reaction, serious complications. Informed consent: signed by patient. Digitally Signed by MATT FREITAS on 04/29/2024 10:32 AM [facility]09-05-2024 Note ORIGINAL EXAMINATION: CT OF THE RIGHT KNEE WITHOUT CONTRAST 04/10/2024 3:23 pm TECHNIQUE: CT of the right knee was performed without the administration of intravenous contrast. Multiplanar reformatted images are provided for review. Automated exposure control, iterative reconstruction, and/or weight based adjustment of the mA/kV was utilized to reduce the radiation dose to as low as reasonably achievable.ANAI protocol was performed with axial images through the right hip and right ankle. COMPARISON: None. HISTORY ORDERING SYSTEM PROVIDED HISTORY: Reason for Exam: Unilateral primary osteoarthritis, right knee FINDINGS: There is no acute fracture or dislocation. There is no aggressive periosteal reaction. Tricompartmental osteoarthritis of the right knee severe in the medial compartment with asymmetric joint space narrowing, bone on bone, subchondral sclerosis and marginal osteophyte formation. Quadriceps enthesopathy. Spurring of the tibial spines and intercondylar notch. Lateral coronal tibiofemoral subluxation. Small knee joint effusion. Small popliteal Blood's cyst. Lateral patellar tilting. Distended bladder. Uterus and adnexa cannot be evaluated on CT. Mild degenerative changes the pubic symphysis with chondrocalcinosis. Femoroacetabular joint space narrowing. Multifocal pelvic enthesopathy. Indeterminate 5 mm sclerotic focus in the left pubic body (series 2, image 19). Small right inguinal hernia containing fat and segment of small bowel. Diffuse subcutaneous edema of the ankle. Retrocalcaneal enthesopathy. Bilateral Multipartite os navicularis. Soft tissues within normal limits. IMPRESSION: Tricompartmental osteoarthritis of the right knee severe in the medial compartment in patient for preop planning. Small knee joint effusion and small popliteal Blood's cyst. Indeterminate 5 mm sclerotic focus in the left pubic body. Small right inguinal hernia containing fat and a segment of small bowel. Interpreted by: Alem Resendiz Preliminary Report By: Alem Resendiz Electronically signed By Alem Resendiz Dictated Date: 04/10/2024 3:37:23 PM Prelim Date: 04/10/2024 3:55:47 PM Sign Date: 04/10/2024 3:55:47 PM Ordering Provider[facility] Future Appointments [facility] Evaluation note* Diagnosis Onset Date Resolution Status Right knee DJD acute [facility] Work Phone: Evaluation noteNo assessment information available [facility] Work Phone: Evaluation note* Diagnosis Onset Date Resolution Status Osteoarthritis of left knee acute Aortic stenosis acute Syncope acute [facility] Work Phone: Evaluation note* Diagnosis Onset Date Resolution Status Osteoarthritis of right knee acute [facility] Work Phone: Evaluation note* Diagnosis Onset Date Resolution Status Aortic stenosis acute Syncope acute [facility] Work Phone: Hospital course Narrative No data available for this section [facility] Hospital Discharge instructions No data available for this section [facility] Hospital Discharge instructionsAdditional Instructions Okay to take ibuprofen/advil/motrin 400-600 mg PO q6hr PRN pain and/or Tylenol 650mg PO Q6H PRN pain along with Tramadol. Hold naproxen if taking ibuprofen/Advil/Motrin--same drug class Take all pain meds with food. Tramadol can cause constipation recommend taking daily stool softener (i.e. Colace/docusate) while taking the pain meds. Recommend starting some MiraLAX in 1-2 days if no bowel movement. If still no bowel movement the next day recommend taking magnesium citrate half the bottle and waiting 4-6 hours if still no results take the other half the bottle.[facility] Work Phone: Hospital Discharge instructionsAmbulatory Orders* Urology Location: None [facility] Work Phone: Progress note No data available for this section [facility] Progress note Author Inge Ryan [facility] Note Date/Time May 01, 2025 1:40pm [facility] [address] [place] [address] OFFICE VISIT Date of Service: 05/01/25 MR#: [id number] Acct: [id number] Patient: MOHINI OLIVARES Rep #: [id number] : 1940 Provider: Surgery Nurse Age/Sex: 84/F Location: [facility] Status: Signed Intake Vital Signs 04/30/25 08:21 Height 5 ft 4 in Intake Visit Reasons: unable to void Chief Complaint: unable to void/requires barrera catheter Is patient in pain?: No Allergies ampicillin Allergy (Unknown, Verified 05/01/25 13:35) unknown amoxicillin Allergy (Verified 05/01/25 13:35) Rash Medications ?Medication ?Instructions ?Recorded ?Confirmed ?Type multivitamin (Daily Multi-Vitamin 1 tab PO DAILY 10/1905/01/25 History tablet) [id number] 1 tab PO DAILY 02/15/23 05/01/25 History [Citracal Plus] glucosamine HCl 500 mg tablet 500 mg PO DAILY 02/15/23 05/01/25 History vibegron 75 mg tablet (Gemtesa) 75 mg PO DAILY 3 05/01/25 History lisinopril 10 mg tablet 10 mg PO DAILY #30 tabs 09/0705/01/25 Rx metoprolol succinate 25 mg 25 mg PO QDAY 10/09/2404/07 History tablet,extended release 24 hr naproxen 500 mg tablet 250 mg PO BID PRN pain 10/0905/01/25 History amlodipine 5 mg tablet 5 mg PO DAILY 04/16/2505/01 History tramadol 50 mg tablet 50 mg PO Q6H PRN pain #7 tab s 04/30/25 05/01/25 Rx Have you fallen in the past year?: No Nursing Note Patient here for barrera catheter placement due to unable to void. Patient did c/ofullness, but no pain. Said she dribbled a few drops prior to leaving house. Patient is on gemtesa. Patient prepped and draped for barrera catheter placement. 16Fr 10cc barrera catheter inserted via sterile technique after 3 attempts. Yellowurine flow upon placement. Leg bag attached with leg strap for catheter. Patientcleansed and assisted with sitting up. Educated patient on how to drain urine and how to apply a barrera bag at nighttime instead of leg bag. Clean urinal given. Patient had 220cc output. Did discuss with patient that [facility] home health left messagefor Dr Edward's office to call back in regards to have urinary catheter. Assessment and Plan Assessment and Plan Orders: Referrals Urology R33.9 - Retention of urine, unspecified Medications: Discontinued tamsulosin (Flomax) Discontinued Reason: Order Changed 0.4 mg PO QDAY 20 caps 0RF Clinical Quality Measures Falls Risk Screening/Assistive Devices Have you fallen in the past year?: No 05/02/25 1005 <Electronically signed by Inge Nagy am, MD> Date _ Inge Ryan MD Cosigner Signature: Date (if applicable) CC: ~ [facility] Work Phone: Progress note Author June Edward [facility] Note Date/Time May 05, 2025 9:40am [facility] [address] [place] [address], [address] [place] [address] OFFICE VISIT Date of Service: 05/05/25 MR#: [id number] Acct: [id number] Name: MOHINI OLIVARES Rep #: [id number] : 1940 Provider: Dr. Alfredo Edward MD Age/Sex: 84/F [place] [facility] Status: Signed Intake Vital Signs 04/30/25 08:21 05/05/25 09:18 Height 5 ft 4 in 5 ft 4 in Weight: 158 lb BMI 27.1 BP 130/89 H Pulse 52 L Intake Visit Reasons: PVR Chief Complaint: PVR Textile Bag Sewer Required: No Accompanied by: self Is patient in pain?: No Allergies ampicillin Allergy (Unknown, Verified 05/05/25 09:16) unknown amoxicillin Allergy (Verified 05/05/25 09:16) Rash Medications ?Medication ?Instructions ?Recorded ?Confirmed ?Type multivitamin (Daily Multi-Vitamin 1 tab PO DAILY 10/1905/05/25 History tablet) [id number] 1 tab PO DAILY 02/15/23 05/05/25 History [Citracal Plus] glucosamine HCl 500 mg tablet 500 mg PO DAILY 02/15/23 05/05/25 History lisinopril 10 mg tablet 10 mg PO DAILY #30 tabs 09/0705/05/25 Rx metoprolol succinate 25 mg 25 mg PO QDAY 10/09/2404/08 History tablet,extended release 24 hr naproxen 500 mg tablet 250 mg PO BID PRN pain 10/0905/05/25 History amlodipine 5 mg tablet 5 mg PO DAILY 04/16/2505/05 History Have you fallen in the past year?: No Nurse's Note: stopped gemtesa for inguinal hernia repair on Bladder scan PVR 23cc [facility] Medical History (Updated 05/05/25 @ 09:[address] June Edward MD) Nocturia Urge incontinence Wears glasses Ambulates with cane OAB (overactive bladder) Non-smoker Hypertension History of stress test History of echocardiogram Cardiology follow-up encounter Right inguinal hernia Osteoarthritis of right knee Holter monitor, abnormal Syncope Strain of left knee Difficulty balancing Incontinence Knee pain Cancer of skin Arthritis Hx of fracture of wrist Right knee DJD Right knee pain Melanoma Basal cell carcinoma Chest pain Osteoarthritis Surgical History History of colonoscopy History of total right knee replacement (~04/2024) History of dilatation and curettage History of cataract extraction Family History Mother Hypertension Heart disease Cancer Melanoma Father Emphysema of lung Grandmother Diabetes Grandfather Myocardial infarction Brother Melanoma Other Right knee DJD Social History Smoking Status: Never smoker alcohol intake: never substance use type: does not use caffeine: Yes (Occasionally) HPI HPI Urology Chief Complaint: PVR Details: MOHINI OLIVARES, is a 84 F. She had an inguinal hernia repair last week and had postoperative urinary retention. Her Gemtesa was subsequently held. Her Barrera catheter was removed at home before bed last night. She is here currently for a postvoid residual assessment. She voided at 5:30am. No straining to void. There is no constipation, it was resolved yesterday. We discussed how the constipation can increase the risk of urinary retention. She did take some softeners, Miralax on Sunday. We discussed taking something regularly for the next few weeks. ROS Const Constitutional: No chills, fatigue, fever(s), headache(s), night sweats, weakness, weight change, abnormal sleep pattern or change in appetite Eyes Eyes: No change in vision ENT ENT: No headache(s) or dry mouth Resp Respiratory: No cough, chest congestion, shortness of breath or wheezing Cardio Cardiology: Positive for other (No chest pain.); No shortness of breath, irregular heart rhythm or lightheadedness Gastro GI: Positive for constipation and other (No nausea.); No abdominal pain, change in bowel habits, diarrhea or vomiting Musc Musculoskeletal: No abnormal gait Skin Skin: No yellowing of the eye, lesions, itchy eyes, rash or skin ulcer Neuro Neurology: No abnormal gait, confusion, dizziness, weakness, headache(s) or memory loss Psych Psychiatric: No abnormal sleep pattern, No change in appetite, No confusion and No memory loss Endo Endocrine: No fatigue, increased thirst/drinking or weight change Aller/Imm Allergy/Immunologic: No itchy eyes or wheezing Saeid/Lymp Hematologic/Lymphatic: No easy bleeding, easy bruising or enlarged lymph nodes Exam Const General: cooperative, healthy appearing, comfortable, no acute distress and other (walking with cane.) [facility] Head: normocephalic and atraumatic Ears: hearing grossly normal bilaterally and external ears normal Nose: external nose normal Eyes General: appearance normal, both eyes and all related structures Neck Neck: normal visual inspection and trachea midline Chest Chest palpation & inspection: normal inspection of the chest Resp Effort & Inspection: normal respiratory effort, able to speak in complete sentences and symmetric chest movement Cardio Rate: regular rate GI Inspection: normal to inspection Palpation: soft and nontender General: No CVA tenderness Skin General: no rashes or lesions noted Neuro General: patient alert, patient awake, patient oriented x3 and CN's II-XI intactbilaterally Extrem General: normal to inspection Psych Appearance: grossly normal and well kempt Mental Status: mental status grossly normal Office Procedures Post Void Residual Post Void Residual: 23cc Coding Level of Care Code Off vis,est,level 4 Diagnoses Urinary retention R33.9 Urge incontinence N39.41 Nocturia R35.1 Constipation K59.00 Assessment and Plan Assessment and Plan (1) Urinary retention: Status: Acute Comment: post operative (2) Urge incontinence: Status: Acute (3) Nocturia: Status: Acute (4) Constipation: Status: Acute Orders: Orders PVR Today N39.41 - Urge incontinence Plan aggressive management of bowel function hold Gemtesa for 2 more weeks and then resume daily dose return for repeat PVR in office in 4 weeks. Plan Details Follow Up: 4 Weeks (med f/u with PVR) Clinical Quality Measures Falls Risk Screening/Assistive Devices Have you fallen in the past year?: No 05/05/25 0941 <Electronically signed by June Edward MD> Date _ June Edward MD Cosigner Signature: Date (if applicable) CC: ~ [facility] Work Phone: Reason for referral (narrative)No reason for referral information availableWAultman [facility] Work Phone: Chief Complaint and Reason for Visit Chief Complaint SCREENING RIGHT KNEE xray OA RT KNEE. RX HERE Reason for Visit Right knee DJD Chief Complaint LFT LEG PAIN LEFT KNEE room 1 SYNCOPE / ABN HOLTER (JOVITA) SYNCOPE AND COLLAPSE Reason for Visit Osteoarthritis of le ft knee Aortic stenosis Syncope Chief Complaint RIGHT KNEE Reason for Visit Osteoarthritis of ri ght knee Chief Complaint 6 M FU hypertension Reason for Visit Aortic stenosis Syncope Chief Complaint Admit Date 1 Y FU October 09, 2024 10:1 4am Reason for Visit Admit Date Syncope October 09, 2024 10:1 4am Aortic stenosis October 09, 2024 10:1 4am Bradycardia October 09, 2024 10:1 4am Chief Complaint Admit Date Inguinal hernia March 27, 2025 12 :27pm Chief Complaint Admit Date Inguinal hernia March 27, 2025 12 :27pm Lap Robotic Right poss bilateral Inguina l Hernia w April 30, 2025 7:51am Lap Robotic Right poss bilateral Inguina l Hernia w April 30, 2025 8:46am unable to void May 01, 2025 12:51pm PVR May 05, 2025 9:14am Reason for Visit Admit Date Right inguinal hernia March 27, 2025 12:27pm Right inguinal hernia April 30 7:51am Constipation May 05, 2025 9:14am Nocturia May 05, 2025 9:14am Urge incontinence May 05, 2025 9:14am Urinary retention May 05, 2025 9:14am Chief Complaint Admit Date Inguinal hernia March 27, 2025 12 :27pm Lap Robotic Right poss bilateral Inguina l Hernia w April 30, 2025 7:51am Lap Robotic Right poss bilateral Inguina l Hernia w April 30, 2025 8:46am unable to void May 01, 2025 12:51pm PVR May 05, 2025 9:14am HERNIA 04-30May 15, 2025 1 :03pm Reason for Visit Admit Date Right inguinal hernia March 27, 2025 12:27pm Right inguinal hernia April 30 7:51am Constipation May 05, 2025 9:14am Nocturia May 05, 2025 9:14am Urge incontinence May 05, 2025 9:14am Urinary retention May 05, 2025 9:14am S/P bilateral inguinal hernia repair Oct kirstie 2024 1:03pm Advance Directives No Advanced Directives Records Found Advance Directive Response Recorded Date/ Time Living Will Yes September 28 2:12pm Power of Agricultural Plow Operator Yes September 28, 2019 2:12pm Advance Directive Response Recorded Date/ Time Living Will Yes September 28 1:12pm Power of Agricultural Plow Operator Yes September 28, 2019 1:12pm Advance Directive Response Recorded Date/ Time Name of Medical Power of Agricultural Plow Operator zion adriana October 02, 2023 1:53pm Living Will Yes October 02 024 1:53pm Power of Agricultural Plow Operator Yes October 02, 2023 1:53pm Advance Directive Response Recorded Date/ Time Living Will Yes September 28 2:12pm Do you have a Healthcare Power of Agricultural Plow Operator? Yes September 28, 2019 2:12pm Advance Directive Response Recorded Date/ Time Do you have a Healthcare Power of Agricultural Plow Operator? Yes April 16, 2025 8:12am Family History No Family History Records Found Relationship Condition Age at Onset Recorded Date/T kvng Not Specified Osteoarthritis of right knee Unknown mother Hypertension Unknown Cardiac disease Unknown Malignant neoplasm Unknown Malignant melanoma Unknown father Pulmonary emphysema Unknown grandmother Diabetes mellitus Unknown grandfather Myocardial infarction Unknown brother Malignant melanoma Unknown Relationship Condition Age at Onset Recorded Date/T kvng mother Hypertension Unknown Cardiac disease Unknown Malignant neoplasm Unknown Malignant melanoma Unknown father Pulmonary emphysema Unknown grandmother Diabetes mellitus Unknown grandfather Myocardial infarction Unknown brother Malignant melanoma Unknown Summary Purpose Additional Source Comments Goals (unrecognized section and content) Goals may be documented in a n alternate sectionGoals may be documented in an alternate sectionGoals may be documented in an alternate sectionGoals may be documented in an alternate sectionGoals may be documented in an alternate sectionGoals may be documented in an alternate section No data available for this section No data available for this section No data available for this sectionGoals may be documented in an alternate sectionGoals may be documented in an alternate section Care Teams (unrecognized sec tion and content) Team Status: Active Member Role Status Dates Dr. Rey Hussein MD Family Provider Active Dr. Rey Hussein MD Primary Care Provider Active Team Status: Inactive Member Role Status Dates Dr. Rey Hussein MD Primary Care Provider, Referring Provider Active Jesus MAE PA Attending Provider Active Team Status: Inactive Member Role Status Dates Dr. Rey Hussein MD Primary Care Provider, Referring Provider Active Dr. Matt Donald DO Attending Provider Active Team Status: Inactive Member Role Status Dates Dr. Rey Hussein MD Primary Care Provider, Referring Provider Active Dr. Derrick Potter MD Attending Provider Active Team Status: Inactive Member Role Status Dates Dr. Rey Hussein MD Primary Care Provider Active Dr. Derrick Potter MD Attending Provider Active Team Status: Active Member Role Status Dates Dr. Rey Hussein MD Primary Care Provider Active Dr. Derrick Potter MD Attending Provider Active Team Status: Inactive Member Role Status Dates Dr. Rey Hussein MD Primary Care Provider Active Dr. Derrick Potter MD Attending Provider, Referring Pro vider Active Team Status: Inactive Member Role Status Dates Dr. Rey Hussein MD Primary Care Provider, Attending Provider Active Team Status: Inactive Member Role Status Dates Dr. Rey Hussein MD Primary Care Provider, Referring Provider Active Effie Vera SAP BW ARCHITECT, SAP BW ARCHITECT-C Attending Provider Active Team Status: Inactive Member Role Status Dates Dr. Rey Hussein MD Primary Care Provider Active Dr. Prashant Rodrigues DO Attending Provider, Emergency Pro vider Active Team Status: Inactive Member Role Status Dates Dr. Rey Hussein MD Primary Care Provider Active Start: October 09, 2024 End: October 09, 2024 Dr. Rey Hussein MD Referring Provider Active Start: October 09, 2024 End: October 09, 2024 Spike Aranda SAP BW ARCHITECT, SAP BW ARCHITECT-C Attending Provider Active S tart: October 09, 2024 End: October 09, 2024 Team Status: Inactive Member Role Status Dates Dr. Rey Hussein MD Primary Care Provider Active Start: January 09, 2025 End: January 09, 2025 Dr. Rey Hussein MD Attending Provider Active Start: January 09, 2025 End: January 09, 2025 Dr. Rey Hussein MD Referring Provider Active Start: January 09, 2025 End: January 09, 2025 Team Status: Active Member Role/Relationship Status Dates Dr. Rey Hussein MD Family Provider Active Dr. Rey Hussein MD Primary Care Provider Active Team Status: Inactive Member Role/Relationship Status Dates Dr. Rey Hussein MD Primary Care Provider Active Start: January 09, 2025 End: January 09, 2025 Dr. Rey Hussein MD Attending Provider Active Start: January 09, 2025 End: January 09, 2025 Dr. Rey Hussein MD Referring Provider Active Start: January 09, 2025 End: January 09, 2025 Team Status: Inactive Member Role/Relationship Status Dates Dr. Rey Hussein MD Primary Care Provider Active Start: February 03, 2025 Dr. June Edward MD Attending Provider Active Start: February 03, 2025 Team Status: Inactive Member Role/Relationship Status Dates Dr. Rey Hussein MD Primary Care Provider Active Start: March 27, 2025 End: March 27, 2025 Dr. Rey Hussein MD Referring Provider Active Start: March 27, 2025 End: March 27, 2025 Dr. Inge Ryan MD Attending Provider Active Start: March 27, 2025 End: March 27, 2025 Team Status: Active Member Role/Relationship Status Dates Dr. Rey Hussein MD Primary care physician Active Team Status: Inactive Member Role/Relationship Status Dates Dr. Rey Hussein MD Primary care physician Active Start: January 09, 2025 End: January 09, 2025 Dr. Rey Hussein MD Attending physician Active Start: January 09, 2025 End: January 09, 2025 Dr. Rey Hussein MD Referring Provider Active Start: January 09, 2025 End: January 09, 2025 Team Status: Inactive Member Role/Relationship Status Dates Dr. Rey Hussein MD Primary care physician Active Start: February 03, 2025 Dr. June Edward MD Attending physician Active Start: February 03, 2025 Team Status: Inactive Member Role/Relationship Status Dates Dr. Rey Hussein MD Primary care physician Active Start: March 27, 2025 End: March 27, 2025 Dr. Rey Hussein MD Referring Provider Active Start: March 27, 2025 End: March 27, 2025 Dr. Inge Ryan MD Attending physician Active Start: March 27, 2025 End: March 27, 2025 Team Status: Inactive Member Role/Relationship Status Dates Dr. Rey Hussein MD Primary care physician Active Start: April 30, 2025 End: April 30, 2025 Dr. Inge Ryan MD Attending physician Active Start: April 30, 2025 End: April 30, 2025 Dr. Inge Ryan MD Referring Provider Active Start: April 30, 2025 End: April 30, 2025 Team Status: Active Member Role/Relationship Status Dates Dr. Rey Hussein MD Primary care physician Active Start: April 30, 2025 Dr. Inge Ryan MD Attending physician Active Start: April 30, 2025 Dr. Inge Ryan MD Referring Provider Active Start: April 30, 2025 Dr. Inge Ryan MD Nurse Practitioner Active Start: April 30, 2025 Team Status: Inactive Member Role/Relationship Status Dates Dr. Rey Hussein MD Primary care physician Active Start: May 01, 2025 End: May 01, 2025 Dr. Rey Hussein MD Referring Provider Active Start: May 01, 2025 End: May 01, 2025 Surgery Nurse Attending physician Active Start: May 01, 2025 End: May 01, 2025 Team Status: Inactive Member Role/Relationship Status Dates Dr. Rey Hussein MD Primary care physician Active Start: May 05, 2025 End: May 05, 2025 Dr. Rey Hussein MD Referring Provider Active Start: May 05, 2025 End: May 05, 2025 Dr. June Edward MD Attending physician Active Start: May 05, 2025 End: May 05, 2025 Team Status: Inactive Member Role/Relationship Status Dates Dr. Rey Hussein MD Primary care physician Active Start: February 03, 2025 Dr. June Edward MD Attending physician Active Start: February 03, 2025 Team Status: Inactive Member Role/Relationship Status Dates Dr. Rey Hussein MD Primary care physician Active Start: March 27, 2025 End: March 27, 2025 Dr. Rey Hussein MD Referring Provider Active Start: March 27, 2025 End: March 27, 2025 Dr. Inge Ryan MD Attending physician Active Start: March 27, 2025 End: March 27, 2025 Team Status: Inactive Member Role/Relationship Status Dates Dr. Rey Hussein MD Primary care physician Active Start: April 30, 2025 End: April 30, 2025 Dr. Inge Ryan MD Attending physician Active Start: April 30, 2025 End: April 30, 2025 Dr. Inge Ryan MD Referring Provider Active Start: April 30, 2025 End: April 30, 2025 Team Status: Active Member Role/Relationship Status Dates Dr. Rey Hussein MD Primary care physician Active Start: April 30, 2025 Dr. Inge Ryan MD Attending physician Active Start: April 30, 2025 Dr. Inge Ryan MD Referring Provider Active Start: April 30, 2025 Dr. Inge Ryan MD Nurse Practitioner Active Start: April 30, 2025 Team Status: Inactive Member Role/Relationship Status Dates Dr. Rey Hussein MD Primary care physician Active Start: May 01, 2025 End: May 01, 2025 Dr. Rey Hussein MD Referring Provider Active Start: May 01, 2025 End: May 01, 2025 Dr. Inge Ryan MD Attending physician Active Start: May 01, 2025 End: May 01, 2025 Team Status: Inactive Member Role/Relationship Status Dates Dr. Rey Hussein MD Primary care physician Active Start: May 05, 2025 End: May 05, 2025 Dr. Rey Hussein MD Referring Provider Active Start: May 05, 2025 End: May 05, 2025 Dr. June Edward MD Attending physician Active Start: May 05, 2025 End: May 05, 2025 Team Status: Inactive Member Role/Relationship Status Dates Dr. Rey Hussein MD Primary care physician Active Start: May 15, 2025 End: May 15, 2025 Dr. Rey Hussein MD Referring Provider Active Start: May 15, 2025 End: May 15, 2025 Dr. Inge Ryan MD Attending physician Active Start: May 15, 2025 End: May 15, 2025 INFORMATION SOURCE (unrecogn ized section and content) DATE CREATED AUTHOR 04/12/2024 [facility] ([place] DATE CREATED AUTHOR AUTHOR'S ORGANIZ ATION 05/16/2024 [facility] DATE CREATED AUTHOR AUTHOR'S ORGANIZ ATION 06/03/2025 [facility] FOR RECORDS PERTAINING TO PATIENTS WHO ARE OR HAVE BEEN ENROLLED IN A CHEMICAL DEPENDENCY/SUBSTANCEABUSE PROGRAM, SOME INFORMATION MAY BE OMITTED. This clinical summary was aggregated from multiple sources. Caution should be exercised in using it in the provision of clinical care. This summary normalizes information from multiple sources, and as a consequence, information in this document may materially change the coding, format and clinical context of patient data. In addition, data may be omitted in some cases. CLINICAL DECISIONS SHOULD BE BASED ON THE PRIMARY CLINICAL RECORDS. [employer] [facility]. provides no warranty or guarantee of the accuracy or completeness of information in this document.
[2025-07-10 11:16] LABS: AST(SGOT) 20 U/L (<=31); Alanine Aminotransfer ALT/SGPT 13 U/L (<=34); Albumin, Serum 4.2 g/dL (3.4-4.8); Alkaline Phosphatase 70 U/L (35-104); Anion Gap 12 (5-15); BUN 20 mg/dL (4-19); BUN/Creat Ratio 24.9 RATIO (10-20); Calcium,Total 9.3 mg/dL (7.6-11.0); Carbon Dioxide 25.6 mmol/L (21.0-32.0); Chloride 104 mmol/L (98-108); Cholesterol 206 mg/dL (<=200); Globulin 2.5 g/dL (2.2-4.2); Glucose 99 mg/dL (70-99); Low Density Lipoprotein Calc. 136 mg/dL; Potassium 4.2 mmol/L (3.3-5.1); Triglycerides 105 mg/dL; Very Low Density Lipoprotein 21 mg/dL (5-40); Vitamin D,25 Hydroxy 42.1 ng/mL (30-100); cholesterol:hdl ratio screen 4.02
== END | disposition home or self-care (01) ==
LOC: MFPLAB 08:31
PROVIDERS: PCP Family Medicine; Visit Provider Family Medicine
DX: E55.9 Vitamin D deficiency, unspecified (principal); I10 Essential (primary) hypertension
CPT/HCPCS: 36415; 80053; 80061; 82306